=== PATIENT | female | born 1935 | race Caucasian/White ===

== ENCOUNTER 2017-01-03 10:37 | Emergency (ER) | payer MEDICARE ==
[2017-01-03 10:44] VITALS: BP 185/85
--- NOTE | 2017-01-03 10:53 | UC ---
Lower Extremity/Ankle HPI - HPI Summary HPI Summary: 81 yo female had glass top of table fall on dorsum or right foot Occurred about a week ago persistent pain and swelling able to bear wt came in at insistence of daughter - History of Current Complaint Chief Complaint: UCLowerExtremity Stated Complaint: FOOT INJURY Time Seen by Provider: 01/03/17 10:49 Hx Obtained From: Patient Onset/Duration: Sudden Onset Severity Initially: Moderate Severity Currently: Mild Pain Intensity: 4 Pain Scale Used: 0-10 Numeric Aggravating Factor(s): Standing, Ambulation Alleviating Factor(s): Rest, Elevation Able to Bear Weight: Yes - Allergies/Home Medications Allergies/Adverse Reactions: Allergies Allergy/AdvReac Type Severity Reaction Status Date / Time No Known Allergies Allergy Verified 07/27/16 10:48 Home Medications: Home Medications Lisinopril TAB* [Prinivil TAB*] 10 mg PO DAILY 01/03/17 [History Confirmed 01/03] PMH/Surg Hx/FS Hx/Imm Hx Previously Healthy: Yes Cardiovascular History: Hypertension Other History Of: Negative For: HIV, Hepatitis B, Hepatitis C - Surgical History Surgical History: Yes Surgery Procedure, Year, and Place: LEFT FOOT SURGERY/PIN PLACEMENT, INGUINAL HERNIA REPAIR, TONSILS, CATARACT REPAIR-BILATERAL EYES 2012 - Family History Known Family History: Positive: Diabetes Negative: Cardiac Disease, Hypertension, Renal Disease - Social History Alcohol Use: Weekly Alcohol Amount: WINE Substance Use Type: None Smoking Status (MU): Former Smoker Amount Used/How Often: 1/2 PPD Length of Time of Smoking/Using Tobacco: 5 YEARS Have You Smoked in the Last Year: No When Did the Patient Quit Smoking/Using Tobacco: 1972 Review of Systems Constitutional: Negative Skin: Bruising Eyes: Negative ENT: Negative Respiratory: Negative Cardiovascular: Negative Gastrointestinal: Negative Genitourinary: Negative Motor: Negative Neurovascular: Negative Musculoskeletal: Arthralgia Neurological: Negative Psychological: Negative Is Patient Immunocompromised?: No All Other Systems Reviewed And Are Negative: Yes Physical Exam Triage Information Reviewed: Yes Appearance: Well-Appearing, No Pain Distress, Well-Nourished Vital Signs: Initial Vital Signs Temp 97.1 F 01/03/17 10:41 Pulse 66 01/03/17 10:41 Resp 16 01/03/17 10:41 BP 185/85 01/03/17 10:41 Pulse Ox 99 01/03/17 10:41 Vital Signs Reviewed: Yes Eyes: Positive: Conjunctiva Clear ENT: Positive: Hearing grossly normal. Negative: Nasal congestion, Nasal drainage, Trismus, Muffled/hoarse voice Neck: Positive: Supple, Nontender Respiratory: Positive: Lungs clear, Normal breath sounds, No respiratory distress Cardiovascular: Positive: RRR, No Murmur Musculoskeletal: Positive: Edema @ - dorum of right foot Neurological: Positive: Alert Psychological Exam: Normal Lower Extremity Course/Dx - Course Course Of Treatment: declines post op shoe or CAM boot - Differential Dx/Diagnosis Provider Diagnoses: right foot contusion Discharge - Discharge Plan Condition: Stable Disposition: HOME Patient Education Materials: Contusion in Adults (ED) Referrals: Анна Caputo MD [Primary Care Provider] - 5 Days (for bp recheck) Additional Instructions: rest elevate ice tylenol if needed for pain Images Feet (Multiple View): 1 - tender and ecchymotic
--- NOTE | 2017-01-03 11:26 | RAD ---
Indication: Injury to the dorsum of the foot one week ago. Dorsal and lateral foot pain. Comparison: September 25, 2009 Technique: AP, lateral, and oblique views RIGHT foot. REPORT AND IMPRESSION: Negative for fracture or articular malalignment. Small Achilles tendon insertion bone spur. Moderate osteoarthritis at the first metatarsal phalangeal joint with mild interval worsening. Soft tissue swelling over the dorsum of the forefoot.
== END 2017-01-03 11:40 | disposition home or self-care (01) ==
LOC: UCEAST 10:37
DX: S90.31XA Contusion of right foot, initial encounter (principal); W20.8XXA Other cause of strike by thrown, projected or falling object, initial encounter; Y93.9 Activity, unspecified; Y92.9 Unspecified place or not applicable; I10 Essential (primary) hypertension; Z98.42 Cataract extraction status, left eye; Z98.41 Cataract extraction status, right eye; Z87.891 Personal history of nicotine dependence
CPT/HCPCS: 99211; G0463

== ENCOUNTER 2017-12-26 17:38 | Observation (INO) | payer MEDICARE ==
[2017-12-26] MEDS ORDERED: Nitroglycerin TAB 0.4 MG* 0.4 MG TAB SL ONE (18:16)
[2017-12-26] MEDS ORDERED: Aspirin 81 mg CHEW TAB* 81 MG TAB.CHEW PO ONE (18:16)
--- NOTE | 2017-12-26 18:22 | ED ---
HPI Chest Pain - HPI Summary HPI Summary: Pt is an 82 year old female presenting to the ED with a chief complaint of chest pain in her mid-sternal area onset around 1600 while she was on the phone. At its worst, the pain was around 7-8/10, and currently is at a 5/10, described as a sharp, stabbing pain that radiates mildly to her R trapezius area. After onset, she took 81mg aspirin which helped. She denies experiencing any nausea, diaphoresis, SOB, and ankle swelling. She also states the pain is worse upon deep breaths, and that she got very chilly when it first came on. Pt states she has a hx of HTN, HLD, diabetes, and a hiatal hernia. Pt denies a hx of CO, cardiac stents, or GERD. NKDA. - History of Current Complaint Chief Complaint: EDChestPainROMI Time Seen by Provider: 12/26/17 18:06 Hx Obtained From: Patient Onset/Duration: Started Hours Ago - around 1600 Timing: Constant Initial Severity: Moderate Current Severity: Moderate Pain Intensity: 7 Pain Scale Used: 0-10 Numeric Chest Pain Location: Mid Sternal Chest Pain Radiates: Yes Chest Pain Radiates To:: Neck - L trapezius area Character: Sharp/Stabbing Aggravating Factor(s): Deep Breaths Alleviating Factor(s): Rest, Medication - 81mg aspirin - Allergy/Home Medications Allergies/Adverse Reactions: Allergies Allergy/AdvReac Type Severity Reaction Status Date / Time No Known Allergies Allergy Verified 12/26/17 20:50 PMH/Surg Hx/FS Hx/Imm Hx Previously Healthy: No Endocrine/Hematology History: Reports: Hx Diabetes - BORDERLINE DIABETIC - CONTROLLING WITH DIET Denies: Hx Thyroid Disease Cardiovascular History: Reports: Hx Hypertension Denies: Hx Myocardial Infarction, Hx Pacemaker/ICD, Other Cardiovascular Problems/Disorders - cardiac stents Respiratory History: Reports: Other Respiratory Problems/Disorders - ELEVATED LEFT LUNG Denies: Hx Asthma, Hx Chronic Obstructive Pulmonary Disease (COPD), Hx Lung Cancer, Hx Pneumonia, Hx Pulmonary Embolism GI History: Reports: Hx Hiatal Hernia - NO MEDS Denies: Hx Gall Bladder Disease, Hx Gastroesophageal Reflux Disease, Hx Gastrointestinal Bleed, Hx Ulcer, Hx Urosepsis History: Denies: Hx Kidney Stones, Hx Renal Disease Musculoskeletal History: Reports: Hx Back Problems - spinal stenosis, herniated disk Sensory History: Reports: Hx Contacts or Glasses - GLASSES Denies: Hx Hearing Aid Opthamlomology History: Reports: Hx Contacts or Glasses - GLASSES Neurological History: Reports: Other Neuro Impairments/Disorders - PAIN CLINIC PATIENT Denies: Hx Dementia, Hx Migraine, Hx Seizures, Hx Transient Ischemic Attacks (TIA) Psychiatric History: Denies: Hx Anxiety, Hx Depression, Hx Panic Disorder, Hx Schizophrenia, Hx Bipolar Disorder - Surgical History Surgery Procedure, Year, and Place: LEFT FOOT SURGERY/PIN PLACEMENT, INGUINAL HERNIA REPAIR, TONSILS, CATARACT REPAIR-BILATERAL EYES 2013 Hx Anesthesia Reactions: No - Immunization History Immunizations Up to Date: Yes Infectious Disease History: No Infectious Disease History: Reports: Hx Shingles Denies: History Other Infectious Disease, Traveled Outside the [place] in Last 30 Days - Family History Known Family History: Positive: Diabetes Negative: Cardiac Disease, Hypertension, Renal Disease - Social History Alcohol Use: Weekly Alcohol Amount: 4-6/wk Substance Use Type: Reports: None Smoking Status (MU): Former Smoker Amount Used/How Often: 1/2 PPD Length of Time of Smoking/Using Tobacco: 5 YEARS Have You Smoked in the Last Year: No Review of Systems Positive: Chills. Negative: Skin Diaphoresis Positive: Chest Pain Negative: Shortness Of Breath Negative: Nausea Genitourinary: Negative Negative: Edema Skin: Negative Neurological: Negative Psychological: Normal All Other Systems Reviewed And Are Negative: Yes Physical Exam - Summary Physical Exam Summary: General: well-appearing, mild pain distress Skin: warm, color reflects adequate perfusion, dry Head: normal Eyes: EOMI, ROSE ENT: normal Neck: supple, nontender Respiratory: CTA, breath sounds present Cardiovascular: RRR Abdomen: soft, nontender Bowel: present Musculoskeletal: normal, strength/ROM intact Neurological: sensory/motor intact, A&O x3 Psychological: affect/mood appropriate Triage Information Reviewed: Yes Vital Signs On Initial Exam: Initial Vitals Temp Pulse Resp BP Pulse Ox 97.9 F 107 16 179/91 98 12/26/17 17:41 12/26/17 17:41 12/26/17 17:41 12/26/17 17:41 12/26/17 17:41 Vital Signs Reviewed: Yes Diagnostics - Vital Signs Vital Signs Temp Pulse Resp BP Pulse Ox 12/26/17 17:41 97.9 F 107 16 179/91 98 - Laboratory Result Diagrams: 12/26/17 18:38 12/26/17 18:38 Lab Statement: Any lab studies that have been ordered have been reviewed, and results considered in the medical decision making process. - Radiology Chest X-Ray Xray Interpretation: Positive (See Comments) - Large hiatal hernia, lungs are clear. Radiology Interpretation Completed By: ED Physician - Radiologist has not yet reviewed this report. - CT CTA Thorax/Chest CT Interpretation: Positive (See Comments) - CTA Chest/Thorax 1. No pulmonary emboli. 2. 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 CT Interpretation Completed By: Radiologist - ED physician has reviewed this report. - EKG No standard instances Cardiac Rate: NL - 85bpm EKG Rhythm: Sinus Rhythm ST Segment: Normal Ectopy: None 1749 Cardiac Rate: NL - 85bpm EKG Rhythm: Sinus Rhythm ST Segment: Normal Ectopy: None Chest Pain Course/Dx - Course Course Of Treatment: ADMIT HOSPITALIST - Diagnoses Provider Diagnoses: Chest pain Discharge - Sign-Out/Discharge Documenting (check all that apply): Patient Departure - admission - Discharge Plan Condition: Stable Disposition: ADMITTED TO [facility] Referrals: Анна Caputo MD [Primary Care Provider] - - Billing Disposition and Condition Condition: STABLE Disposition: Admitted to [facility] - Attestation Statements Document Initiated by Ruizibe: Yes Documenting Scribe: Gema Borjas Provider For Whom Ruddye is Documenting (Include Credential): Keith Field MD. Scribe Attestation: Gema Jackson, scribed for Keith Field MD. on 12/26/17 at 2121. Scribe Documentation Reviewed: Yes Provider Attestation: The documentation as recorded by the [email or web address] accurately reflects the service I personally performed and the decisions made by me, Keith Field MD. Consult Consult: 2049 - Spoke with Jamaal De La Torre MD., who will be the accepting physician for the patient.
[2017-12-26] MEDS ORDERED: NS 0.9% 1000 ML* 1,000 ML IV SCH (18:30)
[2017-12-26 18:45] LABS: ABS Basophils 0.1 10^3/ul (0-0.2); ABS Eosinophils 0.1 10^3/ul (0-0.6); ABS Lymphocytes 1.2 10^3/ul (1.0-4.8); ABS Monocytes 0.5 10^3/ul (0-0.8); ABS Neutrophils 9.8 10^3/ul (1.5-7.7); ABS Nucleated RBC 0 10^3/ul; Eosinophil % 0.7 % (0-6); Hematocrit 36 % (35-47); Hemoglobin 12.2 g/dl (12.0-16.0); Lymphocyte % 10.4 % (25-47); Mean Corpuscular HGB Conc 34 g/dl (31-36); Mean Corpuscular Hemoglobin 32 pg (27-31); Mean Corpuscular Volume 96 fL (80-97); Mean Platelet Volume 8.1 um3 (7.4-10.4); Nucleated Red Blood Cells % 0; Platelet Count 274 10^3/ul (150-450); Red Blood Count 3.76 10^6/ul (4.00-5.40); Red Cell Distribution Width 12 % (10.5-15); White Blood Count 11.5 10^3/ul (3.5-10.8)
[2017-12-26 18:53] LABS: INR 0.93 (0.77-1.02)
[2017-12-26] MEDS ORDERED: Iohexol 350* (CONTRAST) 500 ML MDV IV ONE (19:47)
[2017-12-26] MEDS ORDERED: Magnesium Sulfate 2 GM IV* 2 GM/50 ML BAG IVPB ONE (19:55)
--- NOTE | 2017-12-26 20:33 | RAD ---
EXAM: CT Angiography Chest With Intravenous Contrast CLINICAL HISTORY: 82 years old, female; Pain; Chest pain; Prior surgery; Surgery date: 6+ months; Additional info: Chest pain, positive ddimer TECHNIQUE: Axial computed tomographic angiography images of the chest with intravenous contrast using pulmonary embolism protocol. All CT scans at this facility use at least one of these dose optimization techniques: automated exposure control; mA and/or kV adjustment per patient size (includes targeted exams where dose is matched to clinical indication); or iterative reconstruction. MIP reconstructed images were created and reviewed. Coronal and sagittal reformatted images were created and reviewed. CONTRAST: 62 mL of OMNIPAQUE 350 administered intravenously. COMPARISON: DX - CXR CHEST PA LAT 2 VWS 01/14/2014 10:35 AM FINDINGS: Pulmonary arteries: Pulmonary arteries are well opacified to the subsegmental branches. Normal caliber main pulmonary artery. No filling defects throughout the pulmonary artery tree. Aorta: The aorta demonstrates mild atherosclerotic calcification. Lungs: Mild compressive atelectasis of the left lung base. No pulmonary nodules, masses, or consolidations. No bronchiectasis, peribronchial thickening, or luminal defects. Pleural space: Normal. No significant effusion. No pneumothorax. Heart: Normal. No cardiomegaly. No significant pericardial effusion. No evidence of RV dysfunction. Thyroid: No thyroid nodules. Bones/joints: The thoracic spine demonstrates mild degenerative changes at multiple levels. No fractures. No suspicious bone lesions. No dislocation. Soft tissues: Normal. Lymph nodes: Normal. No enlarged lymph nodes. Upper abdomen: Markedly elevated left hemidiaphragm which is unchanged compared to prior studies. IMPRESSION: 1. No pulmonary emboli. 2. 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
[2017-12-26] MEDS ORDERED: Al Hydrox/Mg Hydrox/Simet LIQ* 30 ML UDC PO ONE ×2 (20:45→21:32)
[2017-12-26] MEDS ORDERED: Lidocaine 2% VISCOUS* 15 ML UDC PO ONE (20:45)
[2017-12-26] MEDS ORDERED: Potassium Chloride LIQUID* 20 MEQ PACKET PO ONE (21:39)
[2017-12-26] MEDS ORDERED: Metoprolol Tartrate TAB* 25 MG PO SCH (22:00)
[2017-12-26] MEDS ORDERED: Acetaminophen TAB* 325 MG PO PRN (22:59)
[2017-12-26] MEDS ORDERED: Morphine INJ* 2 MG/ML 1 ML SYRINGE (TWO MG - NEW SYRINGE VERSION) IV PRN (22:59)
[2017-12-26] MEDS: Omeprazole CAP* 20 MG PO SCH (23:09)
[2017-12-26] MEDS: Atorvastatin* 80 MG TAB PO SCH (23:10)
[2017-12-26] MEDS: Heparin VIAL(*) 5000 UNITS/ML VIAL (FIVE THOUSAND) SUBCUT SCH (23:13)
[2017-12-26] MEDS: Carvedilol TAB* 6.25 MG PO SCH (23:49)
[2017-12-27] MEDS ORDERED: Magnesium Sulfate 1 GM IV* 1 GM/100 ML BAG IV ONE
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
[2017-12-27] MEDS: Heparin VIAL(*) 5000 UNITS/ML VIAL (FIVE THOUSAND) SUBCUT SCH (05:13)
[2017-12-27 05:45] LABS: Urine Appearance Clear; Urine Blood 2+ (Negative); Urine Color Yellow; Urine Ketones Negative (Negative); Urine Protein Negative (Negative); Urine Red Blood Cell 2+(6-10/hpf) (Absent); Urine Specific Gravity 1.024 (1.010-1.030); Urine Urobilinogen Negative (Negative); Urine White Blood Cell 3+(>20/hpf) (Absent)
[2017-12-27 06:18] LABS: ABS Basophils 0 10^3/ul (0-0.2); ABS Eosinophils 0 10^3/ul (0-0.6); ABS Lymphocytes 1.1 10^3/ul (1.0-4.8); ABS Monocytes 0.7 10^3/ul (0-0.8); ABS Neutrophils 7.6 10^3/ul (1.5-7.7); ABS Nucleated RBC 0 10^3/ul; Eosinophil % 0.2 % (0-6); Hematocrit 33 % (35-47); Hemoglobin 11.4 g/dl (12.0-16.0); Lymphocyte % 11.8 % (25-47); Mean Corpuscular HGB Conc 35 g/dl (31-36); Mean Corpuscular Hemoglobin 33 pg (27-31); Mean Corpuscular Volume 96 fL (80-97); Mean Platelet Volume 8.1 um3 (7.4-10.4); Nucleated Red Blood Cells % 0; Platelet Count 251 10^3/ul (150-450); Red Blood Count 3.42 10^6/ul (4.00-5.40); Red Cell Distribution Width 12 % (10.5-15); White Blood Count 9.5 10^3/ul (3.5-10.8)
[2017-12-27 06:42] LABS: EGFR Non-African American 75.3 (>60)
--- NOTE | 2017-12-27 07:12 | RAD ---
INDICATION: Chest pain. COMPARISON: Comparison is made with a prior chest x-ray study from January 14, 2014. TECHNIQUE: A portable view of the chest was obtained. FINDINGS: The heart appears within normal limits in size. There is prominent elevation of the left hemidiaphragm versus a large diaphragmatic hernia which has progressed slightly from the prior exam. The lungs appear grossly clear. No pleural effusion is seen. IMPRESSION: ELEVATION OF THE LEFT HEMIDIAPHRAGM VERSUS LARGE DIAPHRAGMATIC HERNIA WHICH HAS PROGRESSED SLIGHTLY FROM THE PRIOR STUDY. THE LUNGS ARE CLEAR. R0
[2017-12-27] MEDS ORDERED: Regadenoson* 0.4 MG/5 ML SYRINGE ONE (08:54)
[2017-12-27] MEDS ORDERED: Aminophylline IV* 25 MG/ML 10 ML VIAL ONE (08:55)
[2017-12-27] MEDS ORDERED: Losartan TAB* 25 MG PO SCH (09:00)
[2017-12-27] MEDS ORDERED: Hydrochlorothiazide TAB* 25 MG PO SCH (09:00)
[2017-12-27] MEDS ORDERED: Aspirin 81 mg CHEW TAB* 81 MG TAB.CHEW PO SCH (09:00)
--- NOTE | 2017-12-27 10:27 | RAD ---
Edited for charges. INDICATION: Chest pain, diabetes, hypertension, elevated cholesterol. History of tobacco use. COMPARISON: No relevant prior exams available on the [facility] PACS for comparison. TECHNIQUE: 10.600 mCi of Tc-99m Myoview were administered IV. SPECT images of the heart were obtained. Later on the same day. Under the direction of Dr. Christy, the patient was given an IV injection of a pharmacologic stress agent. Subsequently, the patient was given an IV injection of 25.100 mCi Tc-99m Myoview. SPECT images of the heart were obtained and a gated wall motion study was performed. FINDINGS: Large hiatal hernia extending to the LEFT hemithorax. Associated rightward displacement of the mediastinum. Gated wall motion images were obtained at stress and demonstrate wall motion to be within normal limits. The calculated left ventricular ejection fraction is 53 % at stress. Estimated LEFT ventricular end diastolic volume is 53 mL. TID 1.29. Subtle small region of decreased perfusion at the anterior wall septal junction from the apex through the base at stress with suggestion of reversal at rest. No fixed myocardial perfusion defects evident. IMPRESSION: #. Suggestion of potential small region of stress-induced ischemia involving the anterior wall septal junction. #. Borderline elevated t.i.d. favoring distal small vessel disease. #. Normal range LEFT ventricular wall motion and low normal ejection fraction. ASSESSMENT: Low risk based on nuclear portion. Based on imaging criteria from ACC/AHA 2002 Guideline Update for the Management of Patients With Chronic Stable Angina Table 23. Noninvasive Risk Stratification. MTDD
[2017-12-27 11:51] VITALS: BP 124/57
[2017-12-27] MEDS: Atorvastatin* 80 MG TAB PO SCH (13:03)
[2017-12-27] MEDS: Omeprazole CAP* 20 MG PO SCH (13:29)
[2017-12-27] MEDS: Carvedilol TAB* 6.25 MG PO SCH (13:30)
--- NOTE | 2017-12-27 22:04 | DS ---
CC: Dr. Анна Caputo * DISCHARGE SUMMARY: DATE OF ADMISSION: 12/26/17. DATE OF DISCHARGE: 12/27/17. PRIMARY CARE PROVIDER: Dr. Анна Caputo. DISCHARGE DIAGNOSIS: Chest pain likely related to large hiatal hernia. SECONDARY DIAGNOSES: 1. Dyslipidemia. 2. Hypertension. 3. History of hiatal hernia. 4. Osteoarthritis. 5. History of prediabetes. 6. History of diastolic dysfunction. MEDICATIONS AT DISCHARGE: Include: 1. Aspirin 81 mg daily. 2. Losartan 25 mg daily. 3. Hydrochlorothiazide 25 mg daily. 4. Lipitor 10 mg daily. Lipitor was prescribed as a new medication. CONSULTATIONS DURING THE HOSPITAL STAY: Included Dr. Prado from Gastroenterology. HOSPITALIZATION COURSE: Ashely Stanley is an 82-year-old female with history of hiatal hernia, and prediabetes, who presented to the hospital on 12/26/17 complaining of midsternal chest pain radiating to her throat. For further details of the patient's presentation, please see history and physical dictated by Dr. De La Torre on admission. The pain resolved in the emergency department after treatment with GI cocktail. The patient also received nitroglycerin and aspirin. Due to elevation of D-dimer, a CT angiogram was obtained, which showed a portion of small intestine, as well as entire stomach within the left chest area due to large hiatal hernia. The patient's troponins continued to be negative throughout her hospital stay. Her stress test was assessed as low probability, although it did show a tiny area of reversible ischemia likely due to small vessel disease. At this point, with negative troponins and no significant EKG changes, the pain was likely related to GI issues and hiatal hernia. Nevertheless, the patient may have a small area of ischemia likely due to small vessel. At this point, due to her LDL being 100 and to optimize her medically for possibility of heart disease, the patient was recommended a low dose of Lipitor to be started. She is to continue aspirin. For her hiatal hernia, she was recommended to continue frequent small meals. The patient's hemoglobin A1c is 6.4 and she is aware of being prediabetic. She is to continue to low sugar diet. The patient is recommended to forward it to primary care provider in approximately 4 to 7 days. LABORATORY DATA AND STUDIES PERFORMED DURING THE HOSPITAL STAY: Included: On 12/27/17, white blood cell count was 9.5, hemoglobin of 11.4, hematocrit of 33, and platelets of 151. D-dimer on admission was 412. On 12/27/17, sodium of 137, potassium 4.1, chloride 102, carbon dioxide 30, BUN 17, creatinine 0.74. Hemoglobin A1c was 6.4. Estimated cholesterol profile showed triglycerides of 94, cholesterol was above 179, LDL of 100, and HDL 60. Lipase was 65 on admission and TSH was 1.02. CT of chest obtained on 12/26/17 impression "no pulmonary emboli. 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 Nuclear medicine cardiac stress test noted on 12/27/17 was assessed as low risk. Furthermore, in the impression it showed "suggestion of potential small area of stress-induced ischemia involving the entire villasenor of the occipital junction. Borderline elevated TID favoring distal small vessel disease. No right ventricular wall motion and low normal ejection fraction." PHYSICAL EXAMINATION: At discharge is unchanged from admission. Apart from that during my evaluation, I could hear bowel sounds and on auscultation of the left chest likely related to the patient's large hiatal hernia. [id number]/[facility] #: [id number] MTDD
== END 2017-12-27 14:51 | disposition home or self-care (01) ==
LOC: ED 17:38 → MEDTELE 21:04
PROVIDERS: ADMIT Internal Medicine; ATTEND Internal Medicine
DX: R07.9 Chest pain, unspecified (principal); E78.5 Hyperlipidemia, unspecified; I10 Essential (primary) hypertension; Z87.19 Personal history of other diseases of the digestive system; M19.90 Unspecified osteoarthritis, unspecified site; I50.32 Chronic diastolic (congestive) heart failure; Z79.82 Long term (current) use of aspirin; Z87.891 Personal history of nicotine dependence
CPT/HCPCS: 36415; 71045; 71275; 78452; 80048; 80053; 80061; 81003; 81015; 82550; 82553; 83036; 83605; 83690; 83735; 83880; 84443; 84484; 85025; 85379; 85610; 85730; 86140; 87077; 87086; 87186; 93005; 93017; 96360; 99284; A9270-GY; A9502; G0378; J0280; J1644; J2270; J2785; J3475; Q9967

== ENCOUNTER 2018-03-03 22:23 | Inpatient (IN) | payer MEDICARE ==
[2018-03-03] MEDS ORDERED: NS 0.9% 1000 ML* 1,000 ML IV ONE (22:39)
--- NOTE | 2018-03-03 22:39 | ED ---
GI/ HPI - HPI Summary HPI Summary: This pt is an 82 y/o female presenting to [facility] c/o rectal bleeding since this morning. Pt reports she woke up this morning to go to the bathroom and had bloody stools. She describes tarry with bright red blood in stools. Additionally notes feeling dizzy and thirsty. Denies fever, abd pain, chest pain , SOB. She reports similar symptoms 20 years ago and had 2 transfusions. She had a sigmoidoscopy then that resulted normal. Denies having had any colonoscopies. - History of Current Complaint Chief Complaint: EDGIBleed Time Seen by Provider: 03/03/18 22:30 Stated Complaint: RECTAL BLEEDING Hx Obtained From: Patient Onset/Duration: Started Hours Ago, Still Present Timing: Lasting Hours Current Severity: Moderate Pain Intensity: 0 - denies pain Associated Signs and Symptoms: Positive: Dizziness, Bright Red Blood w/Stool, Blood w/Stool, Other: - POS: thirsty. Negative: Nausea, Vomiting, Fever, Chills , Abdominal Pain, Chest Pain Aggravating Factor(s): Nothing Alleviating Factor(s): Nothing - Allergy/Home Medications Allergies/Adverse Reactions: Allergies Allergy/AdvReac Type Severity Reaction Status Date / Time No Known Allergies Allergy Verified 03/03/18 22:29 PMH/Surg Hx/FS Hx/Imm Hx Endocrine/Hematology History: Reports: Hx Diabetes - BORDERLINE DIABETIC - CONTROLLING WITH DIET Denies: Hx Thyroid Disease Cardiovascular History: Reports: Hx Angina, Hx Hypercholesterolemia, Hx Hypertension Denies: Hx Myocardial Infarction, Hx Pacemaker/ICD, Other Cardiovascular Problems/Disorders - cardiac stents Respiratory History: Reports: Other Respiratory Problems/Disorders - ELEVATED LEFT LUNG Denies: Hx Asthma, Hx Chronic Obstructive Pulmonary Disease (COPD), Hx Lung Cancer, Hx Pneumonia, Hx Pulmonary Embolism GI History: Reports: Hx Hiatal Hernia - NO MEDS Denies: Hx Gall Bladder Disease, Hx Gastroesophageal Reflux Disease, Hx Gastrointestinal Bleed, Hx Ulcer, Hx Urosepsis History: Denies: Hx Kidney Stones, Hx Renal Disease Musculoskeletal History: Reports: Hx Back Problems - spinal stenosis, herniated disk Sensory History: Reports: Hx Cataracts - Surgically removed, Hx Contacts or Glasses Denies: Hx Hearing Aid Opthamlomology History: Reports: Hx Cataracts - Surgically removed, Hx Contacts or Glasses Neurological History: Reports: Other Neuro Impairments/Disorders - PAIN CLINIC PATIENT Denies: Hx Dementia, Hx Migraine, Hx Seizures, Hx Transient Ischemic Attacks (TIA) Psychiatric History: Denies: Hx Anxiety, Hx Depression, Hx Panic Disorder, Hx Schizophrenia, Hx Bipolar Disorder - Surgical History Surgery Procedure, Year, and Place: LEFT FOOT SURGERY/PIN PLACEMENT, INGUINAL HERNIA REPAIR, TONSILS, CATARACT REPAIR-BILATERAL EYES 2013 Hx Anesthesia Reactions: No Infectious Disease History: No Infectious Disease History: Reports: Hx Shingles Denies: Hx of Known/Suspected MRSA, Hx Tuberculosis, History Other Infectious Disease, Traveled Outside the [place] in Last 30 Days - Family History Known Family History: Positive: Diabetes Negative: Cardiac Disease, Hypertension, Renal Disease - Social History Alcohol Use: Weekly Alcohol Amount: 4-6 drinks a week Substance Use Type: Reports: None Smoking Status (MU): Former Smoker Amount Used/How Often: 1/2 PPD Length of Time of Smoking/Using Tobacco: 5 YEARS Have You Smoked in the Last Year: No Review of Systems Constitutional: Other - POS: thirsty Negative: Fever, Chills Negative: Chest Pain Negative: Shortness Of Breath Gastrointestinal: Other - POS: rectal bleeding, bloody stools Negative: Abdominal Pain Neurological: Other - POS: dizziness All Other Systems Reviewed And Are Negative: Yes Physical Exam - Summary Physical Exam Summary: VITAL SIGNS: Reviewed. GENERAL: Patient is a well-developed and nourished female who is lying comfortable in the stretcher. Patient is not in any acute respiratory distress. HEAD AND FACE: No signs of trauma. No ecchymosis, hematomas or skull depressions. No sinus tenderness. EYES: PERRLA, EOMI x 2, No injected conjunctiva, no nystagmus. EARS: Hearing grossly intact. Ear canals and tympanic membranes are within normal limits. MOUTH: Oropharynx within normal limits. NECK: Supple, trachea is midline, no adenopathy, no JVD, no carotid bruit, no c- spine tenderness, neck with full ROM. CHEST: Symmetric, no tenderness at palpation LUNGS: Clear to auscultation bilaterally. No wheezing or crackles. CVS: Tachycardic rate and regular rhythm, S1 and S2 present, no murmurs or gallops appreciated. ABDOMEN: Soft, non-tender. No signs of distention. No rebound no guarding, and no masses palpated. Bowel sounds are normal. 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 Pt has maroon blood coming out from rectum EXTREMITIES: FROM in all major joints, no edema, no cyanosis or clubbing. NEURO: Alert and oriented x 3. No acute neurological deficits. Speech is normal and follows commands. SKIN: Dry and warm. Pt is pale. Triage Information Reviewed: Yes Vital Signs On Initial Exam: Initial Vitals Temp Pulse Resp BP Pulse Ox 97.8 F 124 18 144/79 99 03/03/18 22:27 03/03/18 22:27 03/03/18 22:27 03/03/18 22:27 03/03/18 22:27 Vital Signs Reviewed: Yes Diagnostics - Vital Signs Vital Signs Temp Pulse Resp BP Pulse Ox 03/03/18 22:27 97.8 F 124 18 144/79 99 - Laboratory Result Diagrams: 03/03/18 22:49 03/03/18 22:49 Lab Statement: Any lab studies that have been ordered have been reviewed, and results considered in the medical decision making process. - EKG 23:32 Cardiac Rate: Tachycardia - at 100 bpm EKG Rhythm: Sinus Tachycardia Summary of EKG Findings: Normal axis. Normal interval. No ischemic changes GIGU Course/Dx - Course Assessment/Plan: Pt is an 82 y/o female who presents to the ED with rectal bleeding since this morning. Pt reports she woke up this morning to go to the bathroom and had bloody stools. She describes tarry with bright red blood in stools. Additionally notes feeling dizzy and thirsty. Denies fever, abd pain, chest pain, SOB. She reports similar symptoms 20 years ago and had 2 transfusions. She had a sigmoidoscopy then that resulted normal. Denies any past colonoscopies. Labs show hemoglobin of 10.3, hematocrit of 30, potassium of 3, glucose of 188. In the ED course the pt was given potassium chloride and IV fluids. I discussed the case with Dr. Silva, hospitalist, who accepted the pt for admission. - Diagnoses Provider Diagnoses: Rectal bleed - Physician Notifications Discussed Care Of Patient With: Gema Silva - hospitalist Time Discussed With Above Provider: 23:46 Instructed by Provider To: Admit As Inpatient Discharge - Sign-Out/Discharge Documenting (check all that apply): Patient Departure - Admit to [facility] - Discharge Plan Condition: Stable Disposition: ADMITTED TO [facility] Referrals: O'Aracelis,[place], MD [Primary Care Provider] - - Attestation Statements Document Initiated by Scribe: Yes Documenting Scribe: Griselda Tavares Provider For Whom Scribe is Documenting (Include Credential): Romi Wilkes MD Scribe Attestation: IGriselda, scribed for Romi Wilkes MD on 03/03/18 at 2352.
[2018-03-03 22:56] LABS: ABS Basophils 0.1 10^3/ul (0-0.2); ABS Eosinophils 0 10^3/ul (0-0.6); ABS Lymphocytes 1.8 10^3/ul (1.0-4.8); ABS Monocytes 0.6 10^3/ul (0-0.8); ABS Neutrophils 6.5 10^3/ul (1.5-7.7); ABS Nucleated RBC 0 10^3/ul; Eosinophil % 0.5 % (0-6); Hematocrit 30 % (35-47); Hemoglobin 10.3 g/dl (12.0-16.0); Lymphocyte % 19.8 % (25-47); Mean Corpuscular HGB Conc 34 g/dl (31-36); Mean Corpuscular Hemoglobin 33 pg (27-31); Mean Corpuscular Volume 97 fL (80-97); Mean Platelet Volume 8.3 fL (7.4-10.4); Nucleated Red Blood Cells % 0; Platelet Count 255 10^3/ul (150-450); Red Cell Distribution Width 13 % (10.5-15); White Blood Count 9.1 10^3/ul (3.5-10.8)
[2018-03-03 23:04] LABS: Activated Partial Thrombo Time 25.6 seconds (26.0-36.3); INR 0.97 (0.77-1.02)
[2018-03-03 23:22] LABS: Albumin 3.8 g/dL (3.2-5.2)
[2018-03-03 23:24] LABS: Calcium 8.5 mg/dL (8.6-10.3); Total Bilirubin 0.5 mg/dL (0.2-1.0)
[2018-03-03 23:28] LABS: Albumin/Globulin Ratio 1.5 (1-3); BUN/Creatinine Ratio 32.4 (8-20); EGFR Non-African American 75.3 (>60); Globulin 2.5 g/dL (2-4); Total Protein 6.3 g/dL (6.4-8.9)
[2018-03-03] MEDS ORDERED: KCL 10 MEQ/50 ML IVPREMIX* 10 MEQ/50 ML BAG IV ONE (23:39)
[2018-03-04] MEDS ORDERED: Al Hydrox/Mg Hydrox/Simet LIQ* 30 ML UDC PO PRN (00:15)
[2018-03-04] MEDS: Pantoprazole* 80 mg IN NS 80 MG/250 ML BAG IVPB SCH ×3 (02:04→22:39)
[2018-03-04] MEDS: NS 0.9% 1000 ML* 1,000 ML IV SCH ×3 (02:12→21:05)
[2018-03-04 03:41] LABS: Hematocrit 24 % (35-47); Hemoglobin 8.1 g/dl (12.0-16.0)
--- NOTE | 2018-03-04 05:04 | HP ---
CC: Dr. Анна Caputo * HISTORY AND PHYSICAL: DATE OF ADMISSION: 03/04/18 TIME OF EVALUATION: 0000. PRIMARY CARE PHYSICIAN: Dr. Анна Caputo. CHIEF COMPLAINT: Bloody stools. HISTORY OF PRESENT ILLNESS: This is an 82-year-old female with a past medical history of hypertension, on baby aspirin, who presents to the emergency room with 1 day of bloody, tarry, bright red blood stools. The patient states 28 years ago, she had a similar episode where she had a day of tarry stools. She had a sigmoidoscopy at that time that was unremarkable. She has had no further GI bleeding since then. Today, she was in her usual state of health when she woke up and developed bright red blood and tarry stools of 9 episodes. Initially, it tapered off, but then started to product picker in significance, this evening in the emergency room, she has had watery stools. No abdominal pain, nausea, or vomiting. She does feel slightly faint after each episode of having a bowel movement. She denies any chest pain, no shortness of breath, no dizziness, no urinary symptoms. She has had a slight decrease in her weight. Otherwise, review of systems negative. In the emergency room, the patient had labs, guaiac positive, and was referred to the hospitalist service for further evaluation. PAST MEDICAL HISTORY: 1. Hypertension. 2. Remote history of rectal bleed 28 years ago. MEDICATIONS: 1. Aspirin 81 mg p.o. daily. 2. Hydrochlorothiazide daily. 3. Vitamin E 400 mg p.o. daily. 4. Cozaar 25 mg p.o. daily. ALLERGIES: No known drug allergies. FAMILY HISTORY: Mother in her 80s from diabetes. Father from an MVA. SOCIAL HISTORY: The patient lives alone. She is independent of her ADLs. No history of tobacco use. She drinks a glass of wine few times per week when she is playing [employer]. Code status, full code. Healthcare proxy is her daughter. REVIEW OF SYSTEMS: A 14-point of review of systems as mentioned in the HPI, otherwise negative. PHYSICAL EXAMINATION GENERAL: No acute distress, resting comfortably. VITAL SIGNS: Temp 97.8, pulse rate 100, respiratory rate 16, oxygen saturation 97% on room air, and blood pressure 166/82. HEENT: Head normocephalic. Pupils are equal and reactive. Anicteric. Oropharynx: Mucous membranes are dry. NECK: Supple. No lymphadenopathy. RESPIRATORY: Clear to auscultation. No wheeze, rhonchi or rales. CARDIAC: Regular rate and rhythm. Systolic murmur most prominent at the apex. ABDOMEN: Hyperactive bowel sounds. Soft, nontender, nondistended. EXTREMITIES: Trace pretibial edema. NEUROLOGIC: Alert and oriented x3. No gross focal neurological deficits. DIAGNOSTIC STUDIES/LAB DATA: White count 9.1, hemoglobin 10.3, hematocrit 30, platelets 255. INR was 0.97. Sodium 137, potassium 3, chloride 102, bicarb 29 , BUN 24, creatinine 0.74, calcium is 8.5. EKG shows sinus tachycardia with a rate of 100. ASSESSMENT AND PLAN: This is an 82-year-old female with past medical history of hypertension, on baby aspirin, presents to the emergency room with 1 day of bloody, tarry stools. Assessment: The patient is hemodynamically stable. Her H and H is slightly lower than her last one. I suspect this is most likely a diverticular bleed. Could be an upper gastrointestinal bleed, but is not consistent with that. PLAN: We will bring her in for observation. Keep her on a clear liquid diet. Serial H and H, start her on a PPI drip, and hold her aspirin. If she does have a significant drop in her H and H, will transfuse and consider GI consultation. CHRONIC MEDICAL PROBLEMS: We will hold her antihypertensives and her aspirin. FEN: Keep her on clear liquid diet with IV fluids. DVT prophylaxis: The patient scores high risk. We will place her on SCDs. Code status: Full code. PATIENT TIME: Greater than 45 minutes was spent doing the history and physical , more than half the time was spent in direct patient contact. [id number]/[facility] #: [id number] YULISA
[2018-03-04 07:43] LABS: ABS Basophils 0 10^3/ul (0-0.2); ABS Eosinophils 0 10^3/ul (0-0.6); ABS Lymphocytes 1.1 10^3/ul (1.0-4.8); ABS Monocytes 0.5 10^3/ul (0-0.8); ABS Neutrophils 5.1 10^3/ul (1.5-7.7); ABS Nucleated RBC 0 10^3/ul; Eosinophil % 0.2 % (0-6); Hematocrit 21 % (35-47); Hemoglobin 7.3 g/dl (12.0-16.0); Lymphocyte % 16.7 % (25-47); Mean Corpuscular HGB Conc 35 g/dl (31-36); Mean Corpuscular Hemoglobin 33 pg (27-31); Mean Corpuscular Volume 96 fL (80-97); Mean Platelet Volume 7.9 fL (7.4-10.4); Nucleated Red Blood Cells % 0; Platelet Count 162 10^3/ul (150-450); Red Blood Count 2.18 10^6/ul (4.00-5.40); Red Cell Distribution Width 13 % (10.5-15); White Blood Count 6.7 10^3/ul (3.5-10.8)
[2018-03-04 08:01] LABS: BUN/Creatinine Ratio 44.3 (8-20); Calcium 7.6 mg/dL (8.6-10.3); EGFR Non-African American 94.1 (>60); Potassium 3.1 mmol/L (3.5-5.0)
[2018-03-04 09:48] LABS: Hematocrit 21 % (35-47)
--- NOTE | 2018-03-04 11:29 | PN ---
Subjective Date of Service: 03/04/18 Interval History: Ms. Stanley is feeling well today. She offers no complaints other than continued GI bleeding. She reports one episode of blood per rectum this morning. Nursing reports that it was a large amount. The patient denies CP, SOB , N/V, dizziness. She is hesitant to consider an endoscopy procedure, but agreeable to seeing GI in consultation. She has never had a colonoscopy. Last had a sigmoidoscopy 28 years ago when she had her last GI bleed. Family History: Unchanged from Admission Social History: Unchanged from Admission Past Medical History: Unchanged from Admission Objective Active Medications: Al Hydrox/Mg Hydrox/Simethicone (Maalox Plus*) 30 ml PO Q6H PRN Sodium Chloride (Ns 0.9% 1000 Ml*) 1,000 mls @ 125 mls/hr IV PER RATE CR Pantoprazole Sodium (Protonix Iv Bag*) 80 mg in 250 mls @ 25 mls/hr IVPB Q10H CR Ondansetron HCl (Zofran Inj*) 4 mg IV Q4H PRN Vital Signs - 8 hr 03/04/18 03/04/18 03:46 05:53 Temperature 97.8 F 97.8 F Pulse Rate 90 101 Respiratory 16 20 Rate Blood Pressure 97/48 107/61 (mmHg) O2 Sat by Pulse 98 97 Oximetry Oxygen Devices in Use Now: None Appearance: Elderly female sitting in bed in NAD Eyes: No Scleral Icterus Ears/Nose/Mouth/Throat: Mucous Membranes Moist Neck: NL Appearance and Movements; NL JVP Respiratory: Symmetrical Chest Expansion and Respiratory Effort, Clear to Auscultation Cardiovascular: NL Sounds; No Murmurs; No JVD, RRR Abdominal: NL Sounds; No Tenderness; No Distention Extremities: No Edema Skin: No Rash or Ulcers Neurological: Alert and Oriented x 3 Lines/Tubes/Other Access: Clean, Dry and Intact Peripheral IV Nutrition: Taking PO's Result Diagrams: 03/04/18 13:43 03/04/18 07:33 Assess/Plan/Problems-Billing Assessment: Ms. Stanley is an 82yo with PMH of HTN who presented to the ED with c/o bloody stools for one day and was admitted for GI bleed. - Patient Problems (1) Lower GI bleed Current Visit: Yes Status: Acute Code(s): K92.2 - GASTROINTESTINAL HEMORRHAGE, UNSPECIFIED SNOMED Code(s): 91629926 Comment: - Likely diverticular in nature - Continue serial H&H; last which is likely somewhat dilutional - Will transfuse for Hgb <7 or Hgb <8 and symptomatic - Appreciate GI consult; will order golytely per recommendations from Dr. Ching- Kvng - Hold aspirin - Continue IVF (2) HTN (hypertension) Current Visit: Yes Status: Acute Code(s): I10 - ESSENTIAL (PRIMARY) HYPERTENSION SNOMED Code(s): 07277858 Comment: - Normotensive - Hold losartan and HCTZ (3) DVT prophylaxis Current Visit: Yes Status: Acute Code(s): NBX2347 - SNOMED Code(s): 534177798 Comment: - SCDs (4) Full code status Current Visit: Yes Status: Acute Code(s): Z78.9 - OTHER SPECIFIED HEALTH STATUS SNOMED Code(s): 403687723 Status and Disposition: Inpatient. Anticipate d/c home when medically stable.
[2018-03-04] MEDS ORDERED: PEG 3000 GI LAVAGE* 1 GALLON PO ONE (11:30)
[2018-03-04 13:48] LABS: Hematocrit 19 % (35-47); Hemoglobin 6.5 g/dl (12.0-16.0)
[2018-03-04] MEDS ORDERED: KCL 20 MEQ/100 ML IVPREMIX* 20 MEQ/100 ML BAG IV ONE (14:18)
--- NOTE | 2018-03-04 15:16 | CONS ---
GASTROENTEROLOGY CONSULT REPORT: DATE OF CONSULT: 03/04/18 REQUESTING PHYSICIAN: Gema Silva MD REASON FOR CONSULT: Bloody stools. HISTORY OF PRESENT ILLNESS: Ms. Stanley is an 82-year-old woman with a history of hypertension, hyperlipidemia, hiatal hernia, osteoarthritis, prediabetes, diastolic dysfunction and remote history of rectal bleeding requiring transfusion, who presents to the ER with hematochezia x1 day. Ms. Stanley was in her usual state of health until yesterday morning when she had a large episode of bright red blood with clots mixed with stool. Throughout the day, she had a few episodes of smaller volume rectal bleeding. She felt weak and unwell during the day, although she denied any episodes of syncope, nausea, vomiting or abdominal pain. In the evening around 9:30 p.m., she had another large episode of bright red blood mixed with stool and clots. Her son-in-law brought her to the ER for evaluation. On arrival to the ER, Ms. Stanley was initially tachycardic to 124 with blood pressure 144/79. Heart rate improved with fluids and blood pressure has remained stable. Labs were notable for hemoglobin of 10.3 and hematocrit of 30. Her repeat blood count this morning had dropped to 7.3 and 21 with a repeat after 2 hours being stable at 7 and 21. Overnight, she did not have any episodes, but this morning she has had 2 episodes of smaller volume dark red blood. Her bowel movements prior to yesterday were normal formed brown stools. She has not seen any black or tarry stools. She has not seen any intermittent rectal bleeding. She says that around 30 years ago, she had a similar episode of rectal bleeding and was told her numbers "were down to 4." She was given blood transfusions at that time. She recalls that a flexible sigmoidoscopy and barium enema were done, and she believes she was told the bleed was likely related to diverticulosis. She has never had a colonoscopy. No recurrent bleeding episodes since this time. On GI review of systems, Ms. Stanley denies any heartburn, nausea, vomiting, dysphagia, abdominal pain, diarrhea, constipation, rectal bleeding, melena or weight loss. She did have a hospitalization in December 2017 when she had some chest discomfort with deep breathing. She was told this was likely due to hiatal hernia noticed incidentally on CT chest imaging. She recalls having been told she has a hiatal hernia in the past. She adjusted her diet and has had no recurrent symptoms of chest pain. She is not on any NSAIDs or PPI. REVIEW OF SYSTEMS: A 12-point review of systems reviewed and negative except as mentioned in the HPI. PAST MEDICAL HISTORY: Includes: Hypertension, hyperlipidemia, hiatal hernia, osteoarthritis, prediabetes, diastolic dysfunction, and remote history of GI bleed requiring transfusion, presumed to be secondary to diverticular bleed. PAST SURGICAL HISTORY: No abdominal surgeries. MEDICATIONS: 1. Aspirin 81 daily. 2. Hydrochlorothiazide. 3. Cozaar 25 mg daily. ALLERGIES: No known drug allergies. FAMILY HISTORY: Mother in her 80s from diabetes, father from a car accident. No known GI or liver disease. SOCIAL HISTORY: Lives alone. Independent for ADLs. No tobacco use. Intermittent minimal alcohol use. No drug use. PHYSICAL EXAM: Vital Signs: Reviewed, the patient is afebrile, heart rate 90 to 101, blood pressure 107/61, 97% on room air. General: Well appearing, pleasant elderly woman, lying in bed, visiting with friend, no acute distress. HEENT: Mucous membranes are moist. Cardiovascular: Regular rate and rhythm. Lungs: Breathing comfortably. Abdomen: Soft, nontender, nondistended. Rectal: Rectal exam was about to be performed when the patient reported that she had to go to the bathroom. She subsequently had a small to medium amount of dark red blood. No tarry melenic appearing stool. Rectal exam therefore deferred. Extremities: No significant edema. Neurologic: A and O x3. DIAGNOSTIC STUDIES/LAB DATA: White count 9.1 on admission, now 6.7. Hemoglobin 10.3 on admission, now 7. Platelet count initially 255 down to 162. Potassium low at 3.1, BUN 24, creatinine 0.74. LFTs normal. Imaging: No recent imaging this admission. No prior endoscopy on record. IMPRESSION AND RECOMMENDATION: Ms. Stanley is an 82-year-old woman with a history of hypertension, hyperlipidemia, hiatal hernia, arthritis, prediabetes, diastolic dysfunction, and remote history of rectal bleeding felt to be diverticular in nature, who presents with bloody stools x1 day. Ms. Stanley was initially tachycardic in the ER, which has resolved after fluids. She remains hemodynamically stable. She denies any upper GI symptoms or syncope. No reported history of melena nor is there melena on exam. Stool is grossly bloody with dark red blood. Labs notable for acute drop in Hct, although labs were stable on repeat this AM. Presentation not consistent with brisk upper GI bleed at this point given her clinical stability and absence of syncope or melena. Suspect lower GI bleed with most likely etiology being diverticular bleed. Differential also does include other lower GI sources of bleeding including AVMs or large masses or polyps, although these are felt to be less likely. The natural history of diverticular bleeding is that very often these bleeding episodes will resolve spontaneously (>75% of the time). 1. Continue to monitor CBC. Consider transfusion given hematocrit at borderline level. 2. Recommend starting Golytely prep to help flush the colon. If bleeding has in fact stopped, then we can discuss role of colonoscopy to evaluate for diverticular disease or any other source of bleeding. The patient indicates that she may elect not to pursue a colonoscopy if she the bleeding resolves, particularly given her advanced age. Alternatively, if the patient continues to bleed despite flushing the colon, then a colonoscopy could potentially be performed tomorrow. 3. Clear diet without red liquids today. Thank you for this consult. GI will continue to follow. [id number]/[facility] #: [id number] YULISA
[2018-03-04] MEDS: Potassium Chlor TAB* 20 MEQ TAB.ER PO SCH ×2 (16:22→22:42)
--- NOTE | 2018-03-04 19:00 | PN ---
Progress Note - Progress Note Date of Service: 03/04/18 Note: Called to bedside by RN regarding eliz red blood per rectum. Patient awake, mentating appropriately, describes lightheadedness with ambulation. Vitals show HR elevated to 120 but this is consistent with previous values during hospitalization, SBP 140s. 2nd unit PRBCs infusing as well as NS 100 ml/hr. Patient stable to do nuc med tagged red blood cell scan. Dr. Pena updated, suspects diverticular bleed and recommends to continue blood transfusions as needed with plan for colonoscopy in AM. Plan for a third unit PRBC now, recheck H/H at completion. Will continue to monitor closely and transfer to ICU if needed overnight.
[2018-03-04 22:41] LABS: Hematocrit 22 % (35-47); Hemoglobin 7.5 g/dl (12.0-16.0)
[2018-03-05 04:14] LABS: Hematocrit 25 % (35-47); Hemoglobin 8.7 g/dl (12.0-16.0)
[2018-03-05 04:29] LABS: BUN/Creatinine Ratio 39.1 (8-20); EGFR Non-African American 89.1 (>60); Magnesium 1.3 mg/dL (1.9-2.7)
[2018-03-05 04:31] LABS: Calcium 6.4 mg/dL (8.6-10.3)
[2018-03-05] MEDS ORDERED: Magnesium Sulfate 2 GM IV* 2 GM/50 ML BAG IVPB ONE ×2 (05:00→09:08)
[2018-03-05] MEDS ORDERED: Calcium Gluconate INJ* 2 GM in NS 0.9% 100 ML* 100 ML IV ONE (06:00)
[2018-03-05] MEDS: NS 0.9% 1000 ML* 1,000 ML IV SCH ×3 (06:02→23:13)
[2018-03-05] MEDS: Ondansetron INJ* 2 MG/ML VIAL IV PRN ×2 (07:07→16:02)
[2018-03-05] MEDS: Potassium Chlor TAB* 20 MEQ TAB.ER PO SCH ×2 (07:18→20:33)
[2018-03-05] MEDS: KCL 20 MEQ/100 ML IVPREMIX* 20 MEQ/100 ML BAG IV SCH ×4 (09:23→20:31)
[2018-03-05] MEDS: Pantoprazole* 80 mg IN NS 80 MG/250 ML BAG IVPB SCH ×3 (09:27→23:58)
--- NOTE | 2018-03-05 09:52 | PN ---
Progress Note - Progress Note Date of Service: 03/05/18 Note: pt seen and examined; feels well; events of last night noted; bleeding seems to have slowed; some this am in bm; no abd pain, feels better vs yesterday; had similar episode 30 years ago; pt had clears today; only drank 50% of prep and refused any more; 98.4, 108/53, 98%, 84-106 NAD, alert, oriented +Bs, soft abd, nt/nd, no HSM labs: hgb 8.7, s/p 4U, BUN wnl, inr nml tagged rbc scan: cecum 82 yo female with rectal bleeding; concern for LGI bleed; required 4U; tagged RBC lit up in cecum; pt refusing any further golytley; long d/w pt re: cause of bleeding, avm, tics, polyp, mass; discussed reason for colonoscopy and prep; pt more understanding; agree to further prep and colonoscopy tomorrow at 10am; must be good prep or can't do procedure Franklin Pena MD
[2018-03-05] MEDS ORDERED: KCL 20 MEQ/100 ML IVPREMIX* 20 MEQ/100 ML BAG IV SCH (10:00)
[2018-03-05] MEDS ORDERED: Calcium Gluconate INJ* 1 GM in NS 0.9% 50 ML* 50 ML IVPB ONE (15:57)
[2018-03-05 16:03] LABS: ABS Basophils 0 10^3/ul (0-0.2); ABS Eosinophils 0 10^3/ul (0-0.6); ABS Lymphocytes 2.2 10^3/ul (1.0-4.8); ABS Neutrophils 7.7 10^3/ul (1.5-7.7); ABS Nucleated RBC 0 10^3/ul; Eosinophil % 0.2 % (0-6); Hematocrit 19 % (35-47); Hemoglobin 6.6 g/dl (12.0-16.0); Lymphocyte % 20.2 % (25-47); Mean Corpuscular HGB Conc 35 g/dl (31-36); Mean Corpuscular Hemoglobin 33 pg (27-31); Mean Corpuscular Volume 94 fL (80-97); Mean Platelet Volume 8.3 fL (7.4-10.4); Nucleated Red Blood Cells % 0.1; Platelet Count 123 10^3/ul (150-450); Red Blood Count 2.03 10^6/ul (4.00-5.40); Red Cell Distribution Width 14 % (10.5-15); White Blood Count 10.9 10^3/ul (3.5-10.8)
--- NOTE | 2018-03-05 16:12 | PN ---
Subjective Date of Service: 03/05/18 Interval History: CAT call around 345 or so fell in the bathroom hitting lip and has some slight blood at nostril. 2 cups of blood in BM approximated by RN. HR to 140s. Stat CBC, BMP, LA ordered. 1 u pRBC orderd stat, until above return 500cc NS fluid bolus requested 16 gauge IV access (currently 20 and 22g) telemetry added prepping for colonoscopy for AM. some transient Nausea, no vomiting says she did not see GI as outpatient for her very large hiatal hernia. Hgb returned at 6.6 down from 8.7. will transfer to ICU and order 2 additional stat units for total of 3 now. Family History: Unchanged from Admission Social History: Unchanged from Admission Past Medical History: Unchanged from Admission Objective Active Medications: Al Hydrox/Mg Hydrox/Simethicone (Maalox Plus*) 30 ml PO Q6H PRN PRN Reason: INDIGESTION Sodium Chloride (Ns 0.9% 1000 Ml*) 1,000 mls @ 125 mls/hr IV PER RATE [facility] Last Admin: 03/05/18 14:38 Dose: 125 mls/hr Pantoprazole Sodium (Protonix Iv Bag*) 80 mg in 250 mls @ 25 mls/hr IVPB Q10H [facility] Last Admin: 03/05/18 09:27 Dose: 25 mls/hr Calcium Gluconate 1 gm/ Sodium (Chloride) 60 mls @ 60 mls/hr IVPB ONCE ONE Stop: 03/05/18 16:56 Ondansetron HCl (Zofran Inj*) 4 mg IV Q4H PRN PRN Reason: NAUSEA/VOMITING Last Admin: 03/05/18 16:02 Dose: 4 mg Polyethylene Glycol/Electrolytes (Golytely*) 4,000 ml PO ONCE ONE Stop: 03/05/18 17:01 Potassium Chloride (Klor Con Er Tab*) 20 meq PO BID [facility] Last Admin: 03/05/18 07:18 Dose: 20 meq Vital Signs - 8 hr 03/05/18 11:50 Temperature 98.5 F Pulse Rate 101 Respiratory 18 Rate Blood Pressure 126/64 (mmHg) O2 Sat by Pulse 99 Oximetry Oxygen Devices in Use Now: None Appearance: NAD Eyes: No Scleral Icterus, PERRLA Ears/Nose/Mouth/Throat: NL Teeth, Lips, Gums Neck: NL Appearance and Movements; NL JVP, Trachea Midline Respiratory: Symmetrical Chest Expansion and Respiratory Effort, Clear to Auscultation Cardiovascular: NL Sounds; No Murmurs; No JVD, - - tachycardic regular Abdominal: NL Sounds; No Tenderness; No Distention, No Hepatosplenomegaly Extremities: No Edema, No Clubbing, Cyanosis Skin: No Rash or Ulcers, No Nodules or Sclerosis Neurological: Alert and Oriented x 3, NL Sensation, NL Muscle Strength and Tone Nutrition: Taking PO's Result Diagrams: 03/05/18 15:55 03/05/18 15:55 Additional Lab and Data: Laboratory Results - last 24 hr 03/03/18 03/04/18 03/05/18 22:49 22:26 04:02 WBC RBC Hgb 7.5 L Hct 22 L MCV MCH MCHC RDW Plt Count MPV Neut % (Auto) Lymph % (Auto) [place] % (Auto) Eos % (Auto) Baso % (Auto) Absolute Neuts (auto) Absolute Lymphs (auto) Absolute Monos (auto) Absolute Eos (auto) Absolute Basos (auto) Absolute Nucleated RBC Nucleated RBC % Sodium 138 Potassium 3.0 L Chloride 115 H Carbon Dioxide 21 L Anion Gap 2 BUN 25 H Creatinine 0.64 Est GFR ( Amer) 107.8 Est GFR (Non-Af Amer) 89.1 BUN/Creatinine Ratio 39.1 H Glucose 166 H Lactic Acid Calcium 6.4 L* Ionized Calcium Magnesium 1.3 L Blood Type A Positive Antibody Screen Negative Crossmatch See Detail 03/05/18 03/05/18 03/05/18 04:02 11:33 11:46 WBC RBC Hgb 8.7 L Hct 25 L MCV MCH MCHC RDW Plt Count MPV Neut % (Auto) Lymph % (Auto) [place] % (Auto) Eos % (Auto) Baso % (Auto) Absolute Neuts (auto) Absolute Lymphs (auto) Absolute Monos (auto) Absolute Eos (auto) Absolute Basos (auto) Absolute Nucleated RBC Nucleated RBC % Sodium Potassium Chloride Carbon Dioxide Anion Gap BUN Creatinine Est GFR ( Amer) Est GFR (Non-Af Amer) BUN/Creatinine Ratio Glucose Lactic Acid Calcium Ionized Calcium 4.34 L Magnesium 2.3 Blood Type Antibody Screen Crossmatch 11/17/18 11/17/18 11/17/18 15:55 15:55 15:55 WBC 10.9 H RBC 2.03 L Hgb 6.6 L Hct 19 L MCV 94 MCH 33 H MCHC 35 RDW 14 Plt Count 123 L MPV 8.3 Neut % (Auto) 70.4 Lymph % (Auto) 20.2 L [place] % (Auto) 9.0 H Eos % (Auto) 0.2 Baso % (Auto) 0.2 Absolute Neuts (auto) 7.7 Absolute Lymphs (auto) 2.2 Absolute Monos (auto) 1.0 H Absolute Eos (auto) 0 Absolute Basos (auto) 0 Absolute Nucleated RBC 0 Nucleated RBC % 0.1 Sodium 134 L Potassium 3.1 L Chloride 112 H Carbon Dioxide 17 L Anion Gap 5 BUN 21 Creatinine 0.73 Est GFR ( Amer) 92.6 Est GFR (Non-Af Amer) 76.5 BUN/Creatinine Ratio 28.8 H Glucose 210 H Lactic Acid 2.4 H* Calcium 6.8 L Ionized Calcium Magnesium Blood Type Antibody Screen Crossmatch Assess/Plan/Problems-Billing Assessment: Ms. Stanley is an 82yo with PMH of HTN who presented to the ED with c/o bloody stools for one day and was admitted for GI bleed. - Patient Problems (1) Lower GI bleed Current Visit: Yes Status: Acute Code(s): K92.2 - GASTROINTESTINAL HEMORRHAGE, UNSPECIFIED SNOMED Code(s): 48084756 Comment: - patient with another large bloody BM and 2 unit pRBC drop during CAT call. - transferred to ICU - 3u pRBC ordered stat. 200cc/hr. - request two 16 or 18 gauge access in case rapid transfusion needed. - Likely diverticular in nature - cbc q4 for 3x. - Appreciate GI consult; continue golytely - Hold aspirin - protonix gtt. (2) Hiatal hernia Current Visit: Yes Status: Acute Code(s): K44.9 - DIAPHRAGMATIC HERNIA WITHOUT OBSTRUCTION OR GANGRENE SNOMED Code(s): 58061882 Comment: - may be contributing to Nausea. (3) Nausea Current Visit: Yes Status: Acute Code(s): R11.0 - NAUSEA SNOMED Code(s): 876142001 (4) DVT prophylaxis Current Visit: Yes Status: Acute Code(s): KLE1064 - SNOMED Code(s): 461381033 Comment: - SCDs (5) Full code status Current Visit: Yes Status: Acute Code(s): Z78.9 - OTHER SPECIFIED HEALTH STATUS SNOMED Code(s): 281470896 (6) HTN (hypertension) Current Visit: Yes Status: Acute Code(s): I10 - ESSENTIAL (PRIMARY) HYPERTENSION SNOMED Code(s): 72840231 Comment: - Normotensive - Hold losartan and HCTZ (7) Hypokalemia Current Visit: Yes Status: Acute Code(s): E87.6 - HYPOKALEMIA SNOMED Code( s): 71696654 Comment: Mag then K repalcement, goal >4. (8) Hypocalcemia Current Visit: Yes Status: Acute Code(s): E83.51 - HYPOCALCEMIA SNOMED Code(s): 7673693 Comment: calcium gluconate (9) Hypomagnesemia Current Visit: Yes Status: Acute Code(s): E83.42 - HYPOMAGNESEMIA SNOMED Code(s): 213762268 Status and Disposition: medicine inpatient.
[2018-03-05 16:21] LABS: BUN/Creatinine Ratio 28.8 (8-20); Calcium 6.8 mg/dL (8.6-10.3); EGFR Non-African American 76.5 (>60); Potassium 3.1 mmol/L (3.5-5.0)
[2018-03-05] MEDS ORDERED: PEG 3000 GI LAVAGE* 1 GALLON PO ONE (17:00)
[2018-03-05] MEDS ORDERED: NS 0.9% 50 ML* 50 ML ONE (18:16)
[2018-03-05] MEDS ORDERED: Furosemide IV* 10 MG/ML 2 ML VIAL (20 MG) IV ONE ×2 (18:30→19:00)
[2018-03-05 22:49] LABS: Hematocrit 24 % (35-47); Hemoglobin 8.4 g/dl (12.0-16.0); Mean Corpuscular HGB Conc 35 g/dl (31-36); Mean Corpuscular Hemoglobin 31 pg (27-31); Mean Corpuscular Volume 89 fL (80-97); Red Cell Distribution Width 15 % (10.5-15); White Blood Count 10.7 10^3/ul (3.5-10.8)
[2018-03-05 22:50] LABS: ABS Basophils 0 10^3/ul (0-0.2); ABS Eosinophils 0 10^3/ul (0-0.6); ABS Monocytes 0.6 10^3/ul (0-0.8); ABS Nucleated RBC 0 10^3/ul; Eosinophil % 0 % (0-6); Lymphocyte % 9.1 % (25-47); Nucleated Red Blood Cells % 0
[2018-03-05 23:12] LABS: Mean Platelet Volume 8.1 fL (7.4-10.4); Platelet Count 89 10^3/ul (150-450)
[2018-03-05 23:16] LABS: Lymphocytes % 9 % (25-47); Monocytes % 2 % (0-7); Myelocytes % 1 % (0-1); Neutrophil % 86 % (38-83)
[2018-03-05 23:18] LABS: ABS Neutrophils 9.5 10^3/ul (1.5-7.7); Immature Granulocytes 3 % (0-9)
[2018-03-05 23:49] LABS: BUN/Creatinine Ratio 26.8 (8-20); EGFR Non-African American 103.9 (>60); Magnesium 1.4 mg/dL (1.9-2.7); Potassium 2.8 mmol/L (3.5-5.0)
[2018-03-05 23:55] LABS: Calcium 5.1 mg/dL (8.6-10.3)
[2018-03-06] MEDS ORDERED: Magnesium Sulfate 2 GM IV* 2 GM/50 ML BAG IVPB ONE (00:30)
[2018-03-06] MEDS: KCL 20 MEQ/100 ML IVPREMIX* 20 MEQ/100 ML BAG IV SCH ×4 (00:52→07:35)
[2018-03-06] MEDS ORDERED: Calcium Gluconate INJ* 2 GM in NS 0.9% 100 ML* 100 ML IV ONE ×2 (01:30→06:00)
[2018-03-06 04:28] LABS: BUN/Creatinine Ratio 26.9 (8-20); EGFR Non-African American 84.5 (>60); Potassium 3.4 mmol/L (3.5-5.0)
[2018-03-06 04:30] LABS: Calcium 6.4 mg/dL (8.6-10.3)
[2018-03-06 04:42] LABS: Magnesium 2.3 mg/dL (1.9-2.7)
[2018-03-06] MEDS: Pantoprazole* 80 mg IN NS 80 MG/250 ML BAG IVPB SCH ×3 (04:52→14:23)
[2018-03-06 05:02] LABS: ABS Basophils 0 10^3/ul (0-0.2); ABS Eosinophils 0 10^3/ul (0-0.6); ABS Lymphocytes 1.5 10^3/ul (1.0-4.8); ABS Monocytes 0.8 10^3/ul (0-0.8); ABS Neutrophils 6.6 10^3/ul (1.5-7.7); ABS Nucleated RBC 0 10^3/ul; Eosinophil % 0.2 % (0-6); Hematocrit 22 % (35-47); Hemoglobin 7.8 g/dl (12.0-16.0); Lymphocyte % 16.5 % (25-47); Mean Corpuscular HGB Conc 35 g/dl (31-36); Mean Corpuscular Hemoglobin 31 pg (27-31); Mean Corpuscular Volume 88 fL (80-97); Mean Platelet Volume 8.4 fL (7.4-10.4); Nucleated Red Blood Cells % 0.1; Platelet Count 95 10^3/ul (150-450); Red Blood Count 2.52 10^6/ul (4.00-5.40); Red Cell Distribution Width 15 % (10.5-15); White Blood Count 8.9 10^3/ul (3.5-10.8)
[2018-03-06] MEDS ORDERED: KCL 20 MEQ/100 ML IVPREMIX* 20 MEQ/100 ML BAG IV SCH (06:00)
[2018-03-06] MEDS: NS 0.9% 1000 ML* 1,000 ML IV SCH (07:02)
[2018-03-06] MEDS: Potassium Chlor TAB* 20 MEQ TAB.ER PO SCH ×2 (07:35→21:05)
[2018-03-06 08:57] LABS: Albumin 2.2 g/dL (3.2-5.2); Albumin/Globulin Ratio 1.8 (1-3); BUN/Creatinine Ratio 22.1 (8-20); Calcium 7.1 mg/dL (8.6-10.3); Globulin 1.2 g/dL (2-4); Potassium 3.7 mmol/L (3.5-5.0); Total Bilirubin 0.5 mg/dL (0.2-1.0); Total Protein 3.4 g/dL (6.4-8.9)
[2018-03-06] MEDS ORDERED: Midazolam* 1 MG/ML 10 ML VIAL (10 MG) ONE (09:36)
[2018-03-06] MEDS ORDERED: fentaNYL* 50 MCG/ML 2 ML VIAL (100 MCG VIAL) ONE (09:36)
--- NOTE | 2018-03-06 10:28 | PN ---
Subjective Date of Service: 03/06/18 Interval History: 2u pRBC, improvement from 6.6 to 8.4. 3rd held. down to 7.8 in AM hypokalemic, hypocalcemic, hypomag ~1000cc bowel movement with some reported blood clots but mostly brown. tolerated prep about to get colonoscopy HR improved, currently 90s. BP stable. 18, 20,22g access currently. ... colonscopy showed severe diverticulosis, no clear active bleeding. transferred to the floor. Family History: Unchanged from Admission Social History: Unchanged from Admission Past Medical History: Unchanged from Admission Objective Active Medications: Al Hydrox/Mg Hydrox/Simethicone (Maalox Plus*) 30 ml PO Q6H PRN PRN Reason: INDIGESTION Sodium Chloride (Ns 0.9% 1000 Ml*) 1,000 mls @ 125 mls/hr IV PER RATE [facility] Last Admin: 03/06/18 07:02 Dose: 125 mls/hr Pantoprazole Sodium (Protonix Iv Bag*) 80 mg in 250 mls @ 25 mls/hr IVPB Q10H [facility] Last Admin: 03/06/18 09:53 Dose: 25 mls/hr Ondansetron HCl (Zofran Inj*) 4 mg IV Q4H PRN PRN Reason: NAUSEA/VOMITING Last Admin: 03/05/18 16:02 Dose: 4 mg Potassium Chloride (Klor Con Er Tab*) 20 meq PO BID [facility] Last Admin: 03/06/18 07:35 Dose: 20 meq Vital Signs - 8 hr 03/06/18 03/06/18 03/06/18 02:30 02:45 03:00 Temperature 98.1 F 98.1 F 98.4 F Pulse Rate 106 103 103 Respiratory 17 15 16 Rate Blood Pressure 124/71 130/68 121/66 (mmHg) O2 Sat by Pulse 96 98 97 Oximetry 03/06/18 03/06/18 03/06/18 03:01 03:15 03:30 Temperature 98.4 F 98.2 F 98.2 F Pulse Rate 104 99 98 Respiratory 16 15 16 Rate Blood Pressure 121/66 121/69 (mmHg) O2 Sat by Pulse 94 98 95 Oximetry 03/06/18 03/06/18 03/06/18 03:45 04:00 04:01 Temperature 98.2 F 98.2 F 98.2 F Pulse Rate 97 95 100 Respiratory 17 18 17 Rate Blood Pressure 140/64 121/68 (mmHg) O2 Sat by Pulse 97 97 98 Oximetry 03/06/18 03/06/18 03/06/18 04:30 04:45 05:00 Temperature 98.4 F 98.4 F Pulse Rate 104 102 101 Respiratory 6 10 18 Rate Blood Pressure 127/67 131/80 138/73 (mmHg) O2 Sat by Pulse 96 97 97 Oximetry 03/06/18 03/06/18 03/06/18 05:01 05:15 05:30 Temperature 98.4 F 98.2 F 98.4 F Pulse Rate 102 101 106 Respiratory 8 19 18 Rate Blood Pressure 133/66 126/77 (mmHg) O2 Sat by Pulse 96 99 97 Oximetry 03/06/18 03/06/18 03/06/18 05:45 05:51 06:00 Temperature 98.4 F 98.4 F Pulse Rate 96 Respiratory 15 12 13 Rate Blood Pressure 140/63 127/62 (mmHg) O2 Sat by Pulse 96 Oximetry 03/06/18 03/06/18 03/06/18 06:01 06:15 06:30 Temperature 98.4 F 98.4 F 98.1 F Pulse Rate 97 97 90 Respiratory 21 22 23 Rate Blood Pressure 138/70 142/80 (mmHg) O2 Sat by Pulse 94 98 99 Oximetry 03/06/18 03/06/18 03/06/18 06:45 07:00 07:01 Temperature 98.1 F 98.1 F 98.1 F Pulse Rate 100 93 101 Respiratory 28 17 29 Rate Blood Pressure 144/66 145/76 (mmHg) O2 Sat by Pulse 99 97 98 Oximetry 03/06/18 03/06/18 03/06/18 07:15 07:30 07:45 Temperature 98.2 F 98.4 F 98.2 F Pulse Rate 89 97 93 Respiratory 15 18 16 Rate Blood Pressure 142/72 128/86 143/72 (mmHg) O2 Sat by Pulse 96 98 96 Oximetry 03/06/18 03/06/18 03/06/18 08:00 08:01 08:15 Temperature 98.2 F 98.2 F 98.4 F Pulse Rate 92 94 100 Respiratory 20 16 20 Rate Blood Pressure 138/72 143/79 (mmHg) O2 Sat by Pulse 97 98 96 Oximetry 03/06/18 03/06/18 03/06/18 08:30 08:45 09:00 Temperature 98.4 F 98.4 F 98.4 F Pulse Rate 99 101 108 Respiratory 19 19 27 Rate Blood Pressure 137/63 136/56 (mmHg) O2 Sat by Pulse 97 98 97 Oximetry 03/06/18 03/06/18 03/06/18 09:01 09:30 09:45 Temperature 98.4 F Pulse Rate 104 104 106 Respiratory 20 21 21 Rate Blood Pressure 142/67 138/65 132/72 (mmHg) O2 Sat by Pulse 97 98 92 Oximetry 03/06/18 10:00 Temperature 98.4 F Pulse Rate 108 Respiratory 20 Rate Blood Pressure 129/84 (mmHg) O2 Sat by Pulse 98 Oximetry Oxygen Devices in Use Now: None Appearance: NAD Eyes: No Scleral Icterus, PERRLA Ears/Nose/Mouth/Throat: NL Teeth, Lips, Gums Neck: NL Appearance and Movements; NL JVP Respiratory: Symmetrical Chest Expansion and Respiratory Effort, Clear to Auscultation Cardiovascular: NL Sounds; No Murmurs; No JVD, RRR Abdominal: NL Sounds; No Tenderness; No Distention Extremities: No Edema, - - infiltrated IVs, edema in left arm > right Skin: No Rash or Ulcers, No Nodules or Sclerosis Neurological: Alert and Oriented x 3, NL Sensation, NL Muscle Strength and Tone Nutrition: Taking PO's Result Diagrams: 03/06/18 14:15 03/06/18 08:15 Additional Lab and Data: Laboratory Results - last 24 hr 03/03/18 03/05/18 03/05/18 22:49 22:40 22:40 WBC 10.7 RBC 2.70 L Hgb 8.4 L Hct 24 L MCV 89 MCH 31 MCHC 35 RDW 15 Plt Count 89 L MPV 8.1 Neut % (Auto) 84.9 H Lymph % (Auto) 9.1 L [place] % (Auto) 5.8 Eos % (Auto) 0 Baso % (Auto) 0.2 Absolute Neuts (auto) 9.0 H Absolute Lymphs (auto) 1.0 Absolute Monos (auto) 0.6 Absolute Eos (auto) 0 Absolute Basos (auto) 0 Absolute Nucleated RBC 0 Immature Gran % 3 Neutrophils % 86 H Band Neutrophils % 2 Lymphocytes % 9 L Monocytes % 2 Myelocytes % 1 Promyelocytes % Desk Attendant Nucleated RBC % 0 Abs Neuts (Manual) 9.5 H Abs Lymphs (Manual) 1.0 Abs Monocytes (Manual) 0.2 Normal RBC Morphology Normal Sodium Cancelled Potassium Cancelled Chloride Cancelled Carbon Dioxide Cancelled Anion Gap Cancelled BUN Cancelled Creatinine Cancelled Est GFR ( Amer) Cancelled Est GFR (Non-Af Amer) Cancelled BUN/Creatinine Ratio Cancelled Glucose Cancelled Calcium Cancelled Ionized Calcium Magnesium Cancelled Total Bilirubin AST ALT Alkaline Phosphatase Total Protein Albumin Globulin Albumin/Globulin Ratio Blood Type A Positive Antibody Screen Negative Crossmatch See Detail 03/05/18 03/06/18 03/06/18 23:25 04:00 04:45 WBC 8.9 RBC 2.52 L Hgb 7.8 L Hct 22 L MCV 88 MCH 31 MCHC 35 RDW 15 Plt Count 95 L MPV 8.4 Neut % (Auto) 74.5 Lymph % (Auto) 16.5 L [place] % (Auto) 8.5 H Eos % (Auto) 0.2 Baso % (Auto) 0.3 Absolute Neuts (auto) 6.6 Absolute Lymphs (auto) 1.5 Absolute Monos (auto) 0.8 Absolute Eos (auto) 0 Absolute Basos (auto) 0 Absolute Nucleated RBC 0 Immature Gran % Neutrophils % Band Neutrophils % Lymphocytes % Monocytes % Myelocytes % Promyelocytes % Nucleated RBC % 0.1 Abs Neuts (Manual) Abs Lymphs (Manual) Abs Monocytes (Manual) Normal RBC Morphology Sodium 138 139 Potassium 2.8 L 3.4 L Chloride 120 H 116 H Carbon Dioxide 16 L 20 L Anion Gap 2 3 BUN 15 18 Creatinine 0.56 0.67 Est GFR ( Amer) 125.7 102.2 Est GFR (Non-Af Amer) 103.9 84.5 BUN/Creatinine Ratio 26.8 H 26.9 H Glucose 159 H 145 H Calcium 5.1 L* 6.4 L* Ionized Calcium Magnesium 1.4 L 2.3 Total Bilirubin AST ALT Alkaline Phosphatase Total Protein Albumin Globulin Albumin/Globulin Ratio Blood Type Antibody Screen Crossmatch 03/06/18 03/06/18 03/06/18 05:25 08:15 08:15 WBC RBC Hgb Hct MCV MCH MCHC RDW Plt Count MPV Neut % (Auto) Lymph % (Auto) [place] % (Auto) Eos % (Auto) Baso % (Auto) Absolute Neuts (auto) Absolute Lymphs (auto) Absolute Monos (auto) Absolute Eos (auto) Absolute Basos (auto) Absolute Nucleated RBC Immature Gran % Neutrophils % Band Neutrophils % Lymphocytes % Monocytes % Myelocytes % Promyelocytes % Nucleated RBC % Abs Neuts (Manual) Abs Lymphs (Manual) Abs Monocytes (Manual) Normal RBC Morphology Sodium 139 Potassium 3.7 Chloride 116 H Carbon Dioxide 18 L Anion Gap 5 BUN 15 Creatinine 0.68 Est GFR ( Amer) 100.5 Est GFR (Non-Af Amer) 83.0 BUN/Creatinine Ratio 22.1 H Glucose 129 H Calcium 7.1 L Ionized Calcium 3.99 L 4.42 L Magnesium Total Bilirubin 0.50 AST 14 ALT 9 Alkaline Phosphatase 30 L Total Protein 3.4 L Albumin 2.2 L Globulin 1.2 L Albumin/Globulin Ratio 1.8 Blood Type Antibody Screen Crossmatch 03/06/18 14:15 WBC RBC Hgb 7.4 L Hct 21 L MCV MCH MCHC RDW Plt Count MPV Neut % (Auto) Lymph % (Auto) [place] % (Auto) Eos % (Auto) Baso % (Auto) Absolute Neuts (auto) Absolute Lymphs (auto) Absolute Monos (auto) Absolute Eos (auto) Absolute Basos (auto) Absolute Nucleated RBC Immature Gran % Neutrophils % Band Neutrophils % Lymphocytes % Monocytes % Myelocytes % Promyelocytes % Nucleated RBC % Abs Neuts (Manual) Abs Lymphs (Manual) Abs Monocytes (Manual) Normal RBC Morphology Sodium Potassium Chloride Carbon Dioxide Anion Gap BUN Creatinine Est GFR ( Amer) Est GFR (Non-Af Amer) BUN/Creatinine Ratio Glucose Calcium Ionized Calcium Magnesium Total Bilirubin AST ALT Alkaline Phosphatase Total Protein Albumin Globulin Albumin/Globulin Ratio Blood Type Antibody Screen Crossmatch Assess/Plan/Problems-Billing Assessment: Ms. Stanley is an 82yo with PMH of HTN who presented to the ED with c/o bloody stools for one day and was admitted for GI bleed. s/p colonoscopy with severe diverticulosis. - Patient Problems (1) Lower GI bleed Current Visit: Yes Status: Acute Code(s): K92.2 - GASTROINTESTINAL HEMORRHAGE, UNSPECIFIED SNOMED Code(s): 29400470 Comment: - got total of 7u pRBC this admission. - s/p colonoscopy 03/06 with severe diverticulosis but no active bleeding. - protonix to po - Hold aspirin - cbc at 0600 (2) Hiatal hernia Current Visit: Yes Status: Acute Code(s): K44.9 - DIAPHRAGMATIC HERNIA WITHOUT OBSTRUCTION OR GANGRENE SNOMED Code(s): 97177564 Comment: - may be contributing to Nausea. Discussed with Dr. Pena and plan to defer evaluation to outpatient. (3) Nausea Current Visit: Yes Status: Acute Code(s): R11.0 - NAUSEA SNOMED Code(s): 792846500 Comment: zofran prn (4) DVT prophylaxis Current Visit: Yes Status: Acute Code(s): ACI2429 - SNOMED Code(s): 597423826 Comment: - SCDs (5) Full code status Current Visit: Yes Status: Acute Code(s): Z78.9 - OTHER SPECIFIED HEALTH STATUS SNOMED Code(s): 651504671 (6) HTN (hypertension) Current Visit: Yes Status: Acute Code(s): I10 - ESSENTIAL (PRIMARY) HYPERTENSION SNOMED Code(s): 92757305 Comment: - Normotensive - Hold losartan and HCTZ (7) Hypokalemia Current Visit: Yes Status: Acute Code(s): E87.6 - HYPOKALEMIA SNOMED Code( s): 11205700 Comment: replete Mag >2, K >4. (8) Hypocalcemia Current Visit: Yes Status: Acute Code(s): E83.51 - HYPOCALCEMIA SNOMED Code(s): 3121411 Comment: calcium gluconate prn iCa improved. check 0600 (9) Hypomagnesemia Current Visit: Yes Status: Acute Code(s): E83.42 - HYPOMAGNESEMIA SNOMED Code(s): 931670247 Comment: Replete Mg>2 Status and Disposition: medicine inpatient. Transfer back to floor.
[2018-03-06 14:26] LABS: Hematocrit 21 % (35-47); Hemoglobin 7.4 g/dl (12.0-16.0)
--- NOTE | 2018-03-06 22:48 | PRO ---
DATE OF PROCEDURE: 03/06/18 - ROOM #450 PROCEDURE: Colonoscopy. INDICATION: Hematochezia. REFERRING PHYSICIAN: MEDICATIONS GIVEN: 100 mcg IV fentanyl, 8 mg IV Versed. DESCRIPTION OF PROCEDURE: After the colonoscopy procedure including the risks, benefits, and alternatives not limited to perforation, surgery, and/or were explained to the patient, written consent was then obtained, IV medication was given, and the procedure was performed in the intensive care unit. An Olympus colonoscope was then inserted into the patient's rectum and advanced to the cecum. Careful and thorough inspection within the cecum did not reveal any abnormalities. The appendiceal orifice was identified. Quality of the preparation was fair to good on the left side and fair to poor on the right side. Lesions very well could have been missed, especially on the right side due to the prep. I did not see any AVMs, but again, with the prep quality, these easily could have been obscured. This also was a very difficult colonoscopy. The patient has no tone to her colon; it was very loopy, it did require nurses to provide external hand support. It took greater than 1 hour. She did have very severe diverticulosis throughout the entirety of the colon, it was definitely worse on the left versus the right side of the colon. No active bleeding was seen anywhere in her colon. She did have a polyp at 40 cm from the anal verge, it was removed using jumbo biopsy forceps. Adequate hemostasis was achieved and specimen was retrieved. Other than the diverticulosis, no other abnormalities were seen. Slow pull-through through the anal canal was unremarkable. Scope was withdrawn from the patient. She tolerated the procedure well and was returned to the care of the ICU staff in stable condition. IMPRESSION: 1. Complete colonoscopy into the cecum with biopsy polypectomy. 2. Single colon polyp, status post biopsy polypectomy. 3. Severe diverticulosis, the most likely cause for her rectal bleeding. 4. No active bleeding was seen. I would recommend that we start to advance her diet and monitor her stools very carefully for further rectal bleeding. [id number]/[facility] #: [id number] [facility] HOSPITALHenry
[2018-03-07 06:42] LABS: ABS Basophils 0 10^3/ul (0-0.2); ABS Eosinophils 0.1 10^3/ul (0-0.6); ABS Lymphocytes 1.2 10^3/ul (1.0-4.8); ABS Monocytes 0.7 10^3/ul (0-0.8); ABS Nucleated RBC 0 10^3/ul; Eosinophil % 1.3 % (0-6); Hematocrit 19 % (35-47); Hemoglobin 6.6 g/dl (12.0-16.0); Lymphocyte % 13.9 % (25-47); Mean Corpuscular HGB Conc 36 g/dl (31-36); Mean Corpuscular Hemoglobin 32 pg (27-31); Mean Corpuscular Volume 90 fL (80-97); Mean Platelet Volume 7.7 fL (7.4-10.4); Nucleated Red Blood Cells % 0.3; Platelet Count 117 10^3/ul (150-450); Red Blood Count 2.07 10^6/ul (4.00-5.40); Red Cell Distribution Width 16 % (10.5-15)
[2018-03-07 07:06] LABS: BUN/Creatinine Ratio 17.2 (8-20); Calcium 6.8 mg/dL (8.6-10.3); EGFR Non-African American 99.8 (>60); Magnesium 1.6 mg/dL (1.9-2.7); Potassium 3.4 mmol/L (3.5-5.0)
[2018-03-07] MEDS: Omeprazole CAP* 20 MG PO SCH (08:11)
[2018-03-07] MEDS: Potassium Chlor TAB* 20 MEQ TAB.ER PO SCH ×2 (08:12→20:34)
[2018-03-07 12:32] LABS: Hematocrit 25 % (35-47); Hemoglobin 8.3 g/dl (12.0-16.0)
[2018-03-07] MEDS ORDERED: fentaNYL* 50 MCG/ML 2 ML VIAL (100 MCG VIAL) ONE (13:19)
[2018-03-07] MEDS ORDERED: Midazolam* 1 MG/ML 10 ML VIAL (10 MG) ONE (13:19)
--- NOTE | 2018-03-07 19:19 | PN ---
Subjective Date of Service: 03/07/18 Interval History: more bloody BM this AM, Hgb to 6.6, transfused 1u EGD performed this afternoon. no active bleeding. hgb increment to 8.3 (though of note maybe drawn maybe a bit too quickly after transfusion ended) no abdominal pain, nausea, SOB, CP Family History: Unchanged from Admission Social History: Unchanged from Admission Past Medical History: Unchanged from Admission Objective Active Medications: Al Hydrox/Mg Hydrox/Simethicone (Maalox Plus*) 30 ml PO Q6H PRN PRN Reason: INDIGESTION Omeprazole (Prilosec Cap*) 40 mg PO DAILY [facility] Last Admin: 03/07/18 08:11 Dose: 40 mg Ondansetron HCl (Zofran Inj*) 4 mg IV Q4H PRN PRN Reason: NAUSEA/VOMITING Last Admin: 03/05/18 16:02 Dose: 4 mg Potassium Chloride (Klor Con Er Tab*) 20 meq PO BID [facility] Last Admin: 03/07/18 08:12 Dose: 20 meq Vital Signs - 8 hr 03/07/18 03/07/18 03/07/18 11:55 15:05 15:53 Temperature 98.6 F 98.9 F 98.2 F Pulse Rate 116 124 115 Respiratory 18 14 24 Rate Blood Pressure 122/60 145/70 128/56 (mmHg) O2 Sat by Pulse 97 94 98 Oximetry Oxygen Devices in Use Now: None Appearance: NAD Eyes: No Scleral Icterus, PERRLA Ears/Nose/Mouth/Throat: NL Teeth, Lips, Gums Neck: NL Appearance and Movements; NL JVP, Trachea Midline Respiratory: Symmetrical Chest Expansion and Respiratory Effort, Clear to Auscultation Cardiovascular: NL Sounds; No Murmurs; No JVD, RRR Abdominal: NL Sounds; No Tenderness; No Distention, No Hepatosplenomegaly Extremities: No Edema, No Clubbing, Cyanosis Skin: No Rash or Ulcers Neurological: Alert and Oriented x 3, NL Sensation, NL Muscle Strength and Tone Nutrition: Taking PO's Result Diagrams: 03/07/18 12:10 03/07/18 06:27 Additional Lab and Data: Laboratory Results - last 24 hr 03/03/18 03/05/18 03/07/18 22:49 22:40 06:27 WBC 9.0 RBC 2.07 L Hgb 6.6 L Hct 19 L MCV 90 MCH 32 H MCHC 36 RDW 16 H Plt Count 117 L MPV 7.7 Neut % (Auto) 77.1 Lymph % (Auto) 13.9 L [place] % (Auto) 7.3 H Eos % (Auto) 1.3 Baso % (Auto) 0.4 Absolute Neuts (auto) 7.0 Absolute Lymphs (auto) 1.2 Absolute Monos (auto) 0.7 Absolute Eos (auto) 0.1 Absolute Basos (auto) 0 Absolute Nucleated RBC 0 Nucleated RBC % 0.3 Hem Pathologist Commnt Sodium Potassium Chloride Carbon Dioxide Anion Gap BUN Creatinine Est GFR ( Amer) Est GFR (Non-Af Amer) BUN/Creatinine Ratio Glucose Calcium Ionized Calcium Magnesium Blood Type Antibody Screen Crossmatch See Detail 03/07/18 03/07/18 03/07/18 06:27 06:27 06:27 WBC RBC Hgb Hct MCV MCH MCHC RDW Plt Count MPV Neut % (Auto) Lymph % (Auto) [place] % (Auto) Eos % (Auto) Baso % (Auto) Absolute Neuts (auto) Absolute Lymphs (auto) Absolute Monos (auto) Absolute Eos (auto) Absolute Basos (auto) Absolute Nucleated RBC Nucleated RBC % Hem Pathologist Commnt Sodium 139 Potassium 3.4 L Chloride 114 H Carbon Dioxide 21 L Anion Gap 4 BUN 10 Creatinine 0.58 Est GFR ( Amer) 120.7 Est GFR (Non-Af Amer) 99.8 BUN/Creatinine Ratio 17.2 Glucose 108 H Calcium 6.8 L Ionized Calcium 4.23 L Magnesium 1.6 L Blood Type A Positive Antibody Screen Negative Crossmatch See Detail 03/07/18 12:10 WBC RBC Hgb 8.3 L Hct 25 L MCV MCH MCHC RDW Plt Count MPV Neut % (Auto) Lymph % (Auto) [place] % (Auto) Eos % (Auto) Baso % (Auto) Absolute Neuts (auto) Absolute Lymphs (auto) Absolute Monos (auto) Absolute Eos (auto) Absolute Basos (auto) Absolute Nucleated RBC Nucleated RBC % Hem Pathologist Commnt Sodium Potassium Chloride Carbon Dioxide Anion Gap BUN Creatinine Est GFR ( Amer) Est GFR (Non-Af Amer) BUN/Creatinine Ratio Glucose Calcium Ionized Calcium Magnesium Blood Type Antibody Screen Crossmatch Assess/Plan/Problems-Billing Assessment: Ms. Stanley is an 82yo with PMH of HTN, and large hiatal hernia who presented to the ED with c/o bloody stools for one day and was admitted for GI bleed. Bleeding scan with cecum source. s/p colonoscopy with severe diverticulosis. Continued episodes of blood per rectum. Total of 7 U pRBC this admission. - Patient Problems (1) Lower GI bleed Current Visit: Yes Status: Acute Code(s): K92.2 - GASTROINTESTINAL HEMORRHAGE, UNSPECIFIED SNOMED Code(s): 68589409 Comment: - got total of 7u pRBC this admission. - s/p colonoscopy 03/06 with severe diverticulosis but no active bleeding. - s/p EGD 03/07 with e/o of large hiatal hearnia but no reported bleeding source - 40mg protonix po daily - Hold aspirin - cbc at 0600 (2) Hiatal hernia Current Visit: Yes Status: Acute Code(s): K44.9 - DIAPHRAGMATIC HERNIA WITHOUT OBSTRUCTION OR GANGRENE SNOMED Code(s): 51190590 Comment: - may be contributing to Nausea. s/p EGD today (3) Nausea Current Visit: Yes Status: Acute Code(s): R11.0 - NAUSEA SNOMED Code(s): 393538621 Comment: resolved, zofran prn (4) DVT prophylaxis Current Visit: Yes Status: Acute Code(s): PYZ8375 - SNOMED Code(s): 578577928 Comment: - SCDs (5) Full code status Current Visit: Yes Status: Acute Code(s): Z78.9 - OTHER SPECIFIED HEALTH STATUS SNOMED Code(s): 650820573 (6) HTN (hypertension) Current Visit: Yes Status: Acute Code(s): I10 - ESSENTIAL (PRIMARY) HYPERTENSION SNOMED Code(s): 62217071 Comment: - Normotensive - Hold losartan and HCTZ (7) Hypokalemia Current Visit: Yes Status: Acute Code(s): E87.6 - HYPOKALEMIA SNOMED Code( s): 86352991 Comment: replete Mag >2, K >4. (8) Hypocalcemia Current Visit: Yes Status: Acute Code(s): E83.51 - HYPOCALCEMIA SNOMED Code(s): 5327472 Comment: calcium gluconate prn iCa improved. check 0600 (9) Hypomagnesemia Current Visit: Yes Status: Acute Code(s): E83.42 - HYPOMAGNESEMIA SNOMED Code(s): 389776208 Comment: Replete Mg>2 Status and Disposition: medicine inpatient.
[2018-03-08 07:12] LABS: ABS Basophils 0 10^3/ul (0-0.2); ABS Eosinophils 0.1 10^3/ul (0-0.6); ABS Lymphocytes 1.1 10^3/ul (1.0-4.8); ABS Monocytes 0.8 10^3/ul (0-0.8); ABS Neutrophils 10.6 10^3/ul (1.5-7.7); ABS Nucleated RBC 0.1 10^3/ul; Eosinophil % 0.5 % (0-6); Hematocrit 19 % (35-47); Hemoglobin 6.7 g/dl (12.0-16.0); Lymphocyte % 8.8 % (25-47); Mean Corpuscular HGB Conc 34 g/dl (31-36); Mean Corpuscular Hemoglobin 31 pg (27-31); Mean Corpuscular Volume 91 fL (80-97); Mean Platelet Volume 7.8 fL (7.4-10.4); Nucleated Red Blood Cells % 0.4; Platelet Count 156 10^3/ul (150-450); Red Blood Count 2.14 10^6/ul (4.00-5.40); Red Cell Distribution Width 15 % (10.5-15); White Blood Count 12.6 10^3/ul (3.5-10.8)
[2018-03-08 07:25] LABS: BUN/Creatinine Ratio 25.8 (8-20); EGFR Non-African American 92.4 (>60); Magnesium 1.6 mg/dL (1.9-2.7)
[2018-03-08] MEDS: Potassium Chlor TAB* 20 MEQ TAB.ER PO SCH (07:30)
[2018-03-08] MEDS: Omeprazole CAP* 20 MG PO SCH (07:30)
[2018-03-08 07:54] LABS: Potassium 3.5 mmol/L (3.5-5.0)
[2018-03-08] MEDS ORDERED: Magnesium Sulfate IV* 3 GM in NS 0.9% 100 ML* 100 ML IVPB ONE ×2 (08:41→09:04)
[2018-03-08] MEDS ORDERED: Calcium Gluconate INJ* 1 GM in NS 0.9% 50 ML* 50 ML IVPB ONE (08:41)
[2018-03-08] MEDS ORDERED: Furosemide IV* 10 MG/ML 2 ML VIAL (20 MG) IV ONE ×3 (09:06→15:00)
--- NOTE | 2018-03-08 09:34 | PRO ---
PROCEDURE REPORT: DATE OF PROCEDURE: 03/07/18 PROCEDURE: EGD. INDICATION: Persistent anemia requiring blood transfusions, negative colonoscopy yesterday. MEDICATIONS GIVEN: 1. 25 mcg IV Fentanyl. 2. 4 mg IV Versed. DESCRIPTION OF PROCEDURE: After the EGD procedure including the risks, benefits, and alternatives no t limited to perforation, surgery, and/or were explained to Mrs. Stanley, written consent was then obtained. IV medication was given, and a bite block was placed between the teeth. An Olympus g astroscope was then inserted into the patient's mouth, advanced down the esophagus, into the stomach, and into the beginning of the duodenum. In the esophagus, the patient does have venous blebs. No o vert varices were seen in the distal esophagus. The scope advanced through the GE junction into the body of the stomach. The patient has a very large hiatal hernia. It was somewhat difficult, but I w as able to tease the scope down into the antrum and just through the pylorus into the duodenal bulb. Biopsy was obtained for H. Pylori. The scope was then withdrawn from the patient. She tolerated the procedure well and was returned to the hospital room in stable condition. IMPRESSION: 1. Complete upper endoscopy into the duodenum with biopsies. 2. Very large hiatal hernia. 3. No overt bleeding sources. 4. Over the past hour or 2, the patient has unfortunately started bleeding again. She has had a coup le of bowel movements with bright red blood. It is extremely bright and makes me think of a left-fariba ed bleed. Her vitals signs were stable. Less likely right-sided bleed. I think if she continues to bleed, we may need to repeat tagged RBC scan. The patient did have severe diverticulosis on the left side of her colon yesterday. We will continue to follow along closely. [id number]/[facility] #: [id number]
--- NOTE | 2018-03-08 14:12 | PN ---
Subjective Date of Service: 03/08/18 Interval History: Pt c/o large bloody BM's today-2x so far. Also very SOB and arm and leg edema seen with daughters Family History: Unchanged from Admission Social History: Unchanged from Admission Past Medical History: Unchanged from Admission Objective Active Medications: Al Hydrox/Mg Hydrox/Simethicone (Maalox Plus*) 30 ml PO Q6H PRN PRN Reason: INDIGESTION Omeprazole (Prilosec Cap*) 40 mg PO DAILY [facility] Last Admin: 03/08/18 07:30 Dose: 40 mg Ondansetron HCl (Zofran Inj*) 4 mg IV Q4H PRN PRN Reason: NAUSEA/VOMITING Last Admin: 03/05/18 16:02 Dose: 4 mg Pantoprazole Sodium (Protonix Iv*) 40 mg IV DAILY [facility] Potassium Chloride (Klor Con Er Tab*) 20 meq PO BID [facility] Last Admin: 03/08/18 07:30 Dose: 20 meq Vital Signs - 8 hr 03/08/18 03/08/18 07:35 07:52 Temperature 98.1 F Pulse Rate 121 Respiratory 18 18 Rate Blood Pressure 124/58 (mmHg) O2 Sat by Pulse 99 Oximetry Oxygen Devices in Use Now: None Appearance: 82 yo F, mildly anxious in NAD, AAOx3 Eyes: No Scleral Icterus, PERRLA Ears/Nose/Mouth/Throat: NL Teeth, Lips, Gums Neck: NL Appearance and Movements; NL JVP, Trachea Midline Respiratory: Symmetrical Chest Expansion and Respiratory Effort, - - rales b/l bases Cardiovascular: NL Sounds; No Murmurs; No JVD, RRR Abdominal: NL Sounds; No Tenderness; No Distention, No Hepatosplenomegaly Extremities: No Clubbing, Cyanosis, - - noted b/l pedal and hand edema Skin: No Rash or Ulcers, No Nodules or Sclerosis Neurological: Alert and Oriented x 3, NL Muscle Strength and Tone Result Diagrams: 03/08/18 07:00 03/08/18 07:00 Additional Lab and Data: Laboratory Results - last 24 hr 03/03/18 03/05/18 03/07/18 22:49 22:40 06:27 WBC 9.0 RBC 2.07 L Hgb 6.6 L Hct 19 L MCV 90 MCH 32 H MCHC 36 RDW 16 H Plt Count 117 L MPV 7.7 Neut % (Auto) 77.1 Lymph % (Auto) 13.9 L [place] % (Auto) 7.3 H Eos % (Auto) 1.3 Baso % (Auto) 0.4 Absolute Neuts (auto) 7.0 Absolute Lymphs (auto) 1.2 Absolute Monos (auto) 0.7 Absolute Eos (auto) 0.1 Absolute Basos (auto) 0 Absolute Nucleated RBC 0 Nucleated RBC % 0.3 Hem Pathologist Commnt Sodium Potassium Chloride Carbon Dioxide Anion Gap BUN Creatinine Est GFR ( Amer) Est GFR (Non-Af Amer) BUN/Creatinine Ratio Glucose Calcium Ionized Calcium Magnesium Blood Type Antibody Screen Crossmatch See Detail 03/07/18 03/07/18 03/07/18 06:27 06:27 06:27 WBC RBC Hgb Hct MCV MCH MCHC RDW Plt Count MPV Neut % (Auto) Lymph % (Auto) [place] % (Auto) Eos % (Auto) Baso % (Auto) Absolute Neuts (auto) Absolute Lymphs (auto) Absolute Monos (auto) Absolute Eos (auto) Absolute Basos (auto) Absolute Nucleated RBC Nucleated RBC % Hem Pathologist Commnt Sodium 139 Potassium 3.4 L Chloride 114 H Carbon Dioxide 21 L Anion Gap 4 BUN 10 Creatinine 0.58 Est GFR ( Amer) 120.7 Est GFR (Non-Af Amer) 99.8 BUN/Creatinine Ratio 17.2 Glucose 108 H Calcium 6.8 L Ionized Calcium 4.23 L Magnesium 1.6 L Blood Type A Positive Antibody Screen Negative Crossmatch See Detail 03/07/18 12:10 WBC RBC Hgb 8.3 L Hct 25 L MCV MCH MCHC RDW Plt Count MPV Neut % (Auto) Lymph % (Auto) [place] % (Auto) Eos % (Auto) Baso % (Auto) Absolute Neuts (auto) Absolute Lymphs (auto) Absolute Monos (auto) Absolute Eos (auto) Absolute Basos (auto) Absolute Nucleated RBC Nucleated RBC % Hem Pathologist Commnt Sodium Potassium Chloride Carbon Dioxide Anion Gap BUN Creatinine Est GFR ( Amer) Est GFR (Non-Af Amer) BUN/Creatinine Ratio Glucose Calcium Ionized Calcium Magnesium Blood Type Antibody Screen Crossmatch Microbiology and Other Data: Microbiology 03/07/18 14:27 CLOtest - Final Gastric Antrum Assess/Plan/Problems-Billing Assessment: Ms. Stanley is an 82yo with PMH of HTN, and large hiatal hernia who presented to the ED with c/o bloody stools for one day and was admitted for GI bleed. Bleeding scan with cecum source. s/p colonoscopy with severe diverticulosis. Continued episodes of blood per rectum. Total of 7 U pRBC this admission. - Patient Problems (1) Lower GI bleed Comment: - got total of 7u pRBC this admission. Will transfuse another U today - s/p colonoscopy 03/06 with severe diverticulosis on L but no active bleeding. - s/p EGD 03/07 with e/o of large hiatal hearnia but no reported bleeding source - 40mg protonix po daily - Hold aspirin - d/w Shaji Fuentes and Abebe. Will get CTA bad to r/o bleed and surgical consult was placed (2) HTN (hypertension) Comment: - Normotensive - Hold losartan and HCTZ (3) Hypomagnesemia Comment: Replete Mg>2 (4) Fluid overload due to blood transfusion Comment: significant edema and now problems with dyspnea due to fluid overload. Tx with Lasix 40 mg IV x1. NPO but no IV fluids due to fluid overload (5) DVT prophylaxis Comment: - SCDs Status and Disposition: medicine inpatient.
[2018-03-08] MEDS ORDERED: Iohexol 350* (CONTRAST) 500 ML MDV IV ONE (14:58)
[2018-03-08] MEDS ORDERED: Etomidate* 2 MG/ML 10 ML VIAL ONE (15:18)
[2018-03-08] MEDS ORDERED: Lidocaine 2% PF * 5 ML VIAL ONE ×2 (15:18→15:59)
[2018-03-08] MEDS ORDERED: Succinylcholine* 20 MG/ML 10 ML VIAL ONE (15:18)
--- NOTE | 2018-03-08 15:19 | CONSULT ---
Consult Consult: CC: lower GI bleed HPI: This is an 82 yo F with a h/o HTN. She presented to [facility] on 03/03/18 with 1 day of tarry stools and then BRBPR. She had 9 BMs reported. She was tachycardic at the time of presentation and her H/H was 10/30. She was admitted to Hospitalist service and GI was consulted. Hb was down to 7 the next morning and she was transfused. She had additional episodes of BPR prompting a Bleeding Scan on 03/04/18. This was positive for bleeding in the cecum. Colonoscopy was performed and this showed no active bleeding but prep was poor in the right colon. She continued to bleed and had EGD done the next day which showed a large HH but no bleeding noted. To this point the patient has received [address] Burnett called as the patient has continued to bleed and is tachycardic in the 120's. She has concern for fluid overload and the patient received Lasix for this. The patient and her daughter were interviewed. The patient has some nausea and is anxious as she continues to bleed. She complains of extreme thirst. PMH:HTN, pre diabetes, h/o gi bleed, hyperlipidemia, hiatal hernia, osteoarthritis, diastolic dysfunction PSH: inguinal hernia Meds: Active Medications Generic Name Dose Route Start Last Admin Trade Name Freq PRN Reason Stop Dose Admin Al Hydrox/Mg Hydrox/Simethicone 30 ml 03/04/18 00:15 Maalox Plus* PO Q6H PRN INDIGESTION Ondansetron HCl 4 mg 03/04/18 00:15 03/05/18 16:02 Zofran Inj* IV 4 mg Q4H PRN Administration NAUSEA/VOMITING Pantoprazole Sodium 40 mg 03/09/18 09:00 Protonix Iv* IV DAILY [facility] NKDA SH:lives alone; no tob; occas EtOH PE: Vital Signs Temp 98.1 F 03/08/18 07:52 Pulse 121 03/08/18 07:52 Resp 18 03/08/18 07:52 BP 124/58 03/08/18 07:52 Pulse Ox 99 03/08/18 07:52 Gen: NAD Abd: soft, ND, NT, no visible scars. Intake & Output 03/07/18 03/08/18 03/08/18 18:59 06:59 18:59 Intake Total 368 120 240 Output Total 960 510 Balance -592 -390 240 Intake: IV Fluids 248 Blood 248 Oral 120 120 240 Output: Urine 960 Darby 510 Other: Estimated Void Medium # Bowel Movements 1 Estimated Stool Amount Medium # Voids 4 Laboratory Results - last 24 hr 03/07/18 03/08/18 03/08/18 06:27 07:00 07:00 WBC 12.6 H RBC 2.14 L Hgb 6.7 L Hct 19 L MCV 91 MCH 31 MCHC 34 RDW 15 Plt Count 156 MPV 7.8 Neut % (Auto) 84.4 H Lymph % (Auto) 8.8 L [place] % (Auto) 6.2 Eos % (Auto) 0.5 Baso % (Auto) 0.1 Absolute Neuts (auto) 10.6 H Absolute Lymphs (auto) 1.1 Absolute Monos (auto) 0.8 Absolute Eos (auto) 0.1 Absolute Basos (auto) 0 Absolute Nucleated RBC 0.1 Nucleated RBC % 0.4 Sodium 138 Potassium 3.5 Chloride 112 H Carbon Dioxide 18 L Anion Gap 8 BUN 16 Creatinine 0.62 Est GFR ( Amer) 111.8 Est GFR (Non-Af Amer) 92.4 BUN/Creatinine Ratio 25.8 H Glucose 113 H Calcium 7.0 L Ionized Calcium Magnesium 1.6 L 25-OH Vitamin D Total 10.0 L PTH Intact Calcium (PTH Intact) Blood Type A Positive Antibody Screen Negative Crossmatch See Detail 03/08/18 03/08/18 07:00 07:00 WBC RBC Hgb Hct MCV MCH MCHC RDW Plt Count MPV Neut % (Auto) Lymph % (Auto) [place] % (Auto) Eos % (Auto) Baso % (Auto) Absolute Neuts (auto) Absolute Lymphs (auto) Absolute Monos (auto) Absolute Eos (auto) Absolute Basos (auto) Absolute Nucleated RBC Nucleated RBC % Sodium Potassium Chloride Carbon Dioxide Anion Gap BUN Creatinine Est GFR ( Amer) Est GFR (Non-Af Amer) BUN/Creatinine Ratio Glucose Calcium Ionized Calcium 4.30 L Magnesium 25-OH Vitamin D Total PTH Intact 6.5 Calcium (PTH Intact) 7.2 L Blood Type Antibody Screen Crossmatch Bleeding scan images reviewed. Uptake in cecum. Endoscopy reports reviewed and discussed with Dr. Pena (notable for findings above and pandiverticulosis and there was no obvious AVMs and he feel this bleeding pattern is atypical for AVM and likely this is a diverticular bleed) Imp:82 yo F with R colon LGIB. She continues to bleed after 9 u PRBCs and unsuccessful colonoscopy. Plan/Recommendations: At this point, the options are: to try to reprep her for repeat colonoscopy, to transfer her for possible IR intervention, or to proceed to OR for Right colectomy, which I have offered. I discussed the findings with the patient, her daughter. After review of the options, risks, benefits and alternatives, she agrees to surgery. Risks were explained including, not limited to: bleeding, infection, pain, scarring, blood clot, pneumonia, hernia, alteration in bowel habits, visceral injury, anastamotic leak, N/V, risks of GETA and potential need for other procedures/ surgeries. She had an opportunity to ask questions and all questions were answered. She stated understanding and agreed to proceed. She will remain NPO. Additional PRBCs ordered by Hospitalist. Likely to be in ICU for postop given concern for fluid overload and possible need for ventilator.
[2018-03-08] MEDS ORDERED: Sodium Citrate/Citric Acid* 15 ML UDC ONE (15:56)
[2018-03-08] MEDS ORDERED: Ertapenem* 1 GM in NS 0.9% 50 ML* 50 ML IVPB ONE (16:00)
[2018-03-08] MEDS ORDERED: fentaNYL* 50 MCG/ML 5 ML VIAL (250 MCG VIAL) ONE (16:01)
[2018-03-08] MEDS ORDERED: Rocuronium* 10 MG/ML VIAL ONE (16:55)
[2018-03-08] MEDS ORDERED: DiMENhydriNATE IV* 50 MG/ML VIAL IV PUSH PRN (17:27)
[2018-03-08] MEDS ORDERED: Naloxone* 0.4 MG/ML 1 ML VIAL IV PRN (17:27)
[2018-03-08] MEDS ORDERED: Phenylephrine IV* 40 MCG/ML 10 ML SYRINGE ONE (17:29)
[2018-03-08] MEDS ORDERED: Phenylephrine INJ* 10 MG/ML 1 ML VIAL (10 MG) ONE (17:29)
[2018-03-08] MEDS ORDERED: fentaNYL* 50 MCG/ML 2 ML VIAL (100 MCG VIAL) ONE (17:29)
[2018-03-08 17:41] LABS: Hematocrit 27 % (35-47); Hemoglobin 9.4 g/dl (12.0-16.0)
[2018-03-08] MEDS ORDERED: Sugammadex * 200 MG/2 ML VIAL IV PUSH ONE (17:47)
[2018-03-08] MEDS ORDERED: Ondansetron INJ* 2 MG/ML VIAL ONE (17:56)
[2018-03-08] MEDS ORDERED: Bupivacaine 0.5% W/EPI SDV* 30 ML VIAL ONE (18:08)
--- NOTE | 2018-03-08 18:34 | OP ---
Operative Report - Blank - Operative Report Date of Operation: 03/08/18 Note: Brief Operative Note Preop Dx: Right colon GI bleeding Postop Dx: same Procedure: Laparotomy; Right colectomy Anesthesia: GET Surgeon: [employer] Architect: MONTY Chahal Fluids: 1200 ml crystalloid EBL: < 50 ml Specimen: right colon Drains: none Findings: dictated
[2018-03-08] MEDS ORDERED: Morphine VIAL* 4 MG/ML VIAL (1 ml vial) ONE ×3 (18:43→20:37)
[2018-03-08] MEDS ORDERED: DiMENhydriNATE IV* 50 MG/ML VIAL ONE (18:46)
[2018-03-08] MEDS: Morphine VIAL* 4 MG/ML VIAL (1 ml vial) IV PRN ×5 (18:58→20:37)
[2018-03-08] MEDS ORDERED: PROCHLORPERAZINE INJ 5 MG/ML 2 ML VIAL ONE (19:05)
[2018-03-08] MEDS ORDERED: PROCHLORPERAZINE INJ 5 MG/ML 2 ML VIAL IV ONE (19:06)
[2018-03-08] MEDS ORDERED: Scopolamine 1.5 mg* PATCH ONE (19:06)
[2018-03-08] MEDS ORDERED: Scopolamine 1.5 mg* PATCH TRANSDERM SCH (20:00)
[2018-03-08] MEDS ORDERED: HYDROmorphone INJ1* 1 MG/ML SYRINGE ONE (21:36)
[2018-03-08] MEDS: HYDROmorphone INJ1* 1 MG/ML SYRINGE IV PRN (21:40)
[2018-03-08] MEDS ORDERED: Acetaminophen TAB* 325 MG PO PRN (21:44)
[2018-03-08] MEDS ORDERED: HYDROmorphone INJ1* 1 MG/ML SYRINGE IV PRN (21:47)
[2018-03-08] MEDS: LR IV SCH (22:16)
[2018-03-08] MEDS: Heparin VIAL(*) 5000 UNITS/ML VIAL (FIVE THOUSAND) SUBCUT SCH (22:16)
[2018-03-08] MEDS ORDERED: NS 0.9% 1000 ML* 1,000 ML IV ONE (22:36)
[2018-03-09] MEDS: NS 0.9% 1000 ML* 1,000 ML IV ONE ×2 (00:03→00:13)
[2018-03-09] MEDS ORDERED: NS 0.9% 1000 ML* 1,000 ML IV ONE (01:01)
[2018-03-09] MEDS ORDERED: Furosemide IV* 10 MG/ML 2 ML VIAL (20 MG) IV ONE (02:00)
[2018-03-09 04:17] LABS: ABS Basophils 0.1 10^3/ul (0-0.2); ABS Eosinophils 0 10^3/ul (0-0.6); ABS Monocytes 1.1 10^3/ul (0-0.8); ABS Nucleated RBC 0.1 10^3/ul; Eosinophil % 0.1 % (0-6); Hematocrit 25 % (35-47); Hemoglobin 8.2 g/dl (12.0-16.0); Lymphocyte % 5.5 % (25-47); Mean Corpuscular HGB Conc 33 g/dl (31-36); Mean Corpuscular Hemoglobin 30 pg (27-31); Mean Corpuscular Volume 92 fL (80-97); Nucleated Red Blood Cells % 0.8; Platelet Count 197 10^3/ul (150-450); Red Blood Count 2.71 10^6/ul (4.00-5.40); Red Cell Distribution Width 16 % (10.5-15); White Blood Count 18.2 10^3/ul (3.5-10.8)
[2018-03-09 04:33] LABS: Albumin 2.2 g/dL (3.2-5.2); Albumin/Globulin Ratio 1.5 (1-3); BUN/Creatinine Ratio 23.1 (8-20); Calcium 6.7 mg/dL (8.6-10.3); EGFR Non-African American 70.9 (>60); Globulin 1.5 g/dL (2-4); Magnesium 1.7 mg/dL (1.9-2.7); Phosphorus 3.4 mg/dL (2.5-5.0); Potassium 3.6 mmol/L (3.5-5.0); Total Bilirubin 0.6 mg/dL (0.2-1.0); Total Protein 3.7 g/dL (6.4-8.9)
--- NOTE | 2018-03-09 05:59 | PN ---
Hospitalist Progress Note Date of Service: 03/09/18 got called due to drop of sbp ---> pt got bolus of 750 cc bolus then her urine output was dropping ---> bolus one liter ns followed by lasix 10 mg ivp ---> urine output finally stablized with 255 cc from 2 am to now. stat lab sent at 4 am showed wbc went upwards ---> she only got one dose of abx during surgery currently not on any abx ---> two sets of blood culture ordered followed by zobenjaminn ordered
[2018-03-09] MEDS: Piperacillin/Tazobac ADVAN(*) 3.375 GM in NS 0.9% 100 ML* 100 ML IVPB SCH ×3 (06:35→21:47)
[2018-03-09] MEDS ORDERED: Magnesium Sulfate IV* 3 GM in NS 0.9% 100 ML* 100 ML IVPB ONE (08:13)
[2018-03-09] MEDS ORDERED: Calcium Gluconate INJ* 2 GM in NS 0.9% 100 ML* 100 ML IV ONE (08:16)
[2018-03-09] MEDS ORDERED: NS 0.9% 100 ML* 100 ML ONE (08:51)
[2018-03-09] MEDS: Pantoprazole IV* 40 MG IV SCH (08:58)
[2018-03-09] MEDS: Heparin VIAL(*) 5000 UNITS/ML VIAL (FIVE THOUSAND) SUBCUT SCH ×2 (08:58→21:45)
[2018-03-09] MEDS ORDERED: Diltiazem IV* 5 MG/ML 5 ML VIAL (for loading dose/IV Push) (25 MG) IV SLOW PU ONE (09:02)
[2018-03-09] MEDS ORDERED: Diltiazem IV* 5 MG/ML 5 ML VIAL (for loading dose/IV Push) (25 MG) ONE (09:10)
[2018-03-09] MEDS ORDERED: Metoprolol Tartrate IV* 1 MG/ML 5 ML VIAL IV PRN (09:49)
--- NOTE | 2018-03-09 10:02 | PN ---
Subjective Date of Service: 03/09/18 Interval History: Pt continues to be tachycardic since last night. Breathing "not the best", but not worse since yesterday. Abd hurts when she coughs. no BM, no flatus Family History: Unchanged from Admission Social History: Unchanged from Admission Past Medical History: Unchanged from Admission Objective Active Medications: Acetaminophen (Tylenol Tab*) 650 mg PO Q4H PRN PRN Reason: PAIN MILD Al Hydrox/Mg Hydrox/Simethicone (Maalox Plus*) 30 ml PO Q6H PRN PRN Reason: INDIGESTION Heparin Sodium (Porcine) (Heparin Vial(*)) 5,000 units SUBCUT Q12HR [facility] Last Admin: 03/09/18 08:58 Dose: 5,000 units Hydromorphone HCl (Dilaudid Inj1s*) 0.5 mg IV Q3H PRN PRN Reason: PAIN MODERATE Last Admin: 03/08/18 21:40 Dose: 0.5 mg Hydromorphone HCl (Dilaudid Inj1s*) 1 mg IV Q3H PRN PRN Reason: PAIN MODERATE TO SEVERE Last Admin: 03/09/18 06:35 Dose: 0.5 mg Lactated Ringer's (Lactated Ringers 1000 Ml Bag*) 1,000 mls @ 75 mls/hr IV PER RATE [facility] Last Admin: 03/08/18 22:16 Dose: 75 mls/hr Piperacillin Sod/Tazobactam (Sod 3.375 gm/ Sodium Chloride) 100 mls @ 25 mls/ hr IVPB Q8H [facility] Last Admin: 03/09/18 06:35 Dose: 25 mls/hr Magnesium Sulfate 3 gm/ Sodium (Chloride) 106 mls @ 53 mls/hr IVPB ONCE ONE Stop: 03/09/18 10:12 Last Admin: 03/09/18 08:58 Dose: 53 mls/hr Calcium Gluconate 2 gm/ Sodium (Chloride) 120 mls @ 60 mls/hr IV ONCE ONE Stop: 03/09/18 10:15 Last Admin: 03/09/18 08:58 Dose: 60 mls/hr Metoprolol Tartrate (Lopressor Iv*) 5 mg IV Q4H PRN PRN Reason: BLOOD PRESSURE Ondansetron HCl (Zofran Inj*) 4 mg IV Q4H PRN PRN Reason: NAUSEA/VOMITING Last Admin: 03/05/18 16:02 Dose: 4 mg Pantoprazole Sodium (Protonix Iv*) 40 mg IV DAILY [facility] Last Admin: 03/09/18 08:58 Dose: 40 mg Pharmacy Profile Note (Scopolamine Patch Remove*) 1 note PATCH OFF .AFTER 72 HOURS [facility] Vital Signs - 8 hr 03/09/18 03/09/18 03/09/18 02:00 02:01 03:00 Temperature 99.7 F 99.7 F 100.0 F Pulse Rate 123 123 126 Respiratory 17 15 23 Rate Blood Pressure 133/64 125/62 (mmHg) O2 Sat by Pulse 100 100 98 Oximetry 03/09/18 03/09/18 03/09/18 03:01 04:00 04:01 Temperature 100.0 F 100.2 F 100.0 F Pulse Rate 126 126 127 Respiratory 19 23 23 Rate Blood Pressure 91/67 (mmHg) O2 Sat by Pulse 98 97 97 Oximetry 03/09/18 03/09/18 03/09/18 05:00 05:01 06:00 Temperature 100.0 F 100.0 F 100.2 F Pulse Rate 125 125 124 Respiratory 17 16 17 Rate Blood Pressure 106/62 92/59 (mmHg) O2 Sat by Pulse 98 97 97 Oximetry 03/09/18 03/09/18 03/09/18 06:01 06:35 06:43 Temperature 100.0 F 100.2 F Pulse Rate 125 128 Respiratory 17 22 19 Rate Blood Pressure 93/54 (mmHg) O2 Sat by Pulse 97 97 Oximetry 03/09/18 03/09/18 07:00 07:01 Temperature 100.2 F 100.0 F Pulse Rate 127 126 Respiratory 17 18 Rate Blood Pressure 105/56 (mmHg) O2 Sat by Pulse 97 97 Oximetry Oxygen Devices in Use Now: Nasal Cannula Appearance: 82 yo F in nAD, aAOx3 Eyes: No Scleral Icterus, PERRLA Ears/Nose/Mouth/Throat: NL Teeth, Lips, Gums, Mucous Membranes Moist Neck: NL Appearance and Movements; NL JVP, Trachea Midline Respiratory: Symmetrical Chest Expansion and Respiratory Effort, - - decreased Cardiovascular: NL Sounds; No Murmurs; No JVD, RRR, - - tachy, during Cardizem dose of 10 mg IV pt's HR decreased minmally, pt continued to be in sinus tachy Abdominal: - - midline incision covered with dressings, BS +, minimal post op tenderness-diffuse, no rebound, no guarding Lymphatic: No Cervical Adenopathy Extremities: No Clubbing, Cyanosis, - - diffuse hand and feet edema b/l Skin: No Nodules or Sclerosis Neurological: Alert and Oriented x 3, NL Muscle Strength and Tone Result Diagrams: 03/09/18 04:00 03/09/18 04:00 Additional Lab and Data: Laboratory Results - last 24 hr 03/03/18 03/05/18 03/07/18 22:49 22:40 06:27 WBC 9.0 RBC 2.07 L Hgb 6.6 L Hct 19 L MCV 90 MCH 32 H MCHC 36 RDW 16 H Plt Count 117 L MPV 7.7 Neut % (Auto) 77.1 Lymph % (Auto) 13.9 L [place] % (Auto) 7.3 H Eos % (Auto) 1.3 Baso % (Auto) 0.4 Absolute Neuts (auto) 7.0 Absolute Lymphs (auto) 1.2 Absolute Monos (auto) 0.7 Absolute Eos (auto) 0.1 Absolute Basos (auto) 0 Absolute Nucleated RBC 0 Nucleated RBC % 0.3 Hem Pathologist Commnt Sodium Potassium Chloride Carbon Dioxide Anion Gap BUN Creatinine Est GFR ( Amer) Est GFR (Non-Af Amer) BUN/Creatinine Ratio Glucose Calcium Ionized Calcium Magnesium Blood Type Antibody Screen Crossmatch See Detail 03/07/18 03/07/18 03/07/18 06:27 06:27 06:27 WBC RBC Hgb Hct MCV MCH MCHC RDW Plt Count MPV Neut % (Auto) Lymph % (Auto) [place] % (Auto) Eos % (Auto) Baso % (Auto) Absolute Neuts (auto) Absolute Lymphs (auto) Absolute Monos (auto) Absolute Eos (auto) Absolute Basos (auto) Absolute Nucleated RBC Nucleated RBC % Hem Pathologist Commnt Sodium 139 Potassium 3.4 L Chloride 114 H Carbon Dioxide 21 L Anion Gap 4 BUN 10 Creatinine 0.58 Est GFR ( Amer) 120.7 Est GFR (Non-Af Amer) 99.8 BUN/Creatinine Ratio 17.2 Glucose 108 H Calcium 6.8 L Ionized Calcium 4.23 L Magnesium 1.6 L Blood Type A Positive Antibody Screen Negative Crossmatch See Detail 03/07/18 12:10 WBC RBC Hgb 8.3 L Hct 25 L MCV MCH MCHC RDW Plt Count MPV Neut % (Auto) Lymph % (Auto) [place] % (Auto) Eos % (Auto) Baso % (Auto) Absolute Neuts (auto) Absolute Lymphs (auto) Absolute Monos (auto) Absolute Eos (auto) Absolute Basos (auto) Absolute Nucleated RBC Nucleated RBC % Hem Pathologist Commnt Sodium Potassium Chloride Carbon Dioxide Anion Gap BUN Creatinine Est GFR ( Amer) Est GFR (Non-Af Amer) BUN/Creatinine Ratio Glucose Calcium Ionized Calcium Magnesium Blood Type Antibody Screen Crossmatch Microbiology and Other Data: Microbiology 03/07/18 14:27 CLOtest - Final Gastric Antrum Assess/Plan/Problems-Billing Assessment: Ms. Stanley is an 82yo with PMH of HTN, and large hiatal hernia who presented to the ED with c/o bloody stools for one day and was admitted for GI bleed. Bleeding scan with cecum source. s/p colonoscopy with severe diverticulosis. Continued episodes of blood per rectum. Total of 7 U pRBC this admission. - Patient Problems (1) Lower GI bleed Comment: - got total of 9 u pRBC this admission.Hb so far holding up - s/p colonoscopy 03/06 with severe diverticulosis on L but no active bleeding. - s/p EGD 03/07 with e/o of large hiatal hearnia but no reported bleeding source - s/p ex lap on 03/08/18 and excision of cecum by Dr. Lomas, post op in ICU (2) HTN (hypertension) Comment: - Normotensive - Hold losartan and HCTZ (3) Hypomagnesemia Comment: Replete Mg>2 (4) Fluid overload due to blood transfusion Comment: significant edema and now problems with dyspnea due to fluid overload. Tx with Lasix 40 mg IV x1 on 03/08/18. Hold off diuretics for now. CXR shows large hiatal hernia-stable (5) Tachycardia Comment: not in a.fib, but in sinus tachy-likley response to post op and anemia will start lopressor IV with hold parameters (6) Sepsis Comment: meets SIRS with leukocytosis and tachy will cont Zosyn started on 03/09/18 for now, although suspect SIRS is due to post op response and not acute infection (7) DVT prophylaxis Comment: HSQ Status and Disposition: medicine inpatient.
[2018-03-09] MEDS ORDERED: Albumin Human 25%* 25 GM/100 ML BTL IV ONE (14:00)
--- NOTE | 2018-03-09 14:42 | OP ---
CC: Franklin Pena MD; Анна Caputo MD * DATE OF OPERATION: 03/08/18 - ROOM #ICU-06 DATE OF : 37 SURGEON: Justice Lomas MD AMORTIZATION SCHEDULE CLERK: MONTY Buckley ANESTHESIOLOGIST: Gamaliel Hdz MD ANESTHESIA: General endotracheal. PRE-OP DIAGNOSIS: Right colon lower gastrointestinal bleed. POST-OP DIAGNOSIS: Right colon lower gastrointestinal bleed. OPERATIVE PROCEDURE: Right colectomy. ESTIMATED BLOOD LOSS: Less than 50 mL. IV FLUIDS: 1.2 L crystalloid and 1 unit PRBCs. SPECIMEN: Right colon. DRAINS: None. COMPLICATIONS: None. COUNTS: Instrument, needle, and sponge counts were correct. DESCRIPTION OF PROCEDURE: The patient was brought to the operating room and placed on the table supine. Sequential compression devices were placed on both lower extremities. General anesthesia was administered. A-line was placed by Dr. Hdz. Her abdomen was prepped and draped in the usual sterile fashion. She did receive appropriate intravenous antibiotics and time-out was performed. A midline laparotomy was undertaken extending above and below the umbilicus by about 5 cm. The peritoneal cavity was entered at the infraumbilical site and the incision was extended along the length of the skin, incision slightly under cutting. There was some bloody ascites within the peritoneal cavity, small amount. The small bowel and sigmoid colon were eviscerated and the moist laps were used to protect the bowel. Dissection proceeded on the right side freeing the cecum from the lateral attachments to the peritoneum using combination of cautery, sharp and blunt dissection, and LigaSure. The cecum and terminal ileum were mobilized to the midline in this fashion and the dissection proceeded distally freeing the attachments to the ascending colon at the hepatic flexure with identification and preservation of the duodenum. The middle colic vessels were identified. Clear space was identified in the transverse mesocolon and this was opened. Using combination of LigaSure and Sammi clamps, the mesentery was incrementally divided from the terminal ileum to the middle colic vessels and then a [id number] functional end-to-end ileocolonic anastomosis was created with the COLLIN 80 stapler with the anastomosis being performed in the Arnie technique with the second fraying of the COLLIN closing enterotomy and dividing the specimen from the anastomosis. The specimen was submitted to Pathology. Anastomosis was inspected and noted to be widely patent. The anastomosis was reinforced with two sutures of 3-0 silk at the crotch of the anastomosis and the end of the anastomosis was oversewn with 3-0 PDS. The mesenteric defect was then closed with 3-0 silk in interrupted fashion. The bowel was returned to the abdominal cavity and exploration then performed. There were no abnormalities palpable within the left to right lobe of the liver. The gallbladder appeared normal. There were no palpable abnormalities within the pelvis. There was a small uterus with fibroids. Both left and right adnexa appeared normal. No palpable abnormalities within the sigmoid or descending colon or remaining transverse colon. Hemostasis was assured. Lavage of the abdomen was performed until clear. The omentum was then drawn beneath the wound, which was closed with #1 Vicryl running. Skin incision was irrigated and closed with yvonne. 0.5% Marcaine with epinephrine was infiltrated into the subcutaneous tissues of the abdominal wall and deeper into the musculature in order to assist in postoperative pain management. An island dressing was applied over the wound. The patient subsequently was extubated uneventfully. She was transferred to the recovery in stable condition. [id number]/[facility] #: [id number] YULISA
[2018-03-09] MEDS: HYDROmorphone INJ1* 1 MG/ML SYRINGE IV PRN (15:40)
--- NOTE | 2018-03-09 17:40 | PN ---
Date of Service: 03/09/18 Critical Care Services: 82 yo female who underwent right colectomy for diverticular bleeding yesterday, and has had problems with intermittently low urinew output postoperatively, which has not responded to fluids or diiuretics. Overall, patient is about 11 liters positive over past week. Vital Signs: Temp Pulse Resp BP SpO2 FiO2 99.9 F 98 16 99/59 97 Physical Exam: Gen:Alert, oriented, appears comfortable Lungs:Clear Extremities: 3+edema Fluid Balance (Past 24 Hours): 03/07/18 03/08/18 03/09/18 03/10/18 06:59 06:59 06:59 06:59 Intake Total 2310 488 4603 1105 Output Total 2095 1470 1240 342 Balance 215 -982 3363 763 Intake: IV Fluids 9950 553 2924 564 ABX - ZOSYN 31 Blood 248 248 LR 2263 533 NS (0.9%) 1336 IVPB 1772 231 ABX - ZOSYN 127 Albumin 25% 104 LR 0 NS (0.9%) 1772 Medicated IV 354 200 Calcium Gluconate 116 100 GEN - Magnesium 100 GEN - Pantoprazole/ 238 Protonix Oral 620 240 320 110 Output: Urine 960 165 Darby 6042 424 1655 177 Liquid Stool 600 Other: Estimated Void Medium Date of Last Bowel 03/06/18 Movement # Bowel Movements 0 1 Estimated Stool Amount Medium # Voids 4 Labs: Laboratory Results - last 24 hr 03/07/18 03/08/18 03/08/18 06:27 17:35 21:27 WBC RBC Hgb 9.4 L Hct 27 L MCV MCH MCHC RDW Plt Count MPV Neut % (Auto) Lymph % (Auto) [place] % (Auto) Eos % (Auto) Baso % (Auto) Absolute Neuts (auto) Absolute Lymphs (auto) Absolute Monos (auto) Absolute Eos (auto) Absolute Basos (auto) Absolute Nucleated RBC Nucleated RBC % Sodium Potassium Chloride Carbon Dioxide Anion Gap BUN Creatinine Est GFR ( Amer) Est GFR (Non-Af Amer) BUN/Creatinine Ratio Glucose POC Glucose (mg/dL) 198 H Lactic Acid Calcium Ionized Calcium Phosphorus Magnesium Total Bilirubin AST ALT Alkaline Phosphatase B-Natriuretic Peptide Total Protein Albumin Globulin Albumin/Globulin Ratio Blood Type A Positive Antibody Screen Negative Crossmatch See Detail 03/09/18 03/09/1818 04:00 04:00 04:00 WBC 18.2 H RBC 2.71 L Hgb 8.2 L Hct 25 L MCV 92 MCH 30 MCHC 33 RDW 16 H Plt Count 197 MPV 8.0 Neut % (Auto) 87.8 H Lymph % (Auto) 5.5 L [place] % (Auto) 6.2 Eos % (Auto) 0.1 Baso % (Auto) 0.4 Absolute Neuts (auto) 16.0 H Absolute Lymphs (auto) 1.0 Absolute Monos (auto) 1.1 H Absolute Eos (auto) 0 Absolute Basos (auto) 0.1 Absolute Nucleated RBC 0.1 Nucleated RBC % 0.8 Sodium Potassium Chloride Carbon Dioxide Anion Gap BUN Creatinine Est GFR ( Amer) Est GFR (Non-Af Amer) BUN/Creatinine Ratio Glucose POC Glucose (mg/dL) Lactic Acid Calcium Ionized Calcium 4.02 L Phosphorus Magnesium Total Bilirubin AST ALT Alkaline Phosphatase B-Natriuretic Peptide 83 Total Protein Albumin Globulin Albumin/Globulin Ratio Blood Type Antibody Screen Crossmatch 03/09/18 03/09/18 04:00 04:00 WBC RBC Hgb Hct MCV MCH MCHC RDW Plt Count MPV Neut % (Auto) Lymph % (Auto) [place] % (Auto) Eos % (Auto) Baso % (Auto) Absolute Neuts (auto) Absolute Lymphs (auto) Absolute Monos (auto) Absolute Eos (auto) Absolute Basos (auto) Absolute Nucleated RBC Nucleated RBC % Sodium 138 Potassium 3.6 Chloride 112 H Carbon Dioxide 16 L Anion Gap 10 BUN 18 Creatinine 0.78 Est GFR ( Amer) 85.8 Est GFR (Non-Af Amer) 70.9 BUN/Creatinine Ratio 23.1 H Glucose 159 H POC Glucose (mg/dL) Lactic Acid 0.8 Calcium 6.7 L Ionized Calcium Phosphorus 3.4 Magnesium 1.7 L Total Bilirubin 0.60 AST 18 ALT 10 Alkaline Phosphatase 35 B-Natriuretic Peptide Total Protein 3.7 L Albumin 2.2 L Globulin 1.5 L Albumin/Globulin Ratio 1.5 Blood Type Antibody Screen Crossmatch Studies: CXR: Large, left-sided hiatal hernia, but no pulmonary infiltrates. Nutrition: NPO Impression: Patient has moderate dependent edema and a significant positive fluid balance over past few days. (She says her usual weight is 145 lbs and most recent weight here is 176 lbs). Plan: 1. I think the best approach to this is the combination of 25% albumin ( considering the patients hypoalbuminemia) followed by IV furosemide. Critical Care Time: 60 minutes
[2018-03-09] MEDS ORDERED: Furosemide IV* 10 MG/ML VIAL (40 MG) IV ONE (17:49)
[2018-03-10] MEDS: LR IV SCH (01:44)
[2018-03-10] MEDS: Piperacillin/Tazobac ADVAN(*) 3.375 GM in NS 0.9% 100 ML* 100 ML IVPB SCH ×3 (05:34→21:54)
[2018-03-10 05:51] LABS: ABS Basophils 0 10^3/ul (0-0.2); ABS Eosinophils 0 10^3/ul (0-0.6); ABS Lymphocytes 0.6 10^3/ul (1.0-4.8); ABS Monocytes 0.7 10^3/ul (0-0.8); ABS Neutrophils 6.1 10^3/ul (1.5-7.7); ABS Nucleated RBC 0 10^3/ul; Eosinophil % 0.2 % (0-6); Hematocrit 21 % (35-47); Lymphocyte % 8.2 % (25-47); Mean Corpuscular HGB Conc 34 g/dl (31-36); Mean Corpuscular Hemoglobin 31 pg (27-31); Mean Corpuscular Volume 92 fL (80-97); Mean Platelet Volume 7.2 fL (7.4-10.4); Nucleated Red Blood Cells % 0.2; Platelet Count 198 10^3/ul (150-450); Red Blood Count 2.26 10^6/ul (4.00-5.40); Red Cell Distribution Width 17 % (10.5-15); White Blood Count 7.5 10^3/ul (3.5-10.8)
[2018-03-10 06:08] LABS: Calcium 7.2 mg/dL (8.6-10.3); EGFR Non-African American 60.1 (>60); Magnesium 1.9 mg/dL (1.9-2.7); Potassium 2.9 mmol/L (3.5-5.0)
[2018-03-10] MEDS ORDERED: KCL 20 MEQ/100 ML IVPREMIX* 20 MEQ/100 ML BAG ONE (08:06)
[2018-03-10] MEDS: KCL 20 MEQ/100 ML IVPREMIX* 20 MEQ/100 ML BAG IV SCH ×3 (08:16→14:48)
--- NOTE | 2018-03-10 09:34 | PN ---
Progress Note - Progress Note Date of Service: 03/10/18 SOAP: Subjective: Feeling better. No c/o abd pain. C/o KCl burning. No flatus. Objective: Vital Signs Temp 99.3 F 03/10/18 08:01 Pulse 98 03/10/18 08:01 Resp 24 03/10/18 08:01 BP 116/66 03/10/18 08:00 Pulse Ox 91 03/10/18 08:01 Gen: NAD Lungs: decr BS on L base, clear otherwise. Heart: reg Abd: incision c/d/i; no erythema; scant BS; NT Ext: edematous. Intake & Output 03/09/18 03/10/18 03/10/18 18:59 06:59 18:59 Intake Total 1105 1258 Output Total 378 3025 Balance 727 -1767 Intake: IV Fluids 564 1081 ABX - ZOSYN 31 LR 533 1016 NS (0.9%) 65 IVPB 231 177 ABX - ZOSYN 127 177 Albumin 25% 104 Medicated IV 200 Calcium Gluconate 100 GEN - Magnesium 100 Oral 110 Output: Urine 165 Darby 213 3025 Laboratory Results - last 24 hr 03/10/18 03/10/18 05:34 05:34 WBC 7.5 RBC 2.26 L Hgb 7.0 L Hct 21 L MCV 92 MCH 31 MCHC 34 RDW 17 H Plt Count 198 MPV 7.2 L Neut % (Auto) 82.1 Lymph % (Auto) 8.2 L [place] % (Auto) 9.4 H Eos % (Auto) 0.2 Baso % (Auto) 0.1 Absolute Neuts (auto) 6.1 Absolute Lymphs (auto) 0.6 L Absolute Monos (auto) 0.7 Absolute Eos (auto) 0 Absolute Basos (auto) 0 Absolute Nucleated RBC 0 Nucleated RBC % 0.2 Sodium 141 Potassium 2.9 L Chloride 111 Carbon Dioxide 19 L Anion Gap 11 BUN 18 Creatinine 0.90 Est GFR ( Amer) 72.7 Est GFR (Non-Af Amer) 60.1 BUN/Creatinine Ratio 20.0 Glucose 150 H Calcium 7.2 L Magnesium 1.9 Assessment: POD#2 s/p R colectomy for LGIB. Doing well. Anemia reflective of hemodilution and mobilization of fluid. Plan: Clears. Ok to txfr. Monitor H/H. Amb/Pulm toilet. D/w pt and dtr.
[2018-03-10] MEDS: Heparin VIAL(*) 5000 UNITS/ML VIAL (FIVE THOUSAND) SUBCUT SCH ×2 (09:42→20:16)
[2018-03-10] MEDS: Pantoprazole IV* 40 MG IV SCH (09:43)
--- NOTE | 2018-03-10 10:40 | PN ---
Date of Service: 03/10/18 Critical Care Services: Patient had an uneventful evening - has put out 3 liters of urine since Rx with 25% albumin and furosemide. No specific complaints this AM. Vital Signs: Temp Pulse Resp BP SpO2 FiO2 99.3 F 98 24 116/66 91 Physical Exam: Gen:Alert, oriented, comfortable Lungs:Clear Cardiac: Regular tachycardia Abdomen: Positive bowel sounds Extremities: Edema 1-2+ No cyanosis Fluid Balance (Past 24 Hours): 03/09/18 03/10/18 06:59 06:59 Intake Total 4603 2363 Output Total 1240 3403 Balance 3363 -1040 Intake: IV Fluids 2511 1645 ABX - ZOSYN 31 Blood 248 LR 2263 1549 NS (0.9%) 65 IVPB 1772 408 ABX - ZOSYN 304 Albumin 25% 104 LR 0 NS (0.9%) 1772 Medicated IV 200 Calcium Gluconate 100 GEN - Magnesium 100 Oral 320 110 Output: Urine 165 Darby 1240 3238 Other: Estimated Void # Bowel Movements Estimated Stool Amount # Voids Labs: 03/10/18 03/10/18 05:34 05:34 WBC 7.5 RBC 2.26 L Hgb 7.0 L Hct 21 L MCV 92 MCH 31 MCHC 34 RDW 17 H Plt Count 198 MPV 7.2 L Neut % (Auto) 82.1 Lymph % (Auto) 8.2 L [place] % (Auto) 9.4 H Eos % (Auto) 0.2 Baso % (Auto) 0.1 Absolute Neuts (auto) 6.1 Absolute Lymphs (auto) 0.6 L Absolute Monos (auto) 0.7 Absolute Eos (auto) 0 Absolute Basos (auto) 0 Absolute Nucleated RBC 0 Nucleated RBC % 0.2 Sodium 141 Potassium 2.9 L Chloride 111 Carbon Dioxide 19 L Anion Gap 11 BUN 18 Creatinine 0.90 Est GFR ( Amer) 72.7 Est GFR (Non-Af Amer) 60.1 BUN/Creatinine Ratio 20.0 Glucose 150 H Calcium 7.2 L Magnesium 1.9 Studies: None today Nutrition: Ice chips only Impression: Patient is mobilizing third-space fluids, and this is likely contributing to the persistently low hematocrit. Overall, this is a satisfactory postop course. Plan: Will not transfuse at this pont, but will replenish potassium stores. Diet will also be advanced. Patient will be transferred out of ICU today.
--- NOTE | 2018-03-10 11:05 | PN ---
Progress Note - Progress Note Date of Service: 03/10/18 Note: discussed pt's care with Dr. Govea. Dr. Govea will manage pt medically today and beginning tomorrow pt will be on Dr. Lomas' service with hospitalist consult
[2018-03-10] MEDS ORDERED: Lactated Ringers 1000 ML Bag* 1,000 ML IV SCH (12:00)
[2018-03-10] MEDS ORDERED: Furosemide IV* 10 MG/ML VIAL (40 MG) IV ONE ×2 (12:55→19:07)
[2018-03-10] MEDS: Metoprolol Tartrate IV* 1 MG/ML 5 ML VIAL IV SCH ×3 (13:12→20:12)
[2018-03-10] MEDS ORDERED: KCL 20 MEQ/100 ML IVPREMIX* 20 MEQ/100 ML BAG IV ONE (16:00)
[2018-03-10] MEDS: HYDROmorphone INJ1* 1 MG/ML SYRINGE IV PRN (16:33)
[2018-03-10] MEDS ORDERED: Melatonin 3 MG TAB PO PRN (21:00)
[2018-03-11] MEDS: Metoprolol Tartrate IV* 1 MG/ML 5 ML VIAL IV SCH ×5 (00:38→18:39)
[2018-03-11] MEDS: HYDROmorphone INJ1* 1 MG/ML SYRINGE IV PRN ×4 (00:48→18:39)
[2018-03-11] MEDS: Piperacillin/Tazobac ADVAN(*) 3.375 GM in NS 0.9% 100 ML* 100 ML IVPB SCH (05:31)
[2018-03-11 05:44] LABS: ABS Basophils 0 10^3/ul (0-0.2); ABS Eosinophils 0 10^3/ul (0-0.6); ABS Lymphocytes 0.5 10^3/ul (1.0-4.8); ABS Monocytes 0.8 10^3/ul (0-0.8); ABS Neutrophils 4.6 10^3/ul (1.5-7.7); ABS Nucleated RBC 0 10^3/ul; Eosinophil % 0.3 % (0-6); Hematocrit 22 % (35-47); Hemoglobin 7.4 g/dl (12.0-16.0); Lymphocyte % 7.9 % (25-47); Mean Corpuscular HGB Conc 33 g/dl (31-36); Mean Corpuscular Hemoglobin 30 pg (27-31); Mean Corpuscular Volume 92 fL (80-97); Mean Platelet Volume 7.4 fL (7.4-10.4); Nucleated Red Blood Cells % 0.3; Platelet Count 348 10^3/ul (150-450); Red Blood Count 2.44 10^6/ul (4.00-5.40); Red Cell Distribution Width 17 % (10.5-15); White Blood Count 5.9 10^3/ul (3.5-10.8)
[2018-03-11] MEDS ORDERED: Furosemide IV* 10 MG/ML 2 ML VIAL (20 MG) IV ONE (05:58)
[2018-03-11 06:01] LABS: BUN/Creatinine Ratio 18.6 (8-20); Calcium 7.7 mg/dL (8.6-10.3); EGFR Non-African American 55.1 (>60); Magnesium 1.7 mg/dL (1.9-2.7); Potassium 3.4 mmol/L (3.5-5.0)
--- NOTE | 2018-03-11 07:28 | PN ---
Hospitalist Progress Note Date of Service: 03/11/18 pt was found sob with rales one dose of iv lasix 20 given
--- NOTE | 2018-03-11 09:07 | PN ---
Subjective Date of Service: 03/11/18 Interval History: SOB, patient reports since yesterday morning (unclear if this was true onset) +flatus No N/V Only "twinge" abdominal pain events from overnight - lasix for SOB Family History: Unchanged from Admission Social History: Unchanged from Admission Past Medical History: Unchanged from Admission Objective Active Medications: Heparin Sodium (Porcine) (Heparin Vial(*)) 5,000 units SUBCUT Q12HR [facility] Last Admin: 03/10/18 20:16 Dose: 5,000 units Hydromorphone HCl (Dilaudid Inj1s*) 0.5 mg IV Q3H PRN PRN Reason: PAIN MODERATE Last Admin: 03/11/18 05:37 Dose: 0.5 mg Hydromorphone HCl (Dilaudid Inj1s*) 1 mg IV Q3H PRN PRN Reason: PAIN MODERATE TO SEVERE Last Admin: 03/09/18 06:35 Dose: 0.5 mg Piperacillin Sod/Tazobactam (Sod 3.375 gm/ Sodium Chloride) 100 mls @ 25 mls/ hr IVPB Q8H [facility] Last Admin: 03/11/18 05:31 Dose: 25 mls/hr Melatonin (Melatonin) 3 mg PO BEDTIME PRN PRN Reason: INSOMNIA Last Admin: 03/10/18 21:59 Dose: 3 mg Metoprolol Tartrate (Lopressor Iv*) 5 mg IV Q4H [facility] Last Admin: 03/11/18 04:02 Dose: 5 mg Ondansetron HCl (Zofran Inj*) 4 mg IV Q4H PRN PRN Reason: NAUSEA/VOMITING Last Admin: 03/05/18 16:02 Dose: 4 mg Pantoprazole Sodium (Protonix Iv*) 40 mg IV DAILY [facility] Last Admin: 03/10/18 09:43 Dose: 40 mg Pharmacy Profile Note (Scopolamine Patch Remove*) 1 note PATCH OFF .AFTER 72 HOURS [facility] Vital Signs - 8 hr 03/11/18 03/11/18 03/11/18 02:00 04:00 05:37 Temperature 98.5 F Pulse Rate 105 Respiratory 16 16 16 Rate Blood Pressure 135/72 (mmHg) O2 Sat by Pulse 100 Oximetry Oxygen Devices in Use Now: Nasal Cannula Appearance: sitting up in bed, SOB Eyes: No Scleral Icterus, PERRLA Ears/Nose/Mouth/Throat: NL Teeth, Lips, Gums, Clear Oropharnyx Neck: NL Appearance and Movements; NL JVP, Trachea Midline Respiratory: Symmetrical Chest Expansion and Respiratory Effort, - - bowel sounds heard in all left lung resendiz, trace wheeze in right end expiratory Cardiovascular: RRR Abdominal: - - soft, mild TTP, ND Extremities: - - 2+ LE edema Neurological: Alert and Oriented x 3 Result Diagrams: 03/11/18 05:32 03/11/18 05:32 Additional Lab and Data: Laboratory Results - last 24 hr 03/03/18 03/05/18 03/07/18 22:49 22:40 06:27 WBC 9.0 RBC 2.07 L Hgb 6.6 L Hct 19 L MCV 90 MCH 32 H MCHC 36 RDW 16 H Plt Count 117 L MPV 7.7 Neut % (Auto) 77.1 Lymph % (Auto) 13.9 L Leake % (Auto) 7.3 H Eos % (Auto) 1.3 Baso % (Auto) 0.4 Absolute Neuts (auto) 7.0 Absolute Lymphs (auto) 1.2 Absolute Monos (auto) 0.7 Absolute Eos (auto) 0.1 Absolute Basos (auto) 0 Absolute Nucleated RBC 0 Nucleated RBC % 0.3 Hem Pathologist Commnt Sodium Potassium Chloride Carbon Dioxide Anion Gap BUN Creatinine Est GFR ( Amer) Est GFR (Non-Af Amer) BUN/Creatinine Ratio Glucose Calcium Ionized Calcium Magnesium Blood Type Antibody Screen Crossmatch See Detail 03/07/18 03/07/18 03/07/18 06:27 06:27 06:27 WBC RBC Hgb Hct MCV MCH MCHC RDW Plt Count MPV Neut % (Auto) Lymph % (Auto) Leake % (Auto) Eos % (Auto) Baso % (Auto) Absolute Neuts (auto) Absolute Lymphs (auto) Absolute Monos (auto) Absolute Eos (auto) Absolute Basos (auto) Absolute Nucleated RBC Nucleated RBC % Hem Pathologist Commnt Sodium 139 Potassium 3.4 L Chloride 114 H Carbon Dioxide 21 L Anion Gap 4 BUN 10 Creatinine 0.58 Est GFR ( Amer) 120.7 Est GFR (Non-Af Amer) 99.8 BUN/Creatinine Ratio 17.2 Glucose 108 H Calcium 6.8 L Ionized Calcium 4.23 L Magnesium 1.6 L Blood Type A Positive Antibody Screen Negative Crossmatch See Detail 03/07/18 12:10 WBC RBC Hgb 8.3 L Hct 25 L MCV MCH MCHC RDW Plt Count MPV Neut % (Auto) Lymph % (Auto) Leake % (Auto) Eos % (Auto) Baso % (Auto) Absolute Neuts (auto) Absolute Lymphs (auto) Absolute Monos (auto) Absolute Eos (auto) Absolute Basos (auto) Absolute Nucleated RBC Nucleated RBC % Hem Pathologist Commnt Sodium Potassium Chloride Carbon Dioxide Anion Gap BUN Creatinine Est GFR ( Amer) Est GFR (Non-Af Amer) BUN/Creatinine Ratio Glucose Calcium Ionized Calcium Magnesium Blood Type Antibody Screen Crossmatch Microbiology and Other Data: Microbiology 03/07/18 14:27 CLOtest - Final Gastric Antrum Assess/Plan/Problems-Billing Assessment: Ms. Stanley is an 82 yo with PMH of HTN, and large hiatal hernia p/w GIB s/p colonoscopy, bleeding scan, then colectomy for GIB with stay complicated by SOB - Patient Problems (1) Respiratory failure Comment: thought in setting of large amount of colon herniating into thorax through paraesophageal hernia Discussed with surgery - Dr. Lomas discussed with GI - to eval for colonic decompression NG tube currently being placed May need additional lasix - holding currently May need return to OR for reduction (2) Lower GI bleed Comment: - got total of 9 u pRBC this admission. - s/p colonoscopy 03/06 with severe diverticulosis on L but no active bleeding. - s/p EGD 03/07 with e/o of large hiatal hernia but no reported bleeding source - s/p ex lap on 03/08/18 and excision of cecum by Dr. Lomas -H/H stable 03/11 (3) Anemia Comment: In setting of acute blood loss Trend (4) HTN (hypertension) Comment: - Normotensive - Hold losartan and HCTZ (5) DVT prophylaxis Comment: SCDs (6) Fluid overload due to blood transfusion Comment: significant edema Received Lasix 40 mg IV Hold additional lasix 2/2 potential pending oricedures (colonoscopy v OR) (7) Sepsis Comment: Did meet SIRS with leukocytosis and tachy suspected SIRS due to post op response and not acute infection Zosyn stopped Status and Disposition: medicine inpatient.
[2018-03-11] MEDS: Pantoprazole IV* 40 MG IV SCH (09:23)
[2018-03-11] MEDS: Heparin VIAL(*) 5000 UNITS/ML VIAL (FIVE THOUSAND) SUBCUT SCH (09:24)
--- NOTE | 2018-03-11 09:27 | PN ---
Progress Note - Progress Note Date of Service: 03/11/18 SOAP: Subjective: Events overnight reviewed. Per RN she received lasix for SOB without improvement. She has SOB. Reports some flatus. No BMs. Objective: Vital Signs Temp 98.5 F 03/11/18 04:00 Pulse 105 03/11/18 04:00 Resp 16 03/11/18 05:37 BP 135/72 03/11/18 04:00 Pulse Ox 100 03/11/18 04:00 Gen: sleeping, arousable; appears SOB Lungs: decr BS on L, bowel sounds noted. Abd: distended, +tympany, incision c/d/i; no erythema. Mildly tender. Intake & Output 03/10/18 03/11/18 03/11/18 18:59 06:59 18:59 Intake Total 435 1353 Output Total 1575 1475 Balance -1140 -122 Weight 180 lb 14.4 oz Intake: IV Fluids 1003 ABX - PIPERACILLIN 210 KCL in Sterile Water 245 NS (0.9%) 548 Oral 435 350 Output: Urine 1300 1475 Darby 275 Laboratory Results - last 24 hr 03/11/18 03/11/18 05:32 05:32 WBC 5.9 RBC 2.44 L Hgb 7.4 L Hct 22 L MCV 92 MCH 30 MCHC 33 RDW 17 H Plt Count 348 MPV 7.4 Neut % (Auto) 77.9 Lymph % (Auto) 7.[address] [place] % (Auto) 13.7 H Eos % (Auto) 0.3 Baso % (Auto) 0.2 Absolute Neuts (auto) 4.6 Absolute Lymphs (auto) 0.5 L Absolute Monos (auto) 0.8 Absolute Eos (auto) 0 Absolute Basos (auto) 0 Absolute Nucleated RBC 0 Nucleated RBC % 0.3 Sodium 140 Potassium 3.4 L Chloride 109 Carbon Dioxide 23 Anion Gap 8 BUN 18 Creatinine 0.97 H Est GFR ( Amer) 66.7 Est GFR (Non-Af Amer) 55.1 BUN/Creatinine Ratio 18.6 Glucose 161 H Calcium 7.7 L Magnesium 1.7 L Active Medications Generic Name Dose Route Start Last Admin Trade Name Freq PRN Reason Stop Dose Admin Heparin Sodium (Porcine) 5,000 units 03/08/18 22:00 03/10/18 20:16 Heparin Vial(*) SUBCUT 5,000 units Q12HR CR Administration Hydromorphone HCl 0.5 mg 03/08/18 21:46 03/11/18 05:37 Dilaudid Inj1s* IV 0.5 mg Q3H PRN Administration PAIN MODERATE Hydromorphone HCl 1 mg 03/08/18 21:47 03/09/18 06:35 Dilaudid Inj1s* IV 0.5 mg Q3H PRN Administration PAIN MODERATE TO SEVERE Piperacillin Sod/Tazobactam 100 mls @ 25 mls/hr 03/09/18 06:00 03/11/18 05:31 Sod 3.375 gm/ Sodium Chloride IVPB 25 mls/hr Q8H CR Administration Melatonin 3 mg 03/10/18 21:00 03/10/18 21:59 Melatonin PO 3 mg BEDTIME PRN Administration INSOMNIA Metoprolol Tartrate 5 mg 03/10/18 13:00 03/11/18 04:02 Lopressor Iv* IV 5 mg Q4H CR Administration Ondansetron HCl 4 mg 03/04/18 00:15 03/05/18 16:02 Zofran Inj* IV 4 mg Q4H PRN Administration NAUSEA/VOMITING Pantoprazole Sodium 40 mg 03/09/18 09:00 03/10/18 09:43 Protonix Iv* IV 40 mg DAILY CR Administration Pharmacy Profile Note 1 note 03/11/18 18:00 Scopolamine Patch Remove* PATCH OFF .AFTER 72 HOURS [facility] CXR: HH with compressive atalectasis of L lung by dilated colon. Mediastinal shift. Assessment: POD#3 s/p R colectomy for LGIB. H/H stable. SOB appears to be due to HH with dilated colon compressing lung. Plan: NGT placement. NPO. Needs decompressive colonoscopy. Transfer to ICU for respiratory status. D/w Dr. Hobson and Dr. Pena. SACMA to cover me until 03/14. D/w daughter Jyothi.
[2018-03-11] MEDS ORDERED: fentaNYL* 50 MCG/ML 2 ML VIAL (100 MCG VIAL) ONE (12:07)
[2018-03-11] MEDS ORDERED: Midazolam* 1 MG/ML 10 ML VIAL (10 MG) ONE (12:07)
--- NOTE | 2018-03-11 17:44 | PN ---
Date of Service: 03/11/18 Critical Care Services: Broght back to ICU because of respiratory distress and CXR showing worsening of hiatal hernia, with colon almost filling left hemithorax. Had lower GI endoscopy in an attempt to decompress colon, but was largely unsuccessful. After admission to ICU, patient showed no evidence of respiratoy distress, and was oxygenating adequately on nasal O2 at 3-5 L/min. Vital Signs: Temp Pulse Resp BP SpO2 FiO2 97.7 F 106 15 131/88 100 Physical Exam: Gen:Somnolent but easily arousable (post-procedure) Lungs:Right side clear Abdomen:Not distended. Extremities:2+ edema (same as before). No cyanosis. Fluid Balance (Past 24 Hours): 03/09/18 03/10/18 03/11/18 06:59 06:59 06:59 Intake Total 4603 2363 1788 Output Total 1240 3403 3050 Balance 3363 -1040 -1262 Weight 180 lb Intake: IV Fluids 2511 1645 1003 ABX - PIPERACILLIN 210 ABX - ZOSYN 31 Blood 248 KCL in Sterile Water 245 LR 2263 1549 NS (0.9%) 65 548 IVPB 1772 408 ABX - ZOSYN 304 Albumin 25% 104 LR 0 NS (0.9%) 1772 Medicated IV 200 Calcium Gluconate 100 GEN - Magnesium 100 Oral 320 110 785 Output: Urine 165 2775 Darby 1240 3238 275 Labs: 03/11/18 03/11/18 05:32 05:32 WBC 5.9 RBC 2.44 L Hgb 7.4 L Hct 22 L MCV 92 MCH 30 MCHC 33 Plt Count 348 Sodium 140 Potassium 3.4 Chloride 109 Carbon Dioxide 23 Anion Gap 8 BUN 18 Creatinine 0.97 H Glucose 161 Calcium 7.7 L Magnesium 1.7 L Studies: None today Nutrition: NPO for now Impression: Worsening of large, left-sided hiatal hernia following right colectomy (almost behaving like a postop ileus acting through a hiatal hernia). Patient is clinically stable at this time, but condition is very concerning. Plan: Patient to be transferred to [facility] (thoracic surgery service ) for evaluation and possible surgical correction of the hiatal hernia. Critical Care Time:
[2018-03-11] MEDS ORDERED: Scopolamine PATCH Remove* 1 NOTE MISC PATCH OFF SCH (18:00)
[2018-03-11] MEDS ORDERED: D5LR 1000 ML BAG* 1,000 ML IV SCH (19:00)
[2018-03-11 20:48] VITALS: BP 131/77
--- NOTE | 2018-03-11 22:49 | PRO ---
DATE OF PROCEDURE: 03/11/18 - ROOM #ICU-06 PROCEDURE: Flexible sigmoidoscopy. INDICATION: Extremely large intrathoracic hiatal hernia with presence of colon in the hernia, surgical services have requested an attempted decompressive colonoscopy. DESCRIPTION OF PROCEDURE: After the flexible sigmoidoscopy procedure including risks, benefits, and alternatives, not limited to perforation, surgery, and/or were explained to the patient and her daughter, written consent was then obtained. IV medication was given and a rectal exam was performed, it was unremarkable. Olympus colonoscope was then inserted into the patient's rectum and advanced to approximately 30 cm from the anal verge. At this juncture, there was an extreme angulation. I did attempt to navigate through the angulation, however, I met some resistance. I did not feel comfortable in pushing through this area given the fact this may be up in her thoracic hernia. I did suction, I used absolutely no air insufflation, I did use some water. I did slowly withdraw the scope and suctioned all along the way trying to decompress as much as I could. The quality of the preparation was poor. There was old blood throughout the entirety of the colon and moderate to severe diverticulosis. The scope was withdrawn from the patient. She tolerated the procedure well and was returned to the care of the ICU staff. IMPRESSION: 1. Flexible sigmoidoscopy to 30 cm. 2. Decompression. 3. Unfortunately, the patient has an extremely large hiatal hernia with colon in the hernia. I think she should be transferred to another institution for cardiothoracic surgical backup. This was discussed with surgical services and with the ICU staff, they are all in agreement. [id number]/[facility] #: [id number] YULISA
== END 2018-03-11 20:45 | disposition short-term general hospital (02) | DRG 330 ==
LOC: ED 22:23 → MED 03-04 00:15 → OBSVTOIN 03-04 11:33 → ICU 03-05 16:49 → MEDTELE 03-06 14:58 → ICU 03-08 21:21 → SSU 03-10 12:39 → ICU 03-11 10:21
PROVIDERS: ADMIT Pediatrics; ATTEND Surgery
PROC: 0DBH8ZZ Excision of Cecum, Via Natural or Artificial Opening Endoscopic (ICD-10-PCS; 2018-03-06)
PROC: 0D9E8ZZ Drainage of Large Intestine, Via Natural or Artificial Opening Endoscopic (ICD-10-PCS; 2018-03-08)
PROC: 30233N1 Transfusion of Nonautologous Red Blood Cells into Peripheral Vein, Percutaneous Approach (ICD-10-PCS; 2018-03-08)
PROC: 0DB98ZX Excision of Duodenum, Via Natural or Artificial Opening Endoscopic, Diagnostic (ICD-10-PCS; 2018-03-08)
PROC: 0DTF0ZZ Resection of Right Large Intestine, Open Approach (ICD-10-PCS; principal; 2018-03-11)
PROC: 0DH673Z Insertion of Infusion Device into Stomach, Via Natural or Artificial Opening (ICD-10-PCS; 2018-03-11)
DX: K57.31 Diverticulosis of large intestine without perforation or abscess with bleeding (principal); D62 Acute posthemorrhagic anemia; K44.0 Diaphragmatic hernia with obstruction, without gangrene; E11.9 Type 2 diabetes mellitus without complications; I10 Essential (primary) hypertension; E78.00 Pure hypercholesterolemia, unspecified; M48.00 Spinal stenosis, site unspecified; Z98.42 Cataract extraction status, left eye; Z98.41 Cataract extraction status, right eye; Z83.3 Family history of diabetes mellitus; Z72.89 Other problems related to lifestyle; Z87.891 Personal history of nicotine dependence; R11.0 Nausea; E87.6 Hypokalemia; E83.51 Hypocalcemia; E83.42 Hypomagnesemia; E87.71 Transfusion associated circulatory overload; K63.5 Polyp of colon; M19.90 Unspecified osteoarthritis, unspecified site; E78.5 Hyperlipidemia, unspecified; D25.9 Leiomyoma of uterus, unspecified; R04.0 Epistaxis
CPT/HCPCS: 36415; 71045; 71046; 78278; 80048; 80053; 82306; 82330; 83605; 83735; 83880; 83970; 84100; 85014; 85018; 85025; 85060; 85610; 85730; 86850; 86900; 86901; 86922; 87040; 87077; 87641; 88305; 88307; 93005; 99156; 99157; 99284; A9270-GY; A9512; A9538; C1776; J0330; J0610; J0780; J1170; J1240; J1335; J1644; J1940; J2250; J2270; J2405; J2543; J3010; J3475; J3480; J3490; P9040; P9047

== ENCOUNTER 2018-09-26 09:58 | Emergency (ER) | payer MEDICARE ==
[2018-09-26 10:18] VITALS: BP 149/84
--- NOTE | 2018-09-26 10:40 | UC ---
Abdominal Pain Female HPI - HPI Summary HPI Summary: The patient is a 82-year-old female with intermittent right upper quadrant pain that started yesterday. The pain is especially bad if she coughs sneezes or twists. She states that she has been trying to prepare her house for visitors so she has been doing a lot of weeding. The past 2 days she has been working on her knees pulling weeds with her right arm. If she twists or bends over she has sharp pain. She denies any fever or chills. She denies any chest pain. She denies any shortness of breath. She states she had a couple coffee this morning but did not eat breakfast. Late last year she had a right hemicolectomy for a diverticular bleed. She denies any abdominal distention or UTI symptoms. - History of Current Complaint Chief Complaint: UCGeneralIllness Stated Complaint: ABD PAIN Time Seen by Provider: 09/26/18 10:19 Hx Obtained From: Patient Onset/Duration: Gradual Onset, Lasting Hours Timing: Intermittent Episodes Lasting: - seconds 10 or less Severity Initially: Severe Severity Currently: None Pain Intensity: 8 - when she has pain it is severe Pain Scale Used: 0-10 Numeric Location: Discrete At: RUQ Radiates: No Character: Sharp Aggravating Factor(s): Movement, Deep Breaths Alleviating Factor(s): Nothing Associated Signs and Symptoms: Positive: Negative Female Torso: 1 - pain Allergies/Adverse Reactions: Allergies Allergy/AdvReac Type Severity Reaction Status Date / Time No Known Allergies Allergy Verified 09/26/18 10:18 Home Medications: Home Medications Warfarin TAB(*) [Coumadin TAB(*)] 5 mg PO DAILY 09/26/18 [History Confirmed 02/04] PMH/Surg Hx/FS Hx/Imm Hx Previously Healthy: Yes Cardiovascular History: Hypertension GI/ History: Gastrointestional Bleed, Other Other GI/ History: large hiatal hernia Other History Of: Anticoagulant Therapy Negative For: HIV, Hepatitis B, Hepatitis C - Surgical History Surgical History: Yes Surgery Procedure, Year, and Place: LEFT FOOT SURGERY/PIN PLACEMENT, INGUINAL HERNIA REPAIR, TONSILS, CATARACT REPAIR-BILATERAL EYES 2012 - Family History Known Family History: Positive: Diabetes Negative: Cardiac Disease, Hypertension, Renal Disease - Social History Alcohol Use: None Alcohol Amount: 4-6 drinks a week Substance Use Type: None Smoking Status (MU): Former Smoker Amount Used/How Often: 1/2 PPD Length of Time of Smoking/Using Tobacco: 5 YEARS Have You Smoked in the Last Year: No When Did the Patient Quit Smoking/Using Tobacco: 1971 - Immunization History Most Recent Influenza Vaccination: 01/2018 Most Recent Pneumonia Vaccination: 2009 Review of Systems All Other Systems Reviewed And Are Negative: Yes Constitutional: Positive: Negative Skin: Positive: Negative Eyes: Positive: Negative ENT: Positive: Negative Respiratory: Positive: Negative Cardiovascular: Positive: Negative Gastrointestinal: Positive: Abdominal Pain Genitourinary: Positive: Negative Motor: Positive: Negative Neurovascular: Positive: Negative Musculoskeletal: Positive: Negative Neurological: Positive: Negative Psychological: Positive: Negative Physical Exam Triage Information Reviewed: Yes Appearance: Well-Appearing, No Pain Distress, Well-Nourished Vital Signs: Initial Vital Signs Temp 97.5 F 09/26/18 10:11 Pulse 82 09/26/18 10:11 Resp 18 09/26/18 10:11 BP 149/84 09/26/18 10:11 Pulse Ox 100 09/26/18 10:11 Vital Signs Reviewed: Yes Eyes: Positive: Conjunctiva Clear ENT: Positive: Hearing grossly normal. Negative: Nasal congestion, Nasal drainage, Trismus, Hoarse voice Neck: Positive: Supple, Nontender, No Lymphadenopathy Respiratory: Positive: Lungs clear, Normal breath sounds, No respiratory distress Cardiovascular: Positive: RRR, No Murmur Abdomen Description: Positive: No Organomegaly, McBurney's Point Tenderness. Negative: Nontender - tender RUQ abd as well as right floating ribs, CVA Tenderness (R), CVA Tenderness (L), Distended, Guarding, Pulsatile Mass, Splenomegaly Bowel Sounds: Positive: Present, Hyperactive Musculoskeletal: Positive: ROM Intact, No Edema Neurological: Positive: Alert Psychological Exam: Normal Skin Exam: Normal Diagnostics - Radiology No standard instances Radiology Interpretation Completed By: Radiologist Summary of Radiographic Findings: IMPRESSION: 1. NORMAL STUDY OF THE GALLBLADDER. 2. SMALL RIGHT RENAL CYST OTHERWISE UNREMARKABLE. Abd Pain Female Course/Dx - Differential Dx/Diagnosis Provider Diagnosis: Strain of abdominal wall Discharge - Sign-Out/Discharge Documenting (check all that apply): Patient Departure All imaging exams completed and their final reports reviewed: Yes - Discharge Plan Condition: Stable Disposition: HOME Patient Education Materials: Acute Abdominal Pain (ED) Referrals: Анна Caputo MD [Primary Care Provider] - As Soon As Possible Additional Instructions: I suspect that the intermittent pains you are experiencing are due to musculo - skeletal strain from all the yard work you have been doing If the pains become constant get rechecked warm alternating with cold compresses - Billing Disposition and Condition Condition: STABLE Disposition: Home
== END 2018-09-26 11:50 | disposition home or self-care (01) ==
LOC: UCEAST 09:58
DX: S39.011A Strain of muscle, fascia and tendon of abdomen, initial encounter (principal); X50.0XXA Overexertion from strenuous movement or load, initial encounter; X50.3XXA Overexertion from repetitive movements, initial encounter; Y93.H2 Activity, gardening and landscaping; Y92.007 Garden or yard of unspecified non-institutional (private) residence as the place of occurrence of the external cause; Z79.01 Long term (current) use of anticoagulants; I10 Essential (primary) hypertension; Z87.891 Personal history of nicotine dependence
CPT/HCPCS: 76705; 99211; G0463

== ENCOUNTER 2019-01-17 05:34 | Observation (INO) | payer MEDICARE ==
--- NOTE | 2019-01-02 14:25 | HP ---
AMENDED REPORT NOW INCLUDES DESIGNATED COSIGNER - ESIGNED BEFORE ADJUSTMENTS CC: Dr. Анна Caputo * ADMISSION HISTORY AND PHYSICAL: DATE OF ADMISSION: 01/17/19 ATTENDING SURGEON: Dr. Justice Lomas.* (DICTATED BY MONTY GALLEGO) CHIEF COMPLAINT: Epigastric incisional hernia. HISTORY OF PRESENT ILLNESS: This is a 83-year-old female, who in February 2018 underwent urgent exploratory laparotomy with right colectomy for lower GI bleeding. Her postoperative course was such that she did require transfer to [place] and eventual discharge to home. She did not have any complications related to wound healing i.e., hematoma or infection. Beginning approximately 3 months ago, after straining for a bowel movement, she noted the development of a bulge in the upper mid abdomen. This was associated with discomfort, but never any severe pain. She does not have chronic constipation nor require regular laxative use. She has not had any nausea or vomiting. She believes that the bulge has increased somewhat in size since her initial visit with Dr. Lomas on 10/06/18. At that time, Dr. Lomas' exam revealed a minimally tender, reducible midepigastric incisional hernia with defect measuring 3 cm or less. On my exam today that appears to be similar with no additional hernia defects noted. Dr. Lomas discussed with her the indications for repair and methods thereof. She is aware of the risks, benefits, and alternatives including watchful waiting. She would like to proceed as scheduled with open repair epigastric incisional hernia. At this point, plan is to do this as a primary repair. PAST MEDICAL HISTORY: 1. Hiatal hernia (largely asymptomatic though she apparently had dilated colon within the hernia during the postoperative period last year February that led to respiratory distress and required ultimate transfer to [place]. She has not had any significant symptoms in the meantime.) 2. She has a history of pancolonic diverticulosis with lower GI bleed as an indication for the right colectomy as noted above. 3. She has a history of lumbosacral degenerative disk disease and lumbar spinal stenosis with recent exacerbation (pending appointment at pain clinic on 01/26/19). 4. Hypertension. 5. History of right upper extremity DVT during the postoperative period, apparently related to a PICC line, treated with warfarin which she no longer requires. 6. She has diet-controlled diabetes. PAST SURGICAL HISTORY: 1. Right colectomy for lower GI bleeding in February 2018. 2. Open left inguinal herniorrhaphy, February 1991. 3. Tonsillectomy and bilateral cataract surgeries. No reported surgical or anesthesia complications other than as noted above. CURRENT MEDICATIONS: 1. Hydrochlorothiazide 25 mg once daily. 2. Aspirin 81 mg once daily (she will hold after her 01/09/19 dose). 3. Vitamin E 400 IU every other day. 4. Tylenol p.r.n. for back pain. 5. Tramadol 50 mg every 6 hours p.r.n. for pain (has used 1 in the past week for back pain). DRUG ALLERGIES: None. (She has had history of local reaction from her bra strap which she assumes was related to latex.) FAMILY HISTORY: Negative for anesthesia problems, bleeding, or clotting disorders. SOCIAL HISTORY: The patient lives alone but does have family support. She is a former smoker of less than 1 pack per day, but quit approximately 4 years ago. She drinks between 1 to 2 glasses of wine 3 times weekly. She denies any other recreational drug use. REVIEW OF SYSTEMS: General: No recent constitutional symptoms or acute illnesses other than described above. She does have a pending appointment at pain clinic on 01/26/19 for her lower back pain. She has been a previous patient of that clinic. HEENT: No new acute problems reported. Cardiovascular : No chest pain or palpitations. No history of heart murmur. She is treated for hypertension. Respiratory: No history of asthma, chronic cough, or shortness of breath. GI: As above, per HPI. She did undergo both colonoscopy and EGD around the time of surgery last year. : No problems reported. ANT[employer] OFFICER: She no longer has Pap smears or breast exams done. No interval problems reported. Endocrine: Diet-controlled diabetes. Her highest morning fasting fingerstick was 118. She recalls her A1c being between 6 and 7. No thyroid dysfunction. Musculoskeletal: As noted above with history of lumbar disk disease and lumbosacral spinal stenosis. PHYSICAL EXAMINATION GENERAL: Well-nourished, well-developed female, in no acute distress. VITAL SIGNS: Height 5 feet 4 inches, weight 135 pounds. Temperature 97.9, blood pressure 122/72, pulse 72, respirations 16. SKIN: Warm and dry. No suspicious rashes or lesions. HEENT: Pupils equal, round, and reactive. EOMs intact. No conjunctival pallor. Oropharynx: Teeth in good repair. No intraoral lesions. NECK: No lymphadenopathy, thyromegaly, or masses. LUNGS: Clear to auscultation. No rales or wheezes. HEART: Regular rate and rhythm. No murmur appreciated. She does have bowel sounds present in the chest. ABDOMEN: Well-healed midline incision with palpable defect in the epigastric region as described in the HPI. On today's exam, this is self reducible when in supine position and minimally tender. No other palpable masses, tenderness, or organomegaly. GENITALIA AND RECTAL: Not done. BACK: Some minor lumbar spinal tenderness. No CVA tenderness. EXTREMITIES: Trace edema in bilateral lower extremities. No edema on the right upper extremity. NEUROLOGICAL: Grossly intact. IMPRESSION: Epigastric incisional hernia. PLAN: Open repair epigastric incisional hernia. MONTY GALLEGO [id number]/[facility] #: [id number] MTDD
[~2019-01-17 05:34] MED LIST: Buffered Lidocaine 1% SYRIN* 1 ML/SYRINGE INTRADERM ONE
[2019-01-17] MEDS ORDERED: Lactated Ringers 1000 ML Bag* 1,000 ML IV SCH ×2 (06:00→13:00)
[2019-01-17] MEDS ORDERED: Gabapentin CAP(*) 300 MG PO ONE (06:00)
[2019-01-17] MEDS ORDERED: Acetaminophen TAB* 325 MG PO ONE (06:00)
[2019-01-17] MEDS ORDERED: Gabapentin CAP(*) 100 MG ONE (06:03)
[2019-01-17] MEDS ORDERED: Acetaminophen TAB* 325 MG ONE (06:03)
[2019-01-17] MEDS ORDERED: ceFAZolin 2 GM in NS PREMIX(*) 2 GM/100 ML BAG IVPB ONE (06:04)
[2019-01-17] MEDS ORDERED: Buffered Lidocaine 1% SYRIN* 1 ML/SYRINGE INTRADERM ONE (06:04)
[2019-01-17] MEDS ORDERED: Midazolam* 1 MG/ML 2 ML VIAL (2 MG) ONE (07:18)
[2019-01-17] MEDS ORDERED: fentaNYL* 50 MCG/ML 2 ML VIAL (100 MCG VIAL) ONE ×3 (07:18→09:45)
[2019-01-17] MEDS ORDERED: Famotidine IV* 10 MG/ML 2 ML (20 mg) ONE (07:28)
[2019-01-17] MEDS ORDERED: Lidocaine 1% INJ* 10 MG/ML 30 ML SDV ONE (07:32)
[2019-01-17] MEDS ORDERED: Bupivacaine 0.25% W/EPI* 10 ML SDV ONE (07:32)
[2019-01-17] MEDS ORDERED: Bupivacaine 0.25% EPI 200,000* 30 ML SDV ONE (07:42)
[2019-01-17] MEDS ORDERED: Cisatracurium* 2 MG/ML MDV 5 ML ONE (07:53)
[2019-01-17] MEDS ORDERED: Lidocaine 2% PF * 5 ML VIAL ONE (08:05)
[2019-01-17] MEDS ORDERED: Dexamethasone IV* 4 MG/ML 1 ML (4 MG) ONE (08:06)
[2019-01-17] MEDS ORDERED: Ondansetron INJ* 2 MG/ML VIAL ONE (08:06)
[2019-01-17] MEDS ORDERED: Succinylcholine* 20 MG/ML 10 ML VIAL ONE (08:06)
[2019-01-17] MEDS ORDERED: Propofol* 10 MG/ML 20 ML BTL ONE (08:06)
[2019-01-17] MEDS ORDERED: HYDROcodone/ACETAMIN 5-325 MG* 1 TAB PO PRN (08:42)
[2019-01-17] MEDS ORDERED: Ondansetron INJ* 2 MG/ML VIAL IV PRN ×2 (08:42→12:55)
[2019-01-17] MEDS ORDERED: DiMENhydriNATE IV* 50 MG/ML VIAL IV PUSH PRN (08:42)
[2019-01-17] MEDS ORDERED: Naloxone* 0.4 MG/ML 1 ML VIAL IV PRN (08:42)
[2019-01-17] MEDS: fentaNYL* 50 MCG/ML 2 ML VIAL (100 MCG VIAL) IV PRN ×4 (09:46→11:01)
[2019-01-17] MEDS ORDERED: HYDROcodone/ACETAMIN 5-325 MG* 1 TAB ONE ×2 (09:58→12:17)
[2019-01-17] MEDS ORDERED: HYDROcodone/ACETAMIN 5-325 MG* 1 TAB PO ONE (12:12)
[2019-01-17] MEDS ORDERED: Acetaminophen TAB* 325 MG PO PRN (12:55)
[2019-01-17] MEDS ORDERED: HYDROmorphone INJ* 0.5 MG/0.5 ML SYRINGE IV SLOW PU PRN (12:55)
[2019-01-17] MEDS ORDERED: Docusate CAP* 100 MG PO PRN (12:55)
[2019-01-17] MEDS: HYDROcodone/ACETAMIN 5-325 MG* 1 TAB PO PRN ×2 (17:24→22:08)
[2019-01-17] MEDS: Heparin VIAL(*) 5000 UNITS/ML VIAL (FIVE THOUSAND) SUBCUT SCH (22:05)
--- NOTE | 2019-01-17 22:43 | OP ---
CC: Анна Caputo MD * DATE OF OPERATION: 01/17/19 - ROOM #334 DATE OF : 37 SURGEON: Justice Lomas MD. TECHNICAL SUPPORT AGENT: Mila Hodge NP. ANESTHESIOLOGIST: Kelvin Cunha MD. ANESTHESIA: General endotracheal. PRE-OP DIAGNOSIS: Epigastric incisional hernia. POST-OP DIAGNOSIS: Incisional hernia. OPERATIVE PROCEDURE: Open primary repair of incisional hernia. ESTIMATED BLOOD LOSS: Less than 10 mL. IV FLUIDS: Crystalloid. SPECIMEN: None. DRAINS: None. COMPLICATIONS: None. COUNTS: The instrument, needle, and sponge counts were correct. DESCRIPTION OF PROCEDURE: The patient was brought to the operating room and placed on the table supine. Sequential compression devices were placed in both lower extremities. General anesthesia was administered. She was prepped and draped in the usual sterile fashion and received appropriate intravenous antibiotics. Time-out was performed after she was sterilely prepped and draped. Local anesthetic was infiltrated to the skin and soft tissue. Upper midline incision was created through the previous scar. A 4-cm hernia defect was identified. The sac was dissected free from this. There were no adhesions of viscera within the sac. The fascial edges were well defined and then the defect was closed with a series of #1 Ethibond suture in [id number] fashion. After this was closed, the inferior portion of the scar was opened through the previous scar and the sac was identified and this area was dissected free back to healthy fascia. Again, this was closed with a series of interrupted [id number]-[id number] sutures with #1 Ethibond. The hernia defect at this site was about 6 cm. This easily came together and the wounds were irrigated and then closed with yvonne and dressings applied. The patient tolerated the procedure well. She was extubated and transferred to Recovery in stable condition. [id number]/[facility] #: [id number] [facility]OSPITALHenry
[2019-01-18] MEDS: HYDROcodone/ACETAMIN 5-325 MG* 1 TAB PO PRN ×2 (02:38→08:53)
[2019-01-18] MEDS: Heparin VIAL(*) 5000 UNITS/ML VIAL (FIVE THOUSAND) SUBCUT SCH (08:54)
[2019-01-18] MEDS ORDERED: Hydrochlorothiazide TAB* 25 MG PO SCH (09:00)
[2019-01-18] MEDS ORDERED: Ibuprofen TAB* 400 MG PO ONE (10:23)
[2019-01-18 11:36] VITALS: BP 120/59
--- NOTE | 2019-01-18 12:58 | DS ---
AMENDED REPORT NOW INCLUDES DESIGNATED COSIGNER CC: Dr. Анна Caputo * DISCHARGE SUMMARY: DATE OF ADMISSION: 01/17/19 DATE OF DISCHARGE: 01/18/19 ATTENDING SURGEON: Dr. Justice Lomas.* (DICTATED BY MIRLANDE SHIN NP) HOSPITAL COURSE: Please refer to admission history and physical for admission details. The patient was taken to the operating room on 01/17/19 and underwent open repair of epigastric incisional hernias, which were closed primarily by Dr. Lomas. She had postoperative pain management issues and was kept overnight. This morning, she is doing well with good pain control with hydrocodone/acetaminophen and is tolerating a regular diet and is ambulating with her walker. She is voiding without difficulty. PHYSICAL EXAMINATION: Vital Signs: Temperature 97.9, blood pressure 120/59, pulse 78 and regular, respiratory rate 18, O2 saturation on room air 96%. General: Well nourished and in no acute distress, sitting up on the edge of the bed. Lungs: Breath sounds bilaterally clear and equal. Heart: Regular rate and rhythm. No murmurs or rubs appreciated. Abdomen: Midline incisions above and below the umbilicus are intact with surgical yvonne and are clean and dry without any active drainage or erythema; bowel sounds are active and her abdomen is soft and nondistended and has appropriate incisional tenderness. Extremities are warm. Calves are nontender. No edema. IMPRESSION: Postoperative day 1 status post open primary repair of epigastric incisional hernias, doing well. CONDITION: Stable. PLAN: Discharge home today. She will resume her usual home medications; a prescription for hydrocodone/acetaminophen 5/325 mg was sent to [facility] pharmacy ; pain management was discussed with the patient and her daughter and the use of ibuprofen was also advised. Activity guidelines were reviewed. All of their questions were answered; she has a followup in our office on 01/25/19 and knows to call sooner with any concerns. MIRLANDE SHIN NP [id number]/[facility] #: [id number] [facility]OSPITALHenry
== END 2019-01-18 14:00 | disposition home or self-care (01) ==
LOC: OR 05:34 → SSU 12:55
PROVIDERS: ADMIT Surgery; ATTEND Surgery
DX: K43.2 Incisional hernia without obstruction or gangrene (principal); I10 Essential (primary) hypertension; K57.90 Diverticulosis of intestine, part unspecified, without perforation or abscess without bleeding; E11.9 Type 2 diabetes mellitus without complications; Z87.891 Personal history of nicotine dependence; M51.37 Other intervertebral disc degeneration, lumbosacral region; Z79.899 Other long term (current) drug therapy; Z79.82 Long term (current) use of aspirin; Z86.718 Personal history of other venous thrombosis and embolism
CPT/HCPCS: 96372; 96374; 96376; A9270-GY; G0378; J0330; J0690; J1100; J1644; J2250; J2405; J2704; J3010

== ENCOUNTER 2019-06-20 10:40 | Observation (INO) | payer MEDICARE ==
--- NOTE | 2019-06-14 10:48 | HP ---
CC: Dr. Анна Caputo * PREOPERATIVE HISTORY AND PHYSICAL: DATE OF ADMISSION/SURGERY: 06/20/19 DATE OF PREOPERATIVE HISTORY AND PHYSICAL: 06/13/19. This patient is scheduled for same-day surgery admission by Dr. Lomas on 06/20/19. ATTENDING SURGEON: Dr. Justice Lomas * (dictated by Mirlande Shin NP) CHIEF COMPLAINT: Recurrent abdominal hernia. HISTORY OF PRESENT ILLNESS: The patient is an 83-year-old female known to Dr. Lomas status post repair of ventral incisional hernia January 2019. She presented to Dr. Lomas in our office in April of this year with concern for recurrent hernia. She has also noticed straining with bowel movements, but denies any nausea or vomiting. She denies any current abdominal pain. She previously was experiencing right upper quadrant abdominal pain intermittently and had an ultrasound done in September 2018 and there were no gallstones noted. Dr. Lomas ordered a CAT scan of the abdomen and pelvis, which revealed a periumbilical hernia containing small bowel. Therefore, she has a recurrent ventral incisional hernia. Dr. Lomas examined the patient and discussed the findings with her and has recommended a robotic repair of the recurrent ventral incisional hernia with mesh as a same-day surgery procedure with general anesthesia. Dr. Lomas discussed the nature of the surgery, the use of mesh, the rationale for the surgery, the relevant risks and benefits and today I reviewed the typical postoperative care and recovery. The patient and her daughter who accompanied her today has had a chance to ask questions and stated that they understand the information and are satisfied with the answers given to their questions. The patient will sign surgical consent on the day of surgery. PAST MEDICAL HISTORY: Right upper extremity deep vein thrombosis in 2018; hypertension; chronic back pain associated with a herniated disc, diet- controlled diabetes, diverticular disease associated with lower GI bleed in 2018. PAST SURGICAL HISTORY: Open repair of epigastric incisional hernia January [address] Lomas, exploratory laparotomy with right colectomy for lower GI bleeding in February 2018, open left inguinal herniorrhaphy 1990, tonsillectomy , and bilateral cataract extractions. CURRENT MEDICATIONS: 1. Hydrochlorothiazide 25 mg p.o. daily. 2. Aspirin 81 mg p.o. daily, which she will hold 5 days preoperatively. 3. Vitamin E 200 units p.o. daily. 4. Ibuprofen 400 to 600 mg every 6 hours as needed for pain and she does not take that routinely. ALLERGIES: No known drug allergies, but she is very sensitive to latex. FAMILY HISTORY: Family history is negative for anesthesia problems, bleeding tendencies, or clotting disorders. SOCIAL HISTORY: She lives alone, but her daughter recently moved here from [place] and is very supportive; she is a former smoker of less than 1 pack per day and quit approximately 5 years ago; she drinks wine on occasion and denies any other substance use. REVIEW OF SYSTEMS: Constitutional: No fevers, chills, excessive fatigue, or weight loss. EENMT: No significant visual difficulties. No problems with hearing. No sore throat or sinus drainage. Endocrine: Diet-controlled diabetes with fingerstick at home in the 91 to 126 range typically. No known thyroid disease. General: No previous anesthesia complications. She received multiple blood transfusions after lower GI bleed in 2018 and she also has a history of a deep vein thrombosis in the right upper extremity apparently related to a PICC line during the postoperative period in 2018, treated with warfarin which she no longer requires. Respiratory: No dyspnea on exertion. No chronic cough. Cardiovascular: No anginal chest pain, palpitations, chest pressure, or orthopnea. Today on physical exam, her heart rhythm was irregularly irregular and she was sent for an EKG and a P3 with her preadmission testing and we will review those results preoperatively. Gastrointestinal: No nausea or vomiting or diarrhea. She reports straining with bowel movements and recently started taking Colace. Genitourinary: No dysuria. Musculoskeletal: Mild lower back pain. Normal strength and tone. History of left sciatica followed previously in the pain clinic with steroid injections, none recently. Integumentary: No chronic rashes or skin changes. Neurologic: No headache or blurred vision or areas of focal weakness or numbness. Psychiatric: No reported depression or insomnia. She expresses mild anxiety about the upcoming surgery. PHYSICAL EXAMINATION GENERAL SURVEY: The patient is a 83-year-old female, well developed, well nourished, in no acute distress. VITAL SIGNS: Height 64 inches, weight 135 pounds, body mass index 23. Blood pressure 130/82, pulse 100, respiratory rate 16, temperature 97.3 tympanic. HEENT: Benign. NECK: Supple. No cervical lymphadenopathy. LUNGS: Breath sounds bilaterally clear and equal. HEART: Rhythm is irregularly irregular. No obvious murmurs or rubs. ABDOMEN: Active bowel sounds, soft, and nondistended. There is an obvious reducible ventral incisional hernia in the periumbilical region that reduces when she is supine. The patient states that the hernia has enlarged, and during the exam, there are audible bowel sounds without the use of stethoscope. PELVIC AND RECTAL EXAMS: Deferred. EXTREMITIES: Warm without edema or skin ulceration. NEUROLOGIC: Alert and oriented x3. Steady gait. SKIN: Warm, dry, and intact. IMPRESSION: Recurrent ventral incisional hernia. PLAN: Same-day surgery admission to Dr. Lomas' service on 06/20/19, for robotic repair of recurrent ventral incisional hernia with mesh. The patient has a preoperative appointment with her primary care provider, Dr. Анна Calvillo, for review of her EKG and labs done during the preadmission interview. MIRLANDE SHIN NP [id number]/[facility] #: [id number] YULISA
[~2019-06-20 10:40] MED LIST changes: +Lactated Ringers 1000 ML Bag* 1,000 ML IV SCH
[2019-06-20] MEDS ORDERED: EPHEDrine (Pressors)* 50 MG/ML VIAL ONE (10:43)
[2019-06-20] MEDS ORDERED: Propofol* 10 MG/ML 20 ML BTL ONE (10:43)
[2019-06-20] MEDS ORDERED: Glycopyrrolate IV* 0.2 MG/ML 1 ML VIAL ONE (10:43)
[2019-06-20] MEDS ORDERED: fentaNYL* 50 MCG/ML 2 ML VIAL (100 MCG VIAL) ONE (10:43)
[2019-06-20] MEDS ORDERED: Ondansetron INJ* 2 MG/ML VIAL ONE (10:43)
[2019-06-20] MEDS ORDERED: Dexamethasone IV* 4 MG/ML 1 ML (4 MG) ONE (10:43)
[2019-06-20] MEDS ORDERED: ceFAZolin 2 GM in NS PREMIX(*) 2 GM/100 ML BAG IVPB ONE (11:27)
[2019-06-20] MEDS ORDERED: Buffered Lidocaine 1% SYRIN* 1 ML/SYRINGE INTRADERM ONE (11:27)
[2019-06-20] MEDS ORDERED: Bupivacaine 0.5% W/EPI SDV* 30 ML VIAL ONE (13:46)
[2019-06-20] MEDS ORDERED: Rocuronium* 10 MG/ML VIAL ONE (13:50)
[2019-06-20] MEDS ORDERED: HYDROmorphone INJ1* 1 MG/ML SYRINGE ONE ×2 (15:09→17:35)
[2019-06-20] MEDS ORDERED: Sugammadex * 500 MG/5 ML VIAL IV PUSH ONE (17:08)
--- NOTE | 2019-06-20 17:08 | BRIEFOPN ---
Brief Operative/Procedure Note - Operation Details Pre-Op Diagnosis: ventral hernia Post-Op Diagnosis: same Procedures: robotic repair ventral hernia w/ mesh Surgeon(s)/Proceduralists: Abebe. Assist: MONTY Lynch; MONTY Chahal Anesthesia: GET. Fluids: 1500 ml Estimated Blood Loss: none Findings: as above Specimen(s)/Culture(s) Description: none Complications: none
[2019-06-20] MEDS ORDERED: Naloxone* 0.4 MG/ML 1 ML VIAL IV PRN (17:32)
[2019-06-20] MEDS ORDERED: DiMENhydriNATE IV* 50 MG/ML VIAL IV PUSH PRN (17:32)
[2019-06-20] MEDS ORDERED: oxyCODONE TAB* 5 MG TAB ONE (17:35)
[2019-06-20] MEDS: oxyCODONE TAB* 5 MG TAB PO PRN ×2 (17:37→17:38)
[2019-06-20] MEDS: HYDROmorphone INJ1* 1 MG/ML SYRINGE IV PRN ×5 (17:43→19:17)
[2019-06-20] MEDS ORDERED: HYDROmorphone INJ* 0.5 MG/0.5 ML SYRINGE IV SLOW PU PRN (19:48)
[2019-06-20] MEDS ORDERED: Ondansetron INJ* 2 MG/ML VIAL IV PRN (19:48)
[2019-06-20] MEDS ORDERED: Acetaminophen TAB* 325 MG PO PRN (19:48)
[2019-06-20] MEDS ORDERED: Lactated Ringers 1000 ML Bag* 1,000 ML IV SCH (20:00)
[2019-06-20] MEDS: HYDROcodone/ACETAMIN 5-325 MG* 1 TAB PO PRN (21:00)
[2019-06-20] MEDS: Heparin VIAL(*) 5000 UNITS/ML VIAL (FIVE THOUSAND) SUBCUT SCH (22:53)
[2019-06-21] MEDS: HYDROcodone/ACETAMIN 5-325 MG* 1 TAB PO PRN ×2 (01:09→11:12)
[2019-06-21] MEDS: Heparin VIAL(*) 5000 UNITS/ML VIAL (FIVE THOUSAND) SUBCUT SCH (05:40)
[2019-06-21 08:13] VITALS: BP 118/62
--- NOTE | 2019-06-21 09:04 | PN ---
Progress Note - Progress Note Date of Service: 06/21/19 Note: S: POD #1. Had considerable pain last night; somewhat improved this a.m. Has only used hydrocodone x 2 since surgery. Trini water; breakfast tray pend. No N/V. O: Vital Signs - 8 hr 06/21/19 06/21/19 06/21/19 00:52 01:09 02:42 Temperature 97.5 F 97.7 F Pulse Rate 73 86 Respiratory 16 16 14 Rate Blood Pressure 109/52 105/50 (mmHg) O2 Sat by Pulse 92 94 Oximetry 06/21/19 06/21/19 06/21/19 03:11 05:49 08:00 Temperature 97.7 F Pulse Rate 72 Respiratory 14 16 Rate Blood Pressure 118/62 (mmHg) O2 Sat by Pulse 94 97 Oximetry Intake and Output Last 24 Hours 06/19/19 06/20/19 06/21/19 06/22/19 06:59 06:59 06:59 06:59 Intake Total 2440 Output Total 700 Balance 1740 Weight 138 lb 9.6 oz Intake: IV Fluids 1600 LR 1600 Oral 840 Output: Urine 700 Gen: appears well; NAD Heart: reg Lungs: clear Abd: +BS; lap sites ok; soft; min tenderness to palp A: s/p lap (robotic) ventral hernia repair w/ mesh, doing reasonably well P: home today, pending tolerance of bfast. Instructions reviewed.
--- NOTE | 2019-06-21 12:39 | DS ---
Amended report to enter cosigning physician on report. CC: Dr. Анна Caputo DATE OF ADMISSION: 06/20/2019. DATE OF DISCHARGE: 06/21/2019. ATTENDING SURGEON: Dr. Justice Lomas* (MONTY Buckley dictating). HOSPITAL COURSE: Please refer to admission history and physical and operative note for details. Briefly, the patient was taken to the operating room on 06/19 and underwent robotic repair of ventral hernia with mesh. Surgery itself was unremarkable. The patient did stay overnight in the hospital for pain management. She was doing better as of the morning of discharge with pain well- controlled on oral medications. See separate progress note from today. Wound care and activity instructions were reviewed. She has a follow-up with our office on 06/27/2019. DISPOSITION/CONDITION ON DISCHARGE: She is discharged to home in good condition. MONTY BUCKLEY [id number]/[facility] #: [id number] [facility]
--- NOTE | 2019-06-22 22:43 | OP ---
CC: Анна Caputo MD* OPERATIVE REPORT: DATE OF OPERATION: 06/20/19 - Inpatient, SSU [id number] DATE OF : 37 SURGEON: Justice Lomas MD DREDGE CAPTAIN: MONTY Buckley ANESTHESIOLOGIST: Dr. Berumen. ANESTHESIA: General endotracheal. PRE-OP DIAGNOSIS: Recurrent ventral incisional hernia. POST-OP DIAGNOSIS: Recurrent ventral incisional hernia. OPERATIVE PROCEDURE: Robotic repair of recurrent ventral incisional hernia with mesh. ESTIMATED BLOOD LOSS: Minimal. IV FLUIDS: 1.5 L crystalloids. SPECIMEN: None. DRAINS: None. COMPLICATIONS: None. COUNTS: The instrument, needle, and sponge counts were correct. DESCRIPTION OF PROCEDURE: The patient was brought to the operating room and placed on the table supine. Sequential compression devices were placed on both lower extremities. General anesthesia was administered. The abdomen was prepped and draped in the usual sterile fashion. Time-out was performed. Local anesthetic was infiltrated into the skin and soft tissue prior to making each incision. Entry to the abdomen was through an open cutdown approach in the left abdomen and after accessing the peritoneal cavity, 8-mm trocar was placed and carbon dioxide was insufflated to a pressure of 15 mmHg. There were some adhesions in the upper abdomen, but no bowel adherence into the upper abdomen, just areas of omentum. There was clear abdominal wall visualized across to the right side and it was elected to place three 8-mm trocars in the right side of the abdomen to perform the operation and the initial trocar site was exchanged over to a 12-mm AirSeal port. After placing all the ports under direct visualization, pneumoperitoneum was achieved to pressure of 12 mmHg. The robot was docked. Adhesiolysis was performed freeing the omentum from the upper abdomen. Also as the falciform ligament was within the area of the hernia, this was taken down using a combination of sharp dissection and cautery. The hernia defect was about 3 inches long and it was an inch and a half wide. To close the defect primarily, the pneumoperitoneum was decreased to 7 mmHg and the 0 Stratafix suture was used to close the defect in a running fashion. After completing the closure, pneumoperitoneum was returned to 12 mmHg and a 6-inch round Bard Ventralight mesh was selected for the intraperitoneal mesh placement. This was introduced through the 12-mm port. Using the echo positioning system, it was elevated to the anterior abdominal wall and that was secured circumferentially running a 3-0 V-Loc 90 suture around the mesh and then running an inner suture of the same to create a double crown technique securing of the mesh. Subsequently, the hemostasis was assured. Ports removed under direct visualization. Carbon dioxide was released. The 12-mm port site was closed with 0 Ethibond in interrupted fashion. Skin incisions were closed with 4-0 Monocryl in subcuticular fashion. Steri-Strips were applied. The patient tolerated the procedure well and was extubated uneventfully and transferred to recovery room in stable condition. [id number]/[facility] #: [id number] YULISA
== END 2019-06-21 11:25 | disposition home or self-care (01) ==
LOC: OR 10:40 → SSU 19:48
PROVIDERS: ADMIT Physician Assistant Surgical; ATTEND Surgery
DX: K43.9 Ventral hernia without obstruction or gangrene (principal); Z79.899 Other long term (current) drug therapy; Z86.718 Personal history of other venous thrombosis and embolism; I10 Essential (primary) hypertension; E11.9 Type 2 diabetes mellitus without complications; M54.9 Dorsalgia, unspecified; Z87.891 Personal history of nicotine dependence; E78.5 Hyperlipidemia, unspecified
CPT/HCPCS: 96372; 96374; A9270-GY; G0378; J0690; J1100; J1170; J1644; J2405; J2704; J3010